=== PATIENT | male | born 1970 | race Caucasian/White ===

== ENCOUNTER 2020-11-13 14:35 | Outpatient (REF) | payer OTHER, SELFPAY | END 2020-11-13 14:36 | disposition home or self-care (01) | LOC: HO.LAB 14:35 | PROVIDERS: Visit Provider Internal Medicine | DX: Z20.822 Contact with and (suspected) exposure to COVID-19 (principal) | CPT/HCPCS: 36415; C9803; U0003 ==

== ENCOUNTER 2020-11-22 13:07 | Outpatient (REF) | payer OTHER, SELFPAY ==
[2020-11-22 13:47] LABS: MANUAL DIFF FLAG NO
[2020-11-22 14:03] LABS: Basophils Absolute Auto 0.1 X10*3/uL (0.0-0.2); Basophils Percent Auto 0.7 % (0-2); Eosinophils Absolute Auto 0.1 X10*3/uL (0.0-0.4); Eosinophils Percent Auto 1.2 % (0-4); Hematocrit 42.2 % (42-52); Hemoglobin 13.6 g/dl (14.0-18.0); Imm Gran Abs Auto 0.01 X10*3/uL (0.00-0.03); Imm Gran Pct Auto 0.1 % (0.0-0.4); Lymphocytes Percent Auto 29.1 % (20-40); Mean Corpuscular HGB Conc 32.2 g/dl (31.0-36.0); Mean Platelet Volume 12.3 fL (9.4-12.4); Monocytes Absolute Auto 0.6 X10*3/uL (0.1-1.2); Monocytes Percent Auto 8.2 % (2-11); Neutrophils Absolute Auto 4.2 X10*3/uL (2.0-8.3); Neutrophils Percent Auto 60.7 % (45-73); Platelet Count 203 X10*3/uL (160-400); Red Blood Count 4.69 X10*6/uL (4.60-5.80); Red Cell Distribution Width 13.6 % (11.0-16.0)
[2020-11-22 14:07] LABS: Glucose Urine UA NEG (NEG); Leukocyte Esterase Urine NEG (NEG); Nitrite Urine NEG (NEG); PH 5.5 (5.0-8.0); Specific Gravity - Urine >= 1.030 (1.005-1.025); Urine Blood NEG (NEG); Urine Ketones NEG (NEG); Urine Protein NEG (NEG-TRACE)
[2020-11-22 14:09] LABS: Appearance Urine CLEAR; Color Urine YELLOW
[2020-11-22 14:35] LABS: Alanine Aminotransferase 29 U/L (0-40); Albumin Level 4.3 g/dL (3.5-5.0); Alkaline Phosphatase 126 U/L (39-117); Anion Gap 14 (12-20); Aspartate Amino Transferase 24 U/L (5-37); Bilirubin Total 0.3 mg/dL (0.0-1.0); Blood Urea Nitrogen 13 mg/dL (9-16); Calcium 8.9 mg/dL (8.4-10.2); Carbon Dioxide 27 mmol/L (22-29); Chloride 102 mmol/L (96-108); Cholesterol 264 mg/dL; Estimated Glomerular Filt Rate > 60; Glucose Random 93 mg/dL (60-115); HDL Cholesterol 43 mg/dL; LDL Cholesterol Calculated 192 mg/dl; Potassium 4.8 mmol/l (3.3-5.1); Sodium 138 mmol/L (135-145); Total Protein 7.4 g/dL (6.5-8.0); Triglycerides 145 mg/dL
[2020-11-22 14:40] LABS: Reflex LDLD? No
[2020-11-22 14:59] LABS: Prostate Specific Antigen 0.69 ng/mL (<0.05-4.0); Vitamin D 25-OH Total 19.1 ng/mL (>30)
== END 2020-11-22 13:08 | disposition home or self-care (01) ==
LOC: HO.LAB 13:07
PROVIDERS: PCP Internal Medicine; Visit Provider Internal Medicine
DX: Z00.00 Encounter for general adult medical examination without abnormal findings (principal); E78.00 Pure hypercholesterolemia, unspecified; E55.9 Vitamin D deficiency, unspecified
CPT/HCPCS: 36415; 80053; 80061; 81003; 82306; 84153; 85025

== ENCOUNTER 2020-12-09 17:37 | Outpatient (REF) | payer OTHER, SELFPAY | END 2020-12-09 17:38 | disposition home or self-care (01) | LOC: HO.LAB 17:37 | PROVIDERS: Visit Provider Internal Medicine | DX: Z20.822 Contact with and (suspected) exposure to COVID-19 (principal) | CPT/HCPCS: 36415; C9803; U0003; U0005 ==

== ENCOUNTER 2021-05-23 13:33 | Outpatient (REF) | payer OTHER, SELFPAY ==
[2021-05-23 14:18] LABS: Alanine Aminotransferase 16 U/L (0-40); Albumin Level 4.4 g/dL (3.5-5.0); Alkaline Phosphatase 86 U/L (39-117); Aspartate Amino Transferase 24 U/L (5-37); Bilirubin Direct 0.2 mg/dL (0.0-0.5); Bilirubin Total 0.5 mg/dL (0.0-1.0); Cholesterol 206 mg/dL; HDL Cholesterol 48 mg/dL; LDL Cholesterol Calculated 146 mg/dl; Total Protein 6.6 g/dL (6.5-8.0); Triglycerides 62 mg/dL
[2021-05-23 15:46] LABS: Reflex LDLD? No
== END 2021-05-23 13:34 | disposition home or self-care (01) ==
LOC: HO.LNP 13:33
PROVIDERS: Visit Provider Internal Medicine
DX: E78.00 Pure hypercholesterolemia, unspecified (principal)
CPT/HCPCS: 80061; 80076

== ENCOUNTER 2022-02-02 11:01 | Outpatient (REF) | payer OTHER, SELFPAY ==
[2022-02-02 11:05] LABS: MANUAL DIFF FLAG NO
[2022-02-02 11:33] LABS: Basophils Absolute Auto 0.1 X10*3/uL (0.0-0.2); Basophils Percent Auto 0.9 % (0-2); Eosinophils Absolute Auto 0.1 X10*3/uL (0.0-0.4); Eosinophils Percent Auto 1.5 % (0-4); Hematocrit 45.8 % (42.0-52.0); Hemoglobin 14.7 g/dl (14.0-18.0); Imm Gran Abs Auto 0.01 X10*3/uL (0.00-0.03); Imm Gran Pct Auto 0.2 % (0.0-0.4); Lymphocytes Absolute Auto 1.6 X10*3/uL (1.2-4.9); Lymphocytes Percent Auto 24.9 % (20-40); Mean Corpuscular HGB Conc 32.1 g/dl (31.0-36.0); Mean Corpuscular Hemoglobin 29.3 pg (27.0-33.0); Mean Corpuscular Volume 91.4 fL (80.0-98.0); Mean Platelet Volume 12.5 fL (9.4-12.4); Monocytes Absolute Auto 0.6 X10*3/uL (0.1-1.2); Monocytes Percent Auto 8.4 % (2-11); Neutrophils Absolute Auto 4.2 x10*3/uL (2.0-8.3); Neutrophils Percent Auto 64.1 % (45-73); Platelet Count 220 X10*3/uL (160-400); Red Blood Count 5.01 X10*6/uL (4.60-5.80); Red Cell Distribution Width 13.3 % (11.0-16.0); White Blood Count 6.5 X10*3/uL (4.8-10.8)
[2022-02-02 11:40] LABS: Appearance Urine CLEAR; Color Urine YELLOW; Glucose Urine UA NEG (NEG); Leukocyte Esterase Urine NEG (NEG); Nitrite Urine NEG (NEG); PH 5.5 (5.0-8.0); Specific Gravity - Urine >= 1.030 (1.005-1.025); Urine Blood NEG (NEG); Urine Ketones NEG (NEG); Urine Protein NEG (NEG-TRACE)
[2022-02-02 11:48] LABS: Alanine Aminotransferase 24 U/L (0-40); Albumin Level 4.4 g/dL (3.5-5.0); Alkaline Phosphatase 66 U/L (39-117); Anion Gap 11 (12-20); Aspartate Amino Transferase 26 U/L (5-37); Bilirubin Total 0.8 mg/dL (0.0-1.0); Blood Urea Nitrogen 18 mg/dL (9-16); Calcium 9.6 mg/dL (8.4-10.2); Carbon Dioxide 27 mmol/L (22-29); Chloride 104 mmol/L (96-108); Cholesterol 202 mg/dL; Estimated Glomerular Filt Rate > 60; Glucose Random 110 mg/dL (60-115); HDL Cholesterol 51 mg/dL; LDL Cholesterol Calculated 139 mg/dl; Potassium 4.2 mmol/L (3.3-5.1); Sodium 138 mmol/L (135-145); Total Protein 7.4 g/dL (6.5-8.0); Triglycerides 64 mg/dL
[2022-02-02 12:03] LABS: PSA,Total (Free>4and<10) 0.63 ng/mL (0.00-4.00); Vitamin D 25-OH Total 27.8 ng/mL (>30)
== END 2022-02-02 11:02 | disposition home or self-care (01) ==
LOC: HO.LNP 11:01
PROVIDERS: Visit Provider Internal Medicine
DX: Z00.00 Encounter for general adult medical examination without abnormal findings (principal); Z12.5 Encounter for screening for malignant neoplasm of prostate; E55.9 Vitamin D deficiency, unspecified; E78.00 Pure hypercholesterolemia, unspecified
CPT/HCPCS: 80053; 80061; 81003; 82306; 84153; 85025

== ENCOUNTER 2022-06-15 15:48 | Emergency (ER) | payer OTHER, SELFPAY ==
--- NOTE | ~2022-06-15 | US_ITS ---
EXAMINATION: US VENOUS ULTRASOUND WITH DOPPLER LOWER EXTREMITY, LEFT CLINICAL INFORMATION: Left lower leg pain and cramping. COMPARISON: None TECHNIQUE: Ultrasound of the deep veins is performed from the hip to the calf with compression sonography and color and pulse Doppler assessment. Spectral analysis with color-flow imaging is performed. FINDINGS: There is normal venous compression and respiratory variation and augmented flow. The visualized common femoral vein, superficial femoral vein, profunda femoral vein, popliteal vein, and the trifurcation region shows no evidence of deep venous thrombosis. There is no significant popliteal fossa cyst. There is occlusive thrombus in the superficial saphenous vein in the left thigh. If the patient's symptoms persist, followup ultrasound in 5 days 7 days might be of value to exclude proximal propagation from a non-visualized calf vein. US/US venous duplex LE LT IMPRESSION: 1. No DVT demonstrated in the left lower extremity. 2. Occlusive thrombus in the superficial saphenous vein in the thigh. Superficial thrombophlebitis.
[2022-06-15 17:34] VITALS: BP 160/86; PULSE 60; RESP 18; TEMP 37.2; O2SAT 100; BMI 22.5
[2022-06-15 17:45] LABS: MANUAL DIFF FLAG NO
[2022-06-15 17:48] LABS: Basophils Absolute Auto 0.1 X10*3/uL (0.0-0.2); Basophils Percent Auto 0.8 % (0-2); Eosinophils Absolute Auto 0.1 X10*3/uL (0.0-0.4); Eosinophils Percent Auto 0.9 % (0-4); Hematocrit 44.2 % (42.0-52.0); Hemoglobin 14.7 g/dl (14.0-18.0); Imm Gran Abs Auto 0.03 X10*3/uL (0.00-0.03); Imm Gran Pct Auto 0.3 % (0.0-0.4); Lymphocytes Absolute Auto 1.9 X10*3/uL (1.2-4.9); Lymphocytes Percent Auto 21.6 % (20-40); Mean Corpuscular HGB Conc 33.3 g/dl (31.0-36.0); Mean Corpuscular Hemoglobin 29.5 pg (27.0-33.0); Mean Corpuscular Volume 88.8 fL (80.0-98.0); Mean Platelet Volume 11.9 fL (9.4-12.4); Monocytes Absolute Auto 0.6 X10*3/uL (0.1-1.2); Monocytes Percent Auto 7.1 % (2-11); Neutrophils Absolute Auto 6.1 x10*3/uL (2.0-8.3); Neutrophils Percent Auto 69.3 % (45-73); Platelet Count 200 X10*3/uL (160-400); Red Blood Count 4.98 X10*6/uL (4.60-5.80); Red Cell Distribution Width 13.5 % (11.0-16.0); White Blood Count 8.8 X10*3/uL (4.8-10.8)
[2022-06-15 17:52] LABS: Prothrombin Time 11.3 SEC (10.0-13.1)
[2022-06-15 18:06] LABS: Alanine Aminotransferase 24 U/L (0-40); Albumin Level 4.5 g/dL (3.5-5.0); Alkaline Phosphatase 71 U/L (39-117); Anion Gap 13 (12-20); Aspartate Amino Transferase 25 U/L (5-37); Bilirubin Total 0.4 mg/dL (0.0-1.0); Blood Urea Nitrogen 17 mg/dL (9-16); Calcium 9.3 mg/dL (8.4-10.2); Carbon Dioxide 28 mmol/L (22-29); Chloride 103 mmol/L (96-108); Estimated Glomerular Filt Rate > 60; Glucose Random 103 mg/dL (60-115); Potassium 4.4 mmol/L (3.3-5.1); Sodium 140 mmol/L (135-145); Total Protein 7.5 g/dL (6.5-8.0)
--- NOTE | 2022-06-15 19:42 | ED_ITS ---
HPI - Extremity Problem General Chief complaint: Extremity Problem Stated complaint: ?Left Leg Clot Time Seen by Provider: 06/15/22 18:55 Source: patient Mode of arrival: ambulatory History of Present Illness HPI Narrative: 52-year-old male with no significant past medical history presenting to the ED complaining left lower extremity cramping and palpable lump x1 week. Contacted PCP who instructed patient to come to the ED. Denies cigarette smoking, recent travel, long car ride/plane rides, history of clots, bleeding disorders/coagu lopathy, SOB/CP MD Complaint: extremity pain Onset (ago): week(s) Related Data Allergies Allergy/AdvReac Type Severity Reaction Status Date / Time No Known Allergies Allergy Verified 06/15/22 17:32 Review of Systems Review of Systems: Constitutional: No Fever, No Chills ENT/Mouth: No Ear Pain, No Nasal Congestion, No sore throat, No Rhinorrhea, No Swallowing Difficulty Cardiovascular: No Chest Pain, No SOB Respiratory: No Cough, No Sputum, No Wheezing Gastrointestinal: No Nausea, No Vomiting, No Diarrhea, No Constipation, No Abdominal pain Genitourinary: No Dysuria, No Urinary Incontinence/retention Musculoskeletal: + LLE cramping, No Myalgias, No Joint Swelling Skin: No Skin Lesions, No rash Neuro: No Weakness, No Numbness, No Paresthesias Yes all other systems are reviewed and are negative Constitutional: Constitutional: Reports as per [facility] Past Medical History Attestation statement: The following information was validated with the patient. Social History Social History Advance Directives: No Advance Directives Information Provided: No Physical Exam Vital Signs: Vital Signs: Last Vital Signs Temp 98.9 F 06/15/22 17:34 Pulse 60 06/15/22 17:34 Resp 18 06/15/22 17:34 BP 160/86 H 06/15/22 17:34 Pulse Ox 100 06/15/22 17:34 O2 Del Method 06/15/22 17:34 BMI result Body Mass Index 22.5 Const: General: cooperative, healthy appearing and no acute distress Orientation/consciousness: patient oriented x3 Limitations: no limitations HEENT: Head: Yes normal to inspection and Yes atraumatic Ears: hearing grossly normal bilaterally General nose exam: Normal external nose present Face and sinus: Yes normal facial exam Eyes: General: appearance normal, both eyes and all related structures EOM: EOMs intact bilaterally Neck: Neck: Yes normal visual inspection and Yes no meningeal signs Resp: Effort & Inspection: normal respiratory effort and no respiratory distress Auscultation: clear to auscultation bilaterally Cardio: Rate: regular rate Heart sounds: S1 normal heart sound present and S2 normal heart sound present GI: Inspection: Yes normal to inspection Skin: Rashes: no rashes Wounds: no wounds Neuro: General: patient oriented x3, tone normal and no meningeal signs Gait exam (Neuro): Normal gait present Extrem: Other: No appreciable lower extremity edema/swelling. + small palpable superficial thrombus to left lower extremity medial aspect below knee. Neurovascular intact distally. No streaking/ecchymosis Course Course Course Narrative: US venous duplex LE LT IMPRESSION: ? 1. No DVT demonstrated in the left lower extremity. 2. Occlusive thrombus in the superficial saphenous vein in the thigh. Superficial thrombophlebitis. -labs unremarkable Results discussed with patient including worrisome signs and symptoms and strict return precautions, and when to return to the emergency department. They verbal ized understanding and feel safe for discharge at this time. MDM - Extremity (Nontraumatic) MDM Narrative Medical decision making narrative: 52-year-old male with no significant past medical history presenting to the ED complaining left lower extremity cramping and palpable lump x1 week. On exam vi yuridia signs stable, NAD, nontoxic appearing, physical exam as above. Concern for DVT versus superficial thrombophlebitis. Low concern for CHF or infection Plan: Labs, venous duplex ultrasound Differential Diagnosis Differential diagnosis: Likely cellulitis, superficial thrombophlebitis, lower extremity edema and deep vein thrombosis of lower extremity Medical Records Attestation: I reviewed the patient's medical records. Lab Data Attestation: I reviewed the patient's lab results. Result diagrams: 06/15/22 17:39 06/15/22 17:39 Labs: Lab Results 06/15/22 06/15/22 06/15/22 Range/Units 17:39 17:39 17:39 WBC 8.8 (4.8-10.8) X10*3/uL RBC 4.98 (4.60-5.80) X10*6/uL Hgb 14.7 (14.0-18.0) g/dl Hct 44.2 (42.0-52.0) % MCV 88.8 (80.0-98.0) fL MCH 29.5 (27.0-33.0) pg MCHC 33.3 (31.0-36.0) g/dl RDW 13.5 (11.0-16.0) % Plt Count 200 (160-400) X10*3/uL MPV 11.9 (9.4-12.4) fL Immature Gran % (Auto) 0.3 (0.0-0.4) % Neut % (Auto) 69.3 (45-73) % Lymph % (Auto) 21.6 (20-40) % Morrill % (Auto) 7.1 (2-11) % Eos % (Auto) 0.9 (0-4) % Baso % (Auto) 0.8 (0-2) % Lymph # (Auto) 1.9 (1.2-4.9) X10*3/uL Morrill # (Auto) 0.6 (0.1-1.2) X10*3/uL Eos # (Auto) 0.1 (0.0-0.4) X10*3/uL Baso # (Auto) 0.1 (0.0-0.2) X10*3/uL Abs Immat Gran (auto) 0.03 (0.00-0.03) X10*3/uL Absolute Neuts (auto) 6.1 (2.0-8.3) x10*3/uL Absolute Nucleated RBC 0.000 (0.0-0.012) X10*3/uL Nucleated RBC % (auto) 0.0 (0.0-0.2) /100WBC PT 11.3 (10.0-13.1) SEC INR 1.0 (0.9-1.1) Sodium 140 (135-145) mmol/L Potassium 4.4 (3.3-5.1) mmol/L Chloride 103 (96-108) mmol/L Carbon Dioxide 28 (22-29) mmol/L Anion Gap 13 (12-20) BUN 17 H (9-16) mg/dL Creatinine 0.87 (0.5-1.4) mg/dL Estim Creat Clear Calc 116.0 Estimated GFR > 60 Random Glucose 103 (60-115) mg/dL Calcium 9.3 (8.4-10.2) mg/dL Total Bilirubin 0.4 (0.0-1.0) mg/dL AST 25 (5-37) U/L ALT 24 (0-40) U/L Alkaline Phosphatase 71 (39-117) U/L Total Protein 7.5 (6.5-8.0) g/dL Albumin 4.5 (3.5-5.0) g/dL Discharge Plan Discharge Clinical Impression: Superficial thrombophlebitis Patient Disposition: Home, Self-Care Instructions: Superficial Thrombophlebitis (ED) Additional Instructions: You have a superficial vein thrombus in her thigh. This is called superficial thrombophlebitis Recommend wearing compression stockings, apply heat, elevate your legs, take NSAIDs like Motrin/ibuprofen If symptoms persist we recommend follow-up ultrasound in 5-7 days. Preseptal follow-up with her doctor. If area begins look infected, is red, increasing swelling or your shortness of breath return to the ED Referrals: Bhargav Joe MD [Primary Care Provider] - 5 days
== END 2022-06-15 19:57 | disposition home or self-care (01) ==
PROVIDERS: Physician Assistant; Emergency Provider Internal Medicine; PCP Internal Medicine
DX: I80.02 Phlebitis and thrombophlebitis of superficial vessels of left lower extremity (principal); M79.662 Pain in left lower leg
CPT/HCPCS: 36415; 80053; 85025; 85610; 93971; 99283; 99284

== ENCOUNTER 2023-05-13 11:27 | Outpatient (REF) | payer OTHER, MEDICAID, SELFPAY ==
[2023-05-13 11:30] LABS: MANUAL DIFF FLAG NO
[2023-05-13 13:00] LABS: Basophils Absolute Auto 0.1 X10*3/uL (0.0-0.2); Basophils Percent Auto 0.9 % (0-2); Eosinophils Absolute Auto 0.2 X10*3/uL (0.0-0.4); Eosinophils Percent Auto 2.9 % (0-4); Hematocrit 44.5 % (42.0-52.0); Hemoglobin 14.4 g/dl (14.0-18.0); Imm Gran Abs Auto 0.03 X10*3/uL (0.00-0.03); Imm Gran Pct Auto 0.4 % (0.0-0.4); Lymphocytes Absolute Auto 2.4 X10*3/uL (1.2-4.9); Lymphocytes Percent Auto 29.6 % (20-40); Mean Corpuscular HGB Conc 32.4 g/dl (31.0-36.0); Mean Corpuscular Hemoglobin 29.9 pg (27.0-33.0); Mean Corpuscular Volume 92.3 fL (80.0-98.0); Mean Platelet Volume 12.4 fL (9.4-12.4); Monocytes Absolute Auto 0.8 X10*3/uL (0.1-1.2); Monocytes Percent Auto 9.3 % (2-11); Neutrophils Absolute Auto 4.6 x10*3/uL (2.0-8.3); Neutrophils Percent Auto 56.9 % (45-73); Platelet Count 214 X10*3/uL (160-400); Red Blood Count 4.82 X10*6/uL (4.60-5.80); Red Cell Distribution Width 14.2 % (11.0-16.0)
[2023-05-13 13:04] LABS: Appearance Urine Clear; Color Urine Dark Yellow; Glucose Urine UA Negative (Negative); Leukocyte Esterase Urine Negative (Negative); Nitrite Urine Negative (Negative); PH 5.5 (5.0-9.0); Urine Blood Negative (Negative); Urine Ketones Negative (Negative); Urine Protein Negative (Neg-Trace)
[2023-05-13 13:11] LABS: Bacteria Urine None Seen (None Seen); Hyaline Casts Urine 0-2 /LPF (0-2); RBC Urine 0-2 /HPF (0-2); Squamous Epithelial Cell Urine 0-2 /HPF (0-2); WBC Urine 0-5 /HPF (0-5)
[2023-05-13 13:36] LABS: Alanine Aminotransferase 31 U/L (0-40); Albumin Level 4.3 g/dL (3.5-5.0); Alkaline Phosphatase 113 U/L (39-117); Anion Gap 16 (12-20); Aspartate Amino Transferase 25 U/L (5-37); Bilirubin Total 0.4 mg/dL (0.0-1.0); Blood Urea Nitrogen 14 mg/dL (9-16); Calcium 10.2 mg/dL (8.4-10.2); Carbon Dioxide 26 mmol/L (22-29); Chloride 105 mmol/L (96-108); Cholesterol 278 mg/dL; Estimated Glomerular Filt Rate > 60; Glucose Fasting 103 mg/dL (60-99); HDL Cholesterol 45 mg/dL; LDL Cholesterol Calculated 194 mg/dl; Potassium 4.6 mmol/L (3.3-5.1); Sodium 142 mmol/L (135-145); Total Protein 7.8 g/dL (6.5-8.0); Triglycerides 198 mg/dL
[2023-05-13 13:45] LABS: Vitamin D 25-OH Total 34.9 ng/mL (>30)
== END 2023-05-13 11:28 | disposition home or self-care (01) ==
LOC: HO.LNP 11:27
PROVIDERS: Visit Provider Internal Medicine
DX: E55.9 Vitamin D deficiency, unspecified (principal); E78.00 Pure hypercholesterolemia, unspecified; Z12.5 Encounter for screening for malignant neoplasm of prostate
CPT/HCPCS: 80053; 80061; 81001; 82306; 84153; 85025

== ENCOUNTER 2023-08-20 10:55 | Outpatient (REF) | payer OTHER, SELFPAY ==
[2023-08-20 12:17] LABS: Cholesterol 254 mg/dL (<200); HDL Cholesterol 45 mg/dL (>40); LDL Cholesterol Calculated 193 mg/dL (<100); Triglycerides 80 mg/dL (<150)
[2023-08-20 12:25] LABS: Reflex LDLD? No
== END 2023-08-20 10:56 | disposition home or self-care (01) ==
LOC: HO.LNP 10:55
PROVIDERS: Visit Provider Internal Medicine
DX: E78.00 Pure hypercholesterolemia, unspecified (principal)
CPT/HCPCS: 80061

== ENCOUNTER 2024-05-18 10:52 | Outpatient (REF) | payer OTHER, SELFPAY ==
[2024-05-18 10:56] LABS: MANUAL DIFF FLAG NO
[2024-05-18 11:10] LABS: Appearance Urine Clear; Basophils Absolute Auto 0.1 X10*3/uL (0.0-0.2); Basophils Percent Auto 0.8 % (0-2); Color Urine Yellow; Eosinophils Absolute Auto 0.1 X10*3/uL (0.0-0.4); Eosinophils Percent Auto 1.3 % (0-4); Glucose Urine UA Negative (Negative); Hematocrit 44.2 % (42.0-52.0); Hemoglobin 14.1 g/dl (14.0-18.0); Imm Gran Abs Auto 0.09 X10*3/uL (0.00-0.03); Leukocyte Esterase Urine Negative (Negative); Lymphocytes Absolute Auto 2.4 X10*3/uL (1.2-4.9); Lymphocytes Percent Auto 27.3 % (20-40); Mean Corpuscular HGB Conc 31.9 g/dl (31.0-36.0); Mean Corpuscular Hemoglobin 29.3 pg (27.0-33.0); Mean Corpuscular Volume 91.7 fL (80.0-98.0); Mean Platelet Volume 10.3 fL (9.4-12.4); Monocytes Absolute Auto 0.8 X10*3/uL (0.1-1.2); Monocytes Percent Auto 9.6 % (2-11); Neutrophils Absolute Auto 5.2 x10*3/uL (2.0-8.3); Nitrite Urine Negative (Negative); Platelet Count 515 X10*3/uL (160-400); Red Blood Count 4.82 X10*6/uL (4.60-5.80); Urine Blood Negative (Negative); Urine Ketones Negative (Negative); Urine Protein Negative (Neg-Trace); White Blood Count 8.6 X10*3/uL (4.8-10.8)
[2024-05-18 11:12] LABS: Bacteria Urine None Seen (None Seen); Hyaline Casts Urine 0-2 /LPF (0-2); RBC Urine 0-2 /HPF (0-2); Squamous Epithelial Cell Urine 0-2 /HPF (0-2); WBC Urine 0-5 /HPF (0-5)
[2024-05-18 11:32] LABS: Alanine Aminotransferase 35 U/L (0-40); Albumin Level 4.1 g/dL (3.5-5.0); Alkaline Phosphatase 75 U/L (39-117); Anion Gap 14 (12-20); Aspartate Amino Transferase 23 U/L (5-37); Bilirubin Total 0.3 mg/dL (0.0-1.0); Blood Urea Nitrogen 17 mg/dL (9-16); Calcium 9.6 mg/dL (8.4-10.2); Carbon Dioxide 28 mmol/L (22-29); Chloride 100 mmol/L (96-108); Cholesterol 260 mg/dL (<200); Estimated Glomerular Filt Rate > 60; Glucose Fasting 109 mg/dL (60-99); HDL Cholesterol 34 mg/dL (>40); LDL Cholesterol Calculated 173 mg/dL (<100); Potassium 4.3 mmol/L (3.3-5.1); Sodium 138 mmol/L (135-145); Total Protein 7.8 g/dL (6.5-8.0); Triglycerides 266 mg/dL (<150)
[2024-05-18 11:40] LABS: PSA,Total (Free>4and<10) 1.21 ng/mL (0.00-4.00)
[2024-05-18 11:46] LABS: Vitamin D 25-OH Total 57.3 ng/mL (>30)
== END 2024-05-18 10:53 | disposition home or self-care (01) ==
LOC: HO.LNP 10:52
PROVIDERS: Visit Provider Internal Medicine
DX: Z00.00 Encounter for general adult medical examination without abnormal findings (principal); E55.9 Vitamin D deficiency, unspecified; E78.00 Pure hypercholesterolemia, unspecified; Z12.5 Encounter for screening for malignant neoplasm of prostate
CPT/HCPCS: 80053; 80061; 81001; 82306; 84153; 85025

== ENCOUNTER 2024-05-22 11:31 | Day surgery (SDC) | payer OTHER, SELFPAY ==
[2024-05-18 14:51] VITALS: BMI 23.5
--- NOTE | 2024-05-22 11:43 | HO.ANESPROP2 ---
FORMERLY [facility] Past Medical History Medical History Port-wine stain JAYME (obstructive sleep apnea) Psoriasis Surgical History Surgical History Hx of foot surgery Hx of knee surgery Hx of elbow surgery History of Problems with Anesthesia: No Social History Social History Patient Tobacco Use Status: Former Tobacco user Tobacco use type: Cigarette Use of substances other than those prescribed or required for medical reasons: Yes Are you DNR?: No Advance Directives: No Advance Directives Information Provided: Yes Meds Allergies Allergy/AdvReac Type Severity Reaction Status Date / Time No Known Allergies Allergy Verified 06/15/22 17:32 Active Medications: Current Medications Sodium Biphosphate/Sodium Phosphate (Sodium Phosphate,[place]-Dibasic 133 Ml Enema) 133 ml ID ONCE PRN PRN Reason: Poor Colonoscopy Prep Results Home Medications ?Medication ?Instructions ?Recorded ?Confirmed ?Last Taken ?Type aspirin 81 mg tablet,delayed 81 mg PO DAILY 05/18/24 05/18/24 Unknown History release valacyclovir 1 gram tablet 1,000 mg PO DAILY 05/18/24 05/18/24 Unknown History doxycycline monohydrate 100 mg 100 mg PO BID 05/22/24 05/22/24 05/22/24 History capsule Exam Height,Weight and Vital Signs: Height 6 ft 3 in Weight 85.275 kg Airway Mallampati Class: III TM Dist: >3cm Neck ROM: Full Loose/Missing/Broken Teeth: No Heart: RRR Lungs: CTA Assessment and Plan Assessment Anesthesia Assessment: Anesthesia Plan Discussed and Chart Reviewed Final Anesthetic Review History of Problems with Anesthesia: No NPO: Yes ASA Class: III Final Preanesthetic Review: Meds/Allgs Chart Reviewed, Consent Obtained/Reviewed and Anes Risks/Benef Reviewed Patient Risk: Intermediate Procedure Risk: Low Anesthetic Plan Anesthetic Plan: MAC: Disposition: Standard PACU
[2024-05-22 11:47] VITALS: BMI 23.2
[2024-05-22 11:55] VITALS: BP 129/64; PULSE 56; RESP 16; TEMP 37.1; O2SAT 99
[2024-05-22] MEDS: Lactated Ringers 1,000 ML 50 ML IVCONT (12:08)
--- NOTE | 2024-05-22 12:39 | PC.NURSE ---
Dr. Reyna at bedside, 24hr update documented on paper
--- NOTE | 2024-05-22 12:57 | HO.ANESPROP2 ---
[facility] Past Medical History Medical History Port-wine stain JAYME (obstructive sleep apnea) Psoriasis Surgical History Surgical History Hx of foot surgery Hx of knee surgery Hx of elbow surgery History of Problems with Anesthesia: No Social History Social History Patient Tobacco Use Status: Former Tobacco user Tobacco use type: Cigarette Use of substances other than those prescribed or required for medical reasons: Yes Are you DNR?: No Advance Directives: No Advance Directives Information Provided: Yes Meds Allergies Allergy/AdvReac Type Severity Reaction Status Date / Time No Known Allergies Allergy Verified 06/15/22 17:32 Active Medications: Current Medications Lactated Ringer's (Lr) 1,000 mls @ 50 mls/hr IVCONT .Q20H DENILSON Last Admin: 05/22/24 12:08 Dose: 50 mls/hr Sodium Biphosphate/Sodium Phosphate (Sodium Phosphate,Bullock-Dibasic 133 Ml Enema) 133 ml UT ONCE PRN PRN Reason: Poor Colonoscopy Prep Results Home Medications ?Medication ?Instructions ?Recorded ?Confirmed ?Last Taken ?Type aspirin 81 mg tablet,delayed 81 mg PO DAILY 05/18/24 05/18/24 Unknown History release valacyclovir 1 gram tablet 1,000 mg PO DAILY 05/18/24 05/18/24 Unknown History doxycycline monohydrate 100 mg 100 mg PO BID 05/22/24 05/22/24 05/22/24 History capsule Exam Height,Weight and Vital Signs: Height 6 ft 3 in Weight 84.028 kg Last Vital Signs Temp 98.7 F 05/22/24 11:55 Pulse 56 05/22/24 11:55 Resp 16 05/22/24 11:55 BP 129/64 05/22/24 11:55 Pulse Ox 99 05/22/24 11:55 O2 Del Method Room Air 05/22/24 11:55 Airway Mallampati Class: III TM Dist: >3cm Neck ROM: Full Loose/Missing/Broken Teeth: No Heart: RRR Lungs: CTA Assessment and Plan Assessment Anesthesia Assessment: Anesthesia Plan Discussed Final Anesthetic Review History of Problems with Anesthesia: No NPO: Yes ASA Class: III Final Preanesthetic Review: Meds/Allgs Chart Reviewed, Consent Obtained/Reviewed and Anes Risks/Benef Reviewed Patient Risk: Intermediate Procedure Risk: Low Anesthetic Plan Anesthetic Plan: MAC: Disposition: Standard PACU
[2024-05-22 13:50] VITALS: BP 112/62; PULSE 62; RESP 18; TEMP 36.2; O2SAT 99
--- NOTE | 2024-05-22 13:53 | PM.OP ---
Brief Operative Note Date of Service: 05/22/24 Pre-op diagnosis: Screening Post-op diagnosis: other (Diverticulosis) Procedure: Colonoscopy to the cecum and TI Surgeon: Nazario Reyna MD Anesthesia: MAC Was an Senior Private Client Advisor used for this Procedure?: No Estimated blood loss (mL): 0 Pathology: none sent Condition: stable Disposition: PACU
[2024-05-22 14:05] VITALS: BP 119/66; PULSE 60; RESP 18; TEMP 36.2; O2SAT 100
--- NOTE | 2024-05-22 14:09 | OP_ITS ---
DATE OF SERVICE: 05/22/2024 SURGEON: Nazario Reyna MD INDICATIONS: The patient presents for evaluation of colorectal cancer screening. Full consent has been obtained from him for this, including risks of bleeding and perforation. PREOPERATIVE DIAGNOSIS: Colorectal cancer screening. POSTOPERATIVE DIAGNOSIS: PROCEDURE PERFORMED: Colonoscopy to cecum and terminal ileum. ESTIMATED BLOOD LOSS: COMPLICATIONS: ANESTHESIA: Monitored anesthesia care. ASSISTANTS: SPECIMENS: POSTOPERATIVE DIAGNOSES: Colorectal cancer screening, diverticulosis, internal hemorrhoids. DESCRIPTION OF PROCEDURE: The patient was placed in the left lateral decubitus position. The digital rectal exam revealed no abnormalities. The Olympus video pediatric colonoscope was then entered into the rectum and advanced easily to the cecum. Once in the cecum, I did identify normal-appearing cecal pouch with appendiceal orifice and a normal-appearing ileocecal valve. The terminal ileum was cannulated and appeared normal. Scope was withdrawn back in the colon. The entire cecum and ileocecal valve appeared normal. The scope was then slowly withdrawn assessing all mucosal surfaces carefully. Preparation was excellent. I did not visualize any sign of polyps, colitis, nor angiodysplasias. There was a mild amount of sigmoid diverticulosis. In the rectum, scope was retroflexed, visualizing small internal hemorrhoids, but no other pathology. The rectal mucosa appeared normal. The scope was straightened and withdrawn from the patient. He tolerated the procedure well and was returned to the recovery area in stable condition. IMPRESSION: 1. Mild sigmoid diverticulosis. 2. Internal hemorrhoids. PLAN: Given today's negative exam and negative family history, I would recommend a followup colonoscopy in 10 years for screening. He will, otherwise, see me on a p.r.n. basis. MD ERIC Severino/ALEX / [phone]
== END 2024-05-22 14:45 | disposition home or self-care (01) ==
PROVIDERS: PCP Internal Medicine; Visit Provider Internal Medicine
PROC: 0DJD8ZZ Inspection of Lower Intestinal Tract, Via Natural or Artificial Opening Endoscopic (ICD-10-PCS; CPT 45378; principal; 2024-05-22 12:30)
DX: Z12.11 Encounter for screening for malignant neoplasm of colon (principal); K57.30 Diverticulosis of large intestine without perforation or abscess without bleeding; K64.8 Other hemorrhoids; L40.9 Psoriasis, unspecified; Z79.82 Long term (current) use of aspirin; Z79.899 Other long term (current) drug therapy; Z87.891 Personal history of nicotine dependence
CPT/HCPCS: 45378; J2250; J2704

== ENCOUNTER 2025-05-21 10:47 | Outpatient (REF) | payer OTHER, SELFPAY ==
[2025-05-21 10:55] LABS: MANUAL DIFF FLAG NO
[2025-05-21 11:26] LABS: Appearance Urine Clear; Glucose Urine UA Negative (Negative); PH 5.5 (5.0-9.0); Specific Gravity - Urine 1.020 (1.005-1.025)
[2025-05-21 11:28] LABS: Hematocrit 40.8 % (42.0-52.0); Hemoglobin 13.5 g/dl (14.0-18.0); Imm Gran Abs Auto 0.02 X10*3/uL (0.00-0.03); Imm Gran Pct Auto 0.3 % (0.0-0.4); Lymphocytes Absolute Auto 1.4 X10*3/uL (1.2-4.9); Mean Corpuscular HGB Conc 33.1 g/dl (31.0-36.0); Mean Corpuscular Hemoglobin 29.9 pg (27.0-33.0); Mean Corpuscular Volume 90.5 fL (80.0-98.0); NRBC Abs Auto 0.000 X10*3/uL (0.0-0.012); NRBC Pct Auto 0.0 /100WBC (0.0-0.2); Platelet Count 161 X10*3/uL (160-400); Red Blood Count 4.51 X10*6/uL (4.60-5.80); White Blood Count 5.8 X10*3/uL (4.8-10.8)
[2025-05-21 11:44] LABS: Alanine Aminotransferase 21 U/L (0-40); Albumin Level 4.0 g/dL (3.5-5.0); Alkaline Phosphatase 63 U/L (39-117); Anion Gap 9 (12-20); Aspartate Amino Transferase 24 U/L (5-37); Blood Urea Nitrogen 14 mg/dL (9-16); Calcium 8.5 mg/dL (8.4-10.2); Carbon Dioxide 27 mmol/L (22-29); Chloride 107 mmol/L (96-108); Cholesterol 218 mg/dL (<200); Estimated Glomerular Filt Rate > 60; HDL Cholesterol 47 mg/dL (>40); Potassium 4.3 mmol/L (3.3-5.1); Sodium 139 mmol/L (135-145); Total Protein 6.6 g/dL (6.5-8.0); Triglycerides 66 mg/dL (<150)
--- OUTSIDE RECORDS SUMMARY | 2025-05-21 11:56 | XMS_ITS | Data Portability ---
Author Organization [facility], [facility] Address [address] [place] [address] Assessment Encounter Date Assessment Date Assessment LastModified by Organization Details LastModified Time 01/17/2024 01/17/2024 Diagnosis: right elbow olecranon bursitis infected hardware HPI: Ty is a very pleasant 53-year-old gentleman who had an ORIF of his right elbow [place] [address] Wilson. The fracture went on to heal and he has had some ongoing issues with olecranon bursitis. He was seen last in May at which time he had olecranon bursitis. He reports that he was seen by dermatology they drained and cultures were negative she reports they cauterized it and it has been progressing nicely since then he now has had some ongoing drainage and is here today for follow-up. He Had a strep species growing in the elbow. He went to surgery for I&D and removal of hardware and 12/29/2023. The main incision is healed. He has a little bit of drainage out of the excision of the fistula. He remains on Augmentin. He tolerates it well. Past medical history: Right knee surgery, high cholesterol, sleep apnea, psoriasis Medications: Zoryve Allergies: NKDA Social history: Marijuana Family history: Diabetes and hypertension Past family, medical, social history and review of systems has been reviewed, updated and is located in the patient s chart. Examination:The patient is well appearing and in no apparent distress. Alert and oriented x3. Physical examination the right elbow reveals his incisions to be Healing well. Yuliet are removed and Steri-Strips were applied. There is no erythema and no evidence of infection. He does have some limits in range of motion of the elbow as a result of the previous fracture but reports no pain with range of motion of the elbow there is a small opening at the olecranon with some purulent drainage. Impression: Draining sinus status post ORIF right elbow fracture With removal of deep hardware Plan: I reviewed the findings with Ty at this point. He will continue on Augmentin for 6 weeks total postop. His sutures were removed and Steri-Strips were applied. He should keep this covered. He may return to work tomorrow. In 4 weeks for reevaluation. It appears his other hardware is not involved. He may start using steroid cream on his plaques. He will use TTylenol for pain. Embly speech recognition hr shared services consultant software was used to create portions of this document. An attempt at proof reading has been made to minimize errors. Please call for corrections. [email or web address] Not available 01/17/2024 13:11:39 02/17/2024 02/17/2024 Diagnosis: right elbow olecranon bursitis infected hardware HPI: Ty is a very pleasant 53-year-old gentleman who had an ORIF of his right elbow in [address] Wilson. The fracture went on to heal and he has had some ongoing issues with olecranon bursitis. He was seen last in May at which time he had olecranon bursitis. He reports that he was seen by dermatology they drained and cultures were negative she reports they cauterized it and it has been progressing nicely since then he now has had some ongoing drainage and is here today for follow-up. He Had a strep species growing in the elbow. He went to surgery for I&D and removal of hardware and 12/29/2023. The main incision is healed. He has a little bit of drainage out of the excision of the fistula. He finished his Augmentin. His elbow has been doing much better. It is not have any pain. He is working. He is happy with his result. Past medical history: Right knee surgery, high cholesterol, sleep apnea, psoriasis Medications: Zoryve Allergies: NKDA Social history: Marijuana Family history: Diabetes and hypertension Past family, medical, social history and review of systems has been reviewed, updated and is located in the patient s chart. Examination:The patient is well appearing and in no apparent distress. Alert and oriented x3. Physical examination the right elbow reveals his incisions to be Healing well. [place] are removed and Steri-Strips were applied. There is no erythema and no evidence of infection. He does have some limits in range of motion of the elbow as a result of the previous fracture but reports no pain with range of motion of the elbow. There is no sign of infection Impression: Resolved Draining sinus status post ORIF right elbow fracture With removal of deep hardware Plan: I reviewed the findings with Ty at this point. He has done very well. The wound has healed. He does not have any other symptoms. His other hardware does not appear infected. He will follow-up on a p.r.n. basis. All questions were answered. He may use Tylenol for pain. Embly speech recognition hr shared services consultant software was used to create portions of this document. An attempt at proof reading has been made to minimize errors. Please call for corrections. [email or web address] Not available 02/17/2024 12:47:40 05/19/2024 05/19/2024 Diagnosis: right elbow olecranon bursitis infected hardware HPI: Ty is a very pleasant 53-year-old gentleman who had an ORIF of his right elbow in [address] Wilson. The fracture went on to heal and he has had some ongoing issues with olecranon bursitis. He was seen last in May at which time he had olecranon bursitis. He reports that he was seen by dermatology they drained and cultures were negative she reports they cauterized it and it has been progressing nicely since then he now has had some ongoing drainage and is here today for follow-up. He Had a strep species growing in the elbow. He went to surgery for I&D and removal of hardware and 12/29/2023. The main incision is healed. He has a little bit of drainage out of the excision of the fistula. He finished his Augmentin. His elbow has been doing much better. It is not have any pain. He is working. He is happy with his result. 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 They debrided this and had drainage. He was started on doxycycline. It was improving. It has dried up again. Past medical history: Right knee surgery, high cholesterol, sleep apnea, psoriasis Medications: Zoryve Allergies: NKDA Social history: Marijuana Family history: Diabetes and hypertension Past family, medical, social history and review of systems has been reviewed, updated and is located in the patient s chart. Examination:The patient is well appearing and in no apparent distress. Alert and oriented x3. Physical examination the right elbow reveals his incisions to be Healing well. Yuliet are removed and Steri-Strips were applied. There is no erythema and no evidence of infection. He does have some limits in range of motion of the elbow as a result of the previous fracture but reports no pain with range of motion of the elbow. There is no sign of infection.. He does have a small scab on the tip of the olecranon. The operative incision is well-healed. Impression: Resolved Draining sinus status post ORIF right elbow fracture With removal of deep hardware And persistent scabbing Plan: I reviewed the findings with Ty at this point. He has done very well. The wound has healed. He does Have some new scabbing over the tip of the olecranon. I suspect this will resolve on its own. It will take more time. I will see him back in 6 weeks for reevaluation. He should finish up his doxycycline. He may continue to work. He may use Tylenol for pain. All questions were answered. If this looks worse, he may require further surgery in the future. His other hardware does not appear infected. Embly speech recognition hr shared services consultant software was used to create portions of this document. An attempt at proof reading has been made to minimize errors. Please call for corrections. [email or web address] Not available 05/19/2024 11:46:55 Plan of Treatment Reminders Order Date Submit Date Provider Last Modified By Organization Details Last Modified Time Details Appointments None recorde d. Lab None recorde d. Referral None recorde d. Procedures None recorde d. Surgeries None recorde d. Imaging XR, elbow, 3 or more view - RM 307 3V RIGHT ELBOW 024 05/19/20 24 [facility] [email or web address] [facility], [address], [place], [address], 4 09:01:56 XR, elbow, 3 or more view - 308 3V R ELBOW 024 02/17/20 24 [facility] [email or web address] [facility], [address], [address], [place], [address], 4 06:56:45 XR, elbow, 3 or more view - Room 309- 3V R Elbow- 1st PO - Pt in Room 024 01/17/20 [facility], [address], [place], [address], 4 15:57:20 Medication Orders None recorde d. Patient TargetsNo targets recorded. Patient Instructions Encounter Date Encounter Id Patient Instructions Last Modified By Organization Details Last Modified Time 01/17/2024 [id number] work status report* - PT MAY RETURN TO WORK 01/18/2024 cecelia Not available 01/24/2024 07:04:15 Reason for Referral None Reported. Results Created Date Observation Date Name Description Value Unit Range Abnormal Flag Note LastModifiedBy Organization Detail LastModifiedTime 05/19/20 24 05/19/2024 XR, elbow , 3 or more view http:/ [email or web address] ?Encry pted=s hAaTro YD8dLq bEUv6g %2BXZw aYqtaq 0bqfl% 2Fg9IQ a4ajBk vP9nXo QUaueC m3YtLR FvZlgJ JJ8mAn HZtai3 9h3733 AC0KpY nqHVqb eUC8mr 84%3D INTERFACE [facility] [address], [place], [address], 05/19/2024 09:30:48 05/19/20 24 05/19/2024 XR, elbow , 3 or more view [email or web address] ?Encry pted=s hAaTro YD8dLq bEUv6g %2BXZw aYqtaq 0bqfl% 2Fg9IQ a4ajBk vP9nXo QUaueC m3YtLR FvZlgJ JJ8mAn HZtai3 1d2657 AC0KpY nqHVqb eUC8mr 84%3D INTERFACE [facility] [address], [place], [address], 05/19/2024 09:30:50 06/30/20 24 12/07/2023 imagi ng/di agnos tic resul t No observ ation record ed. [email or web address] Not Available 06/03 16:25:22 06/30/20 24 09/21/2020 imagi ng/di agnos tic resul t No observ ation record ed. [email or web address] Not Available 06/03 16:26:02 06/30/20 24 09/30/2020 imagi ng/di agnos tic resul t No observ ation record ed. [email or web address] Not Available 06/03 16:26:07 Result Notes Documentation Provider Name and Address Organization Details Recorded Time Xr, Elbow, 3 Or More View : [email or web address] Encrypted=cvNwYgmFS2qArnM Uv6g%6LXGioQrcye5kodn%2Fg 3ZYs4byJfkO0kSbPLtvyRr8Nx TUZvErrSDW7kBtXVypc92e006 6PS2WrQrsZZnzpQN2mf26%3D Not Available [facility] 05/19/2024 09:3 0:49 Xr, Elbow, 3 Or More View : [email or web address] Encrypted=ytZfTnrLN4xJmcO Uv6g%8RYKuhWcvnz4qlmc%2Fg 4XUs6lxXevN7rHbDQftmJz5Rf KYJuUbkKNK7sWdRTfpn25c830 5EU3IePbwILgcaSF6gh40%3D Not Available [facility] 05/19/2024 09:3 0:51 Problems Name Problem SNOMED Code Status Onset Date Resolution Date Notes Provider Name and Address Organization Details Recorded Time Pain of right elbow joint 9705499000536 9109 Active 2023 OSMANISARAH cunningham [place] - [facility] 10:29:00 Closed fracture distal humerus, bicondylar (T-Y fracture) 590405527 Active 2023 Jadon Bray MD [address], [place], [place], [address], [facility] - [facility] 4 13:12:16 Pain associated with internal prosthetic device 083680247 Active 2023 Jadon Bray MD [address], [place], [place], [address], [facility] - [facility] 4 13:13:15 Problem Notes None recorded. Medical Equipment None Reported. Allergies No known drug allergies Medications Name Sig Start Date Stop Date Status Note LastModified by Organization Details LastModified Time amoxicillin 500 mg capsule TAKE 1 CAPSULE BY MOUTH TWO TIMES A DAY 02/16 completed Not Available Not Available Not Available doxycycline hyclate 100 mg capsule TAKE 1 CAPSULE BY MOUTH TWICE DAILY 01/16 completed Not Available Not Available Not Available valacyclovi r 1 gram tablet TAKE 1 TABLET BY MOUTH EVERY DAY FOR 30 DAYS active Not Available Not Available No t Available sulfamethox azole 800 mg-trimetho prim 160 mg tablet TAKE 1 TABLET BY MOUTH TWICE A DAY WITH FOOD 01/16 completed Not Available Not Available Not Available aspirin 81 mg tablet,julius yed release TAKE 1 TABLET BY MOUTH 2 TIMES A DAY. 01/16 completed Not Available Not Available Not Available doxycycline monohydrate 100 mg capsule TAKE 1 CAPSULE TWICE A DAY WITH FOOD FOR 7 DAYS active Not Available Not Available No t Available cephalexin 500 mg capsule TAKE 1 CAPSULE BY MOUTH FOUR TIMES A DAY FOR 5 DAYS 01/16 completed Not Available Not Available Not Available oxycodone 5 mg tablet TAKE 1 TABLET (5 MG TOTAL) BY MOUTH EVERY 4 (FOUR) HOURS NEEDED FOR PAIN 01/16 completed Not Available Not Available Not Available EC-Naproxen EC-Naprox en 500MG Tablet Delayed Release 11/20 completed Statu s: 'Disc ontin ued'; Not Available Not Available Not Available Zoryve 0.3 % topical cream Apply to the psoriasis areas once daily 01/16 completed Not Available Not Available Not Available Vitals Date Recorded Body height Body mass index (BMI) Body weight Provider Name and Address Organization Details Last Updated DateTime 01/17/2024 190.5 cm 25.7 kg/m2 59064.03 g OSMANI WELLS [facility] 01/17/2024 10:21:44 Date Recorded Body height Provider Name an d Address Organization Details Last Updated DateTime 02/17/2024 190.5 cm OSMANI WELLS [facility] 02/17/2024 11:10:48 Date Recorded Body height Body mass index (BMI) Body weight Provider Name and Address Organization Details Last Updated DateTime 05/19/2024 190.5 cm 25.6 kg/m2 82344.44 g OSMANI WELLS [facility] 05/19/2024 09:20:58 Social History None recorded. Functional Status None recorded. Mental Status None recorded. Family History Nothing Reported. Medical History No medical history recorded. Past Encounters Encounter ID Performer Location Encounter Start Date Encounter Closed Date Diagnosis/Indication Diagnosis SNOMED-CT Code Diagnosis ICD10 Code Diagnosis Note [id number] MD Mauri Barertt [address] [place] [address] [address] [place] [address] 01/17/2024 10:04:13 02/02/2024 15:57:20 Pain of right elbow joint 9851524397 0881216 M25.521 Closed fra cture distal humerus, bicondylar (T-Y fracture) 931617492 S42.491D Pain assoc iated with internal prosthetic device 959880276 T84.84XD [id number] MD Mauri Barrett [address] [facility] [address] [place] [address] 02/17/2024 10:30:13 03/10/2024 06:56:45 Pain of right elbow joint 1881555580 2264259 M25.521 Closed fra cture distal humerus, bicondylar (T-Y fracture) 917655521 S42.491D [id number] MD Mauri Barrett [address] [facility] [address] [place] [address] 05/19/2024 09:13:01 06/19/2024 09:01:55 Pain of right elbow joint 2415773991 9523506 M25.521 Closed fra cture distal humerus, bicondylar (T-Y fracture) 303841803 S42.491D Health Concerns Section Related Observation LastModified by Organization Detai ls LastModified Time None Recorded Concern Status LastModified by Organization Details LastModified Time None Recorded Advance Directives Directive None Recorded Payers Insurance Date Sequence Insurance Name Policy Number Policy [place] Covered Member ID [place] Member ID Guarantor Name 06/26/2024 1 [facility] [id number] 1 Ty Nicholson [id number] Ty Nicholson
--- OUTSIDE RECORDS SUMMARY | 2025-05-21 11:56 | XMS_ITS | Patient Health Record ---
Author Organization [facility] Address [address] [place] [address] Support Name Relationship Address Phone ELIANA LAO Emergency Contact [address] [place] [address] LATANYA LAO Guarantor Unknown [phone] Care Team Providers Care Pad Tufter Name Role Phone Heath RAI, Bhargav Primary Care Provider Nazario Slaughter [phone] Allergies No Known Allergies Reason For Referral No Information Medications Medication SIG (Take, Route, Frequency, Duration) Notes Start Date End Date Status Zoryve 0.3 % Apply to the psoriasis areas once daily External for 30 L400,Unavailabl e Active valACYclovir HCl 1 GM Oral for 30 Active Aspirin 81 81 MG 1 tablet Orally Once a day for 30 day(s) Active Social History Tobacco Use: Social History Observation Description Date Details (start date - stop date) Former Smoker NA - NA Tobacco Use/Smoking Question Answer Notes Patient is a former smoker How long has it been since you last smoked? 1-5 years Alcohol Screen Question Answer Notes Did you have a drink containing alcohol in the p ast year? No Points 0 Interpretation Negative Section Notes: Nonsmoker; no sig alcohol Problems Problem Type SNOMED Code ICD Code Onset Dates Problem Status W/U Status Risk Notes Problem Colon cancer screening (597853600) Colon cancer screening (Z12.11) Active confirmed Problem Pre-procedure evaluation check (293772501) Encounter for other preprocedural examination (Z01.818) Active confirmed Problem Diverticulosis o f large intestine without perforation or abscess without bleeding (K57.30) Active confirmed Encounters Encounter Location Date Provider Diagnosis [facility] Outpatient [address] [place], [place] [id number] 05/22/2024 Nazario Reyna Colon cancer scree kartik [...] hemorrhoids (ICD-10 - K64.8) Plan Of Treatment Future Test Test Name Order Date COLONOSCOPY 02/29/2024 Insurance Providers Payer Name Payer Address Payer Phone Subscriber Number Group Number Insured Name Patient Relationship to Insured Coverage Start Date Coverage End Date [facility] [address] [place] [address] [phone] [id number] LATANYA LAO Self - patient is the insured Medical (General) History Medical History History ICD Code Denies PR,DM,CVA,Lung disease,renal dise ase Psoriasis Surgical History Surgery Date(Month/Year) Elbow right 2023 Knee right 2022 Heel right 2007
--- OUTSIDE RECORDS SUMMARY | 2025-05-21 11:57 | XMS_ITS | Patient Health Record ---
Author Organization Bhargav Joe MD Address [address] [place], [place] [id number] Care Team Providers Care Duplex Trimmer Name Role Phone Bhargav Joe Primary Care Provider Allergies No Known Allergies Results Component Value Reference Range Notes Occult Blood, Stool, Guaiac Reviewed date:05/23/2024 05:03:31 PM Interpretation:Negative Performing Lab: Notes/Report: Negative Hold Lav - Possible Hematolo gy (Not yet reviewed by provider) Interpretation: Performing Lab:[facility], [address] [place] [phone] Notes/Report: Hold Lav - Possible Hematology SEE NOTE Specimen will be held untested for 8 hours. Call Hematology if testing is desired. Complete Blood Count Auto Di ff (Not yet reviewed by provider) Interpretation: Performing Lab:[facility], [address] [place] [phone] Notes/Report: White Blood Count 5.8 4.8-10.8 X10*3/uL [...] X10*3/uL NRBC Abs Auto 0.000 0.0-0.012 X10*3/uL UA ClnCatch+Micro w/rflx Cul t (Not yet reviewed by provider) Interpretation: Performing Lab:[facility], [address] [place] [phone] Notes/Report: [id number] Urine, Clean Catch Color Urine Yellow Appearance Urine Clear PH 5.5 5.0-9.0 Glucose Urine UA Negative Negative mg/dL Urine Blood Negative Negative Specific [place] - Urine 1.020 1.005-1.025 Urine Protein Negative Neg-Trace mg/dL Urine Ketones Negative Negative mg/dL Nitrite Urine Negative Negative Leukocyte Esterase Urine Negative Negative RBC Urine 0-2 0-2 /HPF WBC Urine 0-5 0-5 /HPF Squamous Epithelial Cell Urine 0-2 0-2 /HPF Bacteria Urine None Seen None Seen Hyaline Casts Urine 0-2 0-2 /LPF Reason For Referral Reason JAYME Diagnosis 1 [...] Referral Priority Routine Referral Appointment Date 09/12/2024 Medications Medication SIG (Take, Route, Frequency, Duration) Notes Start Date End Date Status valACYclovir HCl 1 GM 1 tablet Orally On ce a day for 90 days 05/18/2022 Active Vitamin D3 2000 UNIT 2 tablet Orally Onc e a day 01/07/2018 Active Tadalafil 20 MG as directed Oral onc e a day as needed for 30 days 12/27/2018 Active Zoryve 0.3 % 1 application Externally Once a day Active Silvadene 1 % 1 application to affected area Externally Once a day for 30 days 09/20/2017 Not-Taking Sildenafil Citrate 20 MG 2 tablet Orally Once a day for 30 day(s) 06/23/2018 Not-Taking Rosuvastatin Calcium 20 MG 1 tablet Orally Once a day for 30 day(s) 06/23/2018 Not-Taking Cephalexin 500 MG 1 capsule Orally Fou r times a day for 5 day(s) 05/20/2023 Active Immunizations Vaccine Route Administration Date Status Comme nts Covid Vaccine Unknown 02/09/2021 Administered [facility] a [facility] Lambert Fluarix Quadrivalent Unknown 11/19/2017 Refused Fluarix Quadrivalent Unknown 01/23/2019 Refused Fluarix Quadrivalent Unknown 11/29/2020 Refused Fluarix Quadrivalent Unknown 08/20/2023 Refused Social History Tobacco Use: Social History Observation [...] Problem Status W/U Status Risk Notes Problem 52949104 Vitamin D defici ency (E55.9) Active confirmed Problem 725634159 Erectile dysfunc tion due to diseases classified elsewhere (N52.1) Active confirmed Problem 0721757 Psoriasis (L40.9) Active confirmed Problem 12814489 Obstructive slee p apnea syndrome (G47.33) Active confirmed Problem 947868101 Erectile dysfunc tion, unspecified erectile dysfunction type (N52.9) Active confirmed Problem 548856553 Cervical disc di sease (M50.90) Active confirmed Problem 16597993 Hypercholesterol emia (E78.00) Active confirmed Problem 94395884 JAYME (obstructive sleep apnea) (G47.33) Active confirmed Problem Fasciculation of lower extremity (R25.3) Active confirmed Vital Signs Blood pressure diastolic 70 mm Hg 05/22/2024 isadora ght is down 19 pounds since 05-20-23 Height 73 in 05/22/2024 weight is down 19 pounds since 05-20-23 Blood pressure systolic 116 mm Hg 05/22/2024 weig ht is down 19 pounds since 05-20-23 Weight 187 lbs 05/22/2024 weight is down 19 pounds since 05-20-23 BMI 24.67 kg/m2 05/22/2024 weight is down 19 pounds since 05-20-23 Procedures Procedure Date Ordered Date Performed Result Body Sit e Colonoscopy, Screening 05/22/2024 05/22/2024 repeat 10y Encounters Encounter Location Date Provider Diagnosis Bhargav Joe MD [address] [place] [id number] 05/21/2025 Bhargav Joe Blood tests for rout ine general physical examination Z00.00 ; Hypercholesterolemia E78.00 ; Vitamin D deficiency E55.9 and Erectile dysfunction due to diseases classified elsewhere N52.1 Bhargav Joe MD [address] [place] [address] Drive [address] [place] [id number] 05/22/2024 Bhargav Joe JAYME (obstructive sle ep apnea) G47.33 ; Annual physical exam Z00.00 ; Hypercholesterolemia E78.00 ; Vitamin D deficiency E55.9 ; Colon cancer screening Z12.11 and Depression screening Z13.31 Bhargav Joe MD [address] [place] [address] Drive [address] [place] [id number] 10/03/2024 Bhargav Joe MD [address] [place] [address] Drive [address] [place] [id number] 03/27/2025 Bhargav Joe Assessments Encounter Date Diagnosis (ICD Code) Assessment Notes Treatment Notes Treatment Clinical Notes Section Notes 05/21/2025 Blood tests for rout ine general physical examination (ICD-10 - Z00.00) 05/22/2024 JAYME (obstructive sle ep apnea) (ICD-10 - G47.33) needs referral to sleep medicine at [facility] [place] NOT [place]EPTINGNEW PATIENTS, THE REFERRAL HAS BEEN MADE TO SLEEP MED SERVICES AT PATIENT REQUEST 05/22/2024 Annual physical exam (ICD-10 - Z00.00) l;abs reviewd and doiscussed with patient 05/21/2025 Hypercholesterolemia (ICD-10 - E78.00) 05/22/2024 Hypercholesterolemia (ICD-10 - E78.00) is going to get back on diet and recheck next year 05/21/2025 Vitamin D deficiency (ICD-10 - E55.9) 05/22/2024 Vitamin D deficiency (ICD-10 - E55.9) stable, will continue current regiment 05/21/2025 Erectile dysfunction due to diseases classified elsewhere (ICD-10 - N52.1) 05/22/2024 Colon cancer screeni ng (ICD-10 - Z12.11) guaiac negative 05/22/2024 Depression screening (ICD-10 - Z13.31) negtive screen Plan Of Treatment Pending Test Test Name Order Date MRI CERVICAL SPINE NO CONTRAST 8 Complete Blood Count Auto Diff 5 Hold Lav - Possible Hematology 5 Comprehensive [place]. Panel Fast 5 CRP High Sensitivity 05/21/2025 Lipid Panel 05/21/2025 PSA,Total (Free>4and<10) 05/21/2025 Vitamin D 25-OH Total 05/21/2025 Testosterone, Free/Total 05/21/2025 UA ClnCatch+Micro w/rflx Cult 05/21/2025 Next Appt Details Provider Name:Bhargav heart, 05/28/2025 03:30:00 PM, [address], [address], [place], [place], [phone], Insurance Providers Payer Name Payer Address Payer Phone Subscriber Number Group Number Insured Name Patient Relationship to Insured Coverage Start Date Coverage End Date [address] [facility] [phone] [id number] Ty Nicholson Self - patient is the insured Medical (General) History Medical History History ICD Code colonoscopy 2023 repeat in 10 years colonoscopy repeat 10y
[2025-05-21 12:04] LABS: PSA,Total (Free>4and<10) 0.79 ng/mL (0.00-4.00)
[2025-05-25 16:43] LABS: Testosterone, Free 71.1 pg/mL (35.0-155.0)
== END 2025-05-21 10:48 | disposition home or self-care (01) ==
LOC: HO.LNP 10:47
PROVIDERS: Visit Provider Internal Medicine
DX: Z00.00 Encounter for general adult medical examination without abnormal findings (principal); Z12.5 Encounter for screening for malignant neoplasm of prostate; E55.9 Vitamin D deficiency, unspecified; E78.00 Pure hypercholesterolemia, unspecified; N52.1 Erectile dysfunction due to diseases classified elsewhere
CPT/HCPCS: 80053; 80061; 81001; 82306; 84153; 84402; 84403; 85025; 86141

== ENCOUNTER 2025-07-04 08:48 | Outpatient (AMB) | payer OTHER, SELFPAY ==
--- OUTSIDE RECORDS SUMMARY | 2024-05-22 08:30 | XMS_ITS ---
Author Organization [facility] Address [address] [place] [address] Support Name Relationship Address Phone ELIANA LAO Emergency Contact [address] [place], [place] [id number] LATANYA LAO Guarantor Unknown [phone] Care Team Providers Care Medical Registrar Name Role Phone Heath RAI, Bhargav Primary Care Provider Nazario Slaughter [phone] Problems Problem Type SNOMED Code ICD Code Onset Dates Problem Status W/U Status Risk Notes Problem Diverticulosis o f large intestine without perforation or abscess without bleeding (K57.30) Active confirmed Encounters Encounter Location Date Provider Diagnosis [facility] [address] [place] [phone] 05/22/2024 Nazario Reyna Colon cancer scree kartik [...] Notes * LATANYA LAODOB:1970 (55 yo M)Acc No.[id number]:05/22/2024 COLON WITH MAC Patient: LATANYA ESCALANTE Provider: Judy Reyna MD :1970 A ge:53 Y S ex:Male Date:05/22/2024 Address:[address] [place] [address], [address] [id number] Pcp:Bhargav Joe MD Subjective: * Chief Complaints: [...] 0 05/22/2024 Generated for Edouard vivar/Ramona/Babsitting on: 0 07/04/2025 09:20 AM EDT
--- OUTSIDE RECORDS SUMMARY | 2024-05-22 12:00 | XMS_ITS ---
Author Organization Bhargav Joe MD Address [address] [place], [place] [phone] Care Team Providers Care Head Scorer Name Role Phone Bhargav Joe Primary Care [...] Problem Status W/U Status Risk Notes Problem [id number] JAYME (obstructive sleep apnea) (G47.33) Active confirmed Vital Signs Blood pressure systolic 116 mm Hg 05/22/20 24 Blood pressure diastolic 70 mm Hg 024 Height 73 in 05/22/2024 Weight 187 lbs 05/22/2024 BMI 24.67 kg/m2 05/22/2024 weight is down 19 pounds sin 05-20-23 Encounters Encounter Location Date Provider Diagnosis Bhargav Joe MD [address] [place] [phone] 05/22/2024 Bhargav Joe JAYME (obstructive sle ep apnea) G47.33 ; Annual physical exam Z00.00 ; Hypercholesterolemia E78.00 ; Vitamin D deficiency E55.9 ; Colon cancer screening Z12.11 and Depression screening Z13.31 Assessments Encounter Date Diagnosis (ICD Code) Assessment Notes Treatment Notes Treatment Clinical Notes Section Notes 05/22/2024 JAYME (obstructive sle ep apnea) (ICD-10 - G47.33) needs referral to [facility] medicine at [facility] IS NOT ACCEPTINGNEW PATIENTS, THE REFERRAL HAS [...] needs refe rral to sleep medicine at [facility] IS NOT ACCEPTINGNEW PATIENTS, THE REFERRAL HAS [...] Reason: Provider Name:Bhargav heart, 11/29/2025 03:00:00 PM, [address] [place] [address], [address] [place] [address], [phone], Provider Name:Bhargav heart, 05/23/2026 07:15:00 AM, [address] [place] [address], Suite [facility], [place], [place], [phone], Provider Name:Bhargav heart, 05/30/2026 02:30:00 PM, [address] [place] [address], [address] [place] [address], [phone], Progress Notes * Ty NICHOLSON MDOB:[birth year] (53 yo M)Acc No.[id number]:05/22/2024 Progress Notes Patient: Ty Smith Provider: Any Joe MD :1970 A ge:53 Y S ex:Male Date:05/22/2024 Address:[address] [place] [address], [id number] Subjective: * Chief Complaints: * A NNUAL [...] mg/dL Urine Blood Negative Negative - Specific [place] - Urine 1.020 1.005-1.025 - Urine Protein [...] Auto 0.000 0.0-0.012 - X10*3/uL L ab:Comprehensive [place]. Panel Fast (Order Date - 05/18/2024) (Collection [...] Notes: needs referral to sleep medicine at [facility] IS NOT ACCEPTINGNEW PATIENTS, THE REFERRAL HAS [...] 0 05/22/2024 Generated for Edouard vivar/Ramona/Shashank on: 0 07/04/2025 09:19 AM EDT History and Physical Notes * HPI (History [...] Total Score: 0 Interpretation and Intervention Depression Clarissae kartik Findings: Negative Follow-Up for Depression: : review [...]
--- OUTSIDE RECORDS SUMMARY | 2024-10-03 11:16 | XMS_ITS ---
Author Organization Bhargav Joe MD Address [address] [place] [phone] Care Team Providers Care Band Head Saw Operator Name Role Phone Bhargav Joe Primary Care Provider Medications Medication SIG (Take, Route, Fr equency, Duration) Notes Start Date End Date Status valACYclovir HCl 1 GM 1 tablet Orally On ce a day for 90 days 05/18/2022 Active Encounters Encounter Location Date Provider Diagnosis Bhargav Joe MD 10 [facility] [address] [place] [phone] 10/03/2024 Bhargav Joe Plan Of Treatment Medication Medication Name Sig Start Date Stop Date Notes valACYclovir HCl 1 GM 1 tablet Orally On ce a day for 90 days 05/18/2022 Next Appt Details Provider Name:Bhargav heart, 11/29/2025 03:00:00 PM, [address] [place] [address], [address] [place] [address], [phone], Provider Name:Bhargav heart, 05/23/2026 07:15:00 AM, [address] [place] [address], [address], [phone], Provider Name:Bhargav heart, 05/30/2026 02:30:00 PM, [address] [place] [address], [address], [phone], Progress Notes * Ty NICHOLSON MDOB:[birth year] (54 yo M)Acc No.[id number]:10/03/2024 Patient: Ty Smith :1970 A ge:54 Y S ex:Male Address:[address] [place] [address], [place], [address] * Refills Refill valACYclovir HCl Tablet, 1 GM, Orally, 90, 1 tablet, Once a day, 90 days, Refills=3 * true * Date: Generated for Edouard vivar/Ramona/Babsitting on: 0 07/04/2025 09:19 AM EDT
--- OUTSIDE RECORDS SUMMARY | 2025-03-27 10:37 | XMS_ITS ---
Author Organization Bhargav Joe MD Address [address] [place], [place] [phone] Care Team Providers Care Deposit Refund Clerk Name Role Phone Bhargav Joe Primary Care Provider REASON FOR VISIT RF Cialis Medications Medication SIG (Take, Route, Fr equency, Duration) Notes Start Date End Date Status Tadalafil 20 MG as directed Oral onc e a day as needed for 30 days 12/27/2018 Active Encounters Encounter Location Date Provider Diagnosis Bhargav Joe MD 10 [facility] [address] [place], [place] [phone] 03/27/2025 Bhargav Joe Plan Of Treatment Medication Medication Name Sig Start Date Stop Date Notes Tadalafil 20 MG as directed Oral onc e a day as needed for 30 days 12/27/2018 Next Appt Details Provider Name:Bhargav heart, 11/29/2025 03:00:00 PM, [address] [place] [address], Suite [facility], [place], [place], [phone], Provider Name:Bhargav heart, 05/23/2026 07:15:00 AM, [address] [place] [address], Suite [facility], [place], [place], [phone], Provider Name:Bhargav heart, 05/30/2026 02:30:00 PM, [address] [place] [address], Suite [facility], [place], [place], [phone], Progress Notes * Ty NICHOLSON MDOB:[birth year] (54 yo M)Acc No.[id number]:03/27/2025 Patient: Ty ESCALANTE :1970 A ge:54 Y S ex:Male Address:[address] [place] [address], [place], [address] * Refills Refill Tadalafil Tablet, 20 MG, Oral, 30, as directed, once a day as needed, 30 days, Refills=4 * true * Date: Generated for Edouard vivar/Ramona/Babsitting on: 0 07/04/2025 09:20 AM EDT
--- OUTSIDE RECORDS SUMMARY | 2025-05-21 03:00 | XMS_ITS ---
Author Organization Bhargav Joe MD Address [address] [place], [place] [id number] Care Team Providers Care Disulfurizer Tender Name Role Phone Bhargav Joe Primary Care Provider Results Component Value Reference Range Notes Complete Blood Count Auto Di ff Reviewed date:05/21/2025 12:41:55 PM Interpretation: Performing Lab:[facility], [address] [place] [phone] Notes/Report: White Blood Count 5.8 4.8-10.8 X10*3/uL [...] NRBC Abs Auto 0.000 0.0-0.012 X10*3/uL Comprehensive [place]. Panel Fa st Reviewed date:05/21/2025 12:42:12 PM Interpretation: Performing Lab:[address] [phone] Notes/Report: Sodium 139 135-145 mmol/L Potassium 4.3 [...] Sensitivity Reviewed date:05/25/2025 09:24:04 PM Interpretation: Performing Lab:[address] [phone] Notes/Report: CRP High Sensitivity 0.4 Reference Range [...] for Disease Control and Prevention and the [place] Heart Association. Circulation 2003; 107(3): 499-511. THIS TEST WAS PERFORMED AT: [facility] [address] [place] [phone] LAST BOLES MD Lipid Panel Reviewed date:05/21/2025 12:38:41 PM Interpretation: Performing Lab:[address] [phone] Notes/Report: Triglycerides 66 <150 mg/dL Desirable Triglyceride: [...] (Free>4and<10) Reviewed date:05/21/2025 12:37:57 PM Interpretation: Performing Lab:[facility], [address] [place] [phone] Notes/Report: PSA,Total (Free>4and<10) 0.79 0.00-4.00 ng/mL A [...] Total Reviewed date:05/21/2025 12:39:08 PM Interpretation: Performing Lab:[address] [phone] Notes/Report: Vitamin D 25-OH Total 78.7 >30 [...] Free/Total Reviewed date:05/25/2025 09:30:36 PM Interpretation: Performing Lab:[address] [phone] Notes/Report: Testosterone, Total 661 213-6889 ng/dL For additional information, please refer to http://education.Neoantigenics.Boombotix/faq/ TotalTestosteroneLCMSMSFAQ1 65 (This link is being provided for informational/ educational purposes only.) This test was developed and its analytical performance characteristics have been determined by [facility] [place], [place]. It has not been cleared or approved by the U.S. Food and Drug Administration. This assay has been validated pursuant to the CLIA regulations and is used for clinical purposes. Testosterone, Free 71.1 35.0-155.0 pg/mL This test was developed and its analytical performance characteristics have been determined by [facility] [place], [place]. It has not been cleared or approved by the U.S. Food and Drug Administration. This assay has been validated pursuant to the CLIA regulations and is used for clinical purposes. THIS TEST WAS PERFORMED AT: [facility] [address] CASIMIRO LAYNE MD,PHD UA ClnCatch+Micro w/rflx Cul t Reviewed date:05/21/2025 12:40:58 PM Interpretation: Performing Lab:[facility], [address] [place] [phone] Notes/Report: [id number] 0700 Urine, Clean Catch Color Urine Yellow Appearance Urine Clear PH 5.5 5.0-9.0 Glucose Urine UA Negative Negative mg/dL Urine Blood Negative Negative Specific [place] - Urine 1.020 1.005-1.025 Urine Protein Negative [...] Location Date Provider Diagnosis Bhargav Joe MD [address] [place] [phone] 05/21/2025 Bhargav Joe Blood tests for rout ine [...] Details Provider Name:Bhargav heart, 11/29/2025 03:00:00 PM, [address] [place] [address], [address], [phone], Provider Name:Bhargav heart, 05/23/2026 07:15:00 AM, [address] [place] [address], [phone], Provider Name:Bhargav heart, 05/30/2026 02:30:00 PM, [address] [place] [address], [address], [phone], Progress Notes * Ty NICHOLSON MDOB:[birth year] (55 yo M)Acc No.[id number]:05/21/2025 Progress Note Patient: Gisselle SANTINOGiuseppeTy Provider: Any Joe MD :1970 A ge:54 Y S ex:Male Date:05/21/2025 Address:[address] [place] [address], [id number] Subjective: * Chief Complaints: * 1 . [...] - 05/21/2025 07:00 AM) L AB: Comprehensive [place]. Panel Fast (Collection Date & Time - [...] - 05/21/2025 07:00 AM) L AB: Comprehensive [place]. Panel Fast (Collection Date & Time - [...] 0 05/21/2025 Generated for Edouard vivar/Ramona/Babsitting on: 0 07/04/2025 09:19 AM EDT
--- OUTSIDE RECORDS SUMMARY | 2025-05-28 06:30 | XMS_ITS ---
Author Organization Bhargav Joe MD Address [address] [place], [place] [phone] Care Team Providers Care Signal Constructor Name Role Phone Bhargav Joe Primary Care Provider [phone] Allergies No Known Allergies Reason For [...] kg/m2 05/28/2025 weight is down 7 pounds [facility] e 05-22-24 Encounters Encounter Location Date Provider Diagnosis Bhargav Joe MD [address] [place], [place] [phone] 05/28/2025 Bhargav Joe Annual physical exam Z00.00 [...] cpap needs referral to dr lim at [facility] Plan Of Treatment Treatment Notes Assessment Notes Annual physical exam Labs reviewed and d iscussed with patient Hypercholesterolemia is coming down on d iet JAYME (obstructive sleep apnea) is unable to use cpap needs referral to dr lim at [facility] Referrals Referral Date Details 05/28/2025 05/28/2025, JAYMEBuddy i Next Appt Details Follow Up: 6 Months, Reason: Provider Name:Bhargav heart, 11/29/2025 03:00:00 PM, [address], [address], [place], [place], [phone], Provider Name:Bhargav Stiles ier, 05/23/2026 07:15:00 AM, [address], [address], [place], [phone], Provider Name:Bhargav Stiles ier, 05/30/2026 02:30:00 PM, [address], [address], [place], [phone], Progress Notes * Ty NICHOLSON MDOB:[birth year] (54 yo M)Acc No.[id number]:05/28/2025 Progress Notes Patient: Gisselle MASTy Provider: Any Joe MD :1970 A ge:54 Y S ex:Male Date:05/28/2025 Address:[address] [place] [address], [id number] Subjective: * Chief Complaints: * A NNUAL [...] started going to gym and has a new product trainer twice a week. panic attacks went [...] mg/dL Urine Blood Negative Negative - Specific [place] - Urine 1.020 1.005-1.025 - Urine Protein [...] Auto 0.000 0.0-0.012 - X10*3/uL L ab:Comprehensive [place]. Panel Fast (Order Date - 05/21/2025) (Collection [...] cpap needs referral to dr lim at [facility] Referral To:Sammie Troy Neurology Reason:JAYME * Procedure Codes: * Follow Up: 6 Months * * Sign off status: Completed true * Provider: Any Joe MD Date: 0 05/28/2025 Generated for Edouard vivar/Ramona/Rudiransmitting on: 0 07/04/2025 09:19 AM EDT History [...] started going to gym and has a new product trainer twice a week. panic attacks went [...]
--- NOTE | 2025-07-04 08:53 | MHC.OFFVIS ---
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 Patient unable to use CPAP, not using due to feeling smothered(anxiety high and cant sleep). Witnessed apnea/snoring. Frequently using bathroom at night. Goes bed at 10pm wakes up at 6am. Waking up 2/3 times a night. Last sleep study done with SMS about 4/5 months ago. Patient states central Apnea. Allergies No Known Allergies Allergy (Verified 07/04/25 08:59) HPI Comments Details: 55 year old male here for a new pt. evaluation of central and obstructive sleep apnea. PMH: At 28 years of age he had AUD at that time, he stood up too quickly, saw floaters then passed out for 30seconds and woke up in a daze and he was shaking vigourously according to his friend who witnessed the seizure. He denies biting his tongue and urinary /bowel incontinence. He has been sober 8 years now. Never started keppra and never saw neurologist. 10/30/2024 [facility]G completed at [facility], he was unable to tolerate the cpap due to claustrophobia. He tried sitting in front of the tv and having it on his face, however this did not work for him etiher. He goes to bed at 10pm and gets up at 6am with 2 bathroom breaks a night. He had a sleep study 6 years ago and he has severe central and JAYME, he is supplied with a cpap machine. He has terrible anxiety and cluastrophobia and still unable to get acclimated to it.His pressures are low at 4cmH20 and his birthmark which lines the esophagus due to the tissue expanding in the lining he has a narrow airway and passageway for air movement. He has a deviated septum, broke his nose when he dove into a swimming pool. He is interested in Inspire. He grinds his teeth at night, no clenching of jaw, no jaw pain. He denies morning headaches. [facility] in [facility] [place] [place] <1 year ago. Labs reviewed with pt. today ldl elevated, and fasting glucose elevated. PFSH Medical History (Updated 07/05/25 @ 22:05 by Lorie Redmond PA-C) Port-wine stain JAYME (obstructive sleep apnea) Psoriasis Surgical History H/O colonoscopy Hx of foot surgery Hx of knee surgery Hx of elbow surgery Family History Father HTN (hypertension) Mother HTN (hypertension) Social History Patient Tobacco Use Status: Former Tobacco user Tobacco use type: Cigarette Physical Exam Vital Signs: Last Vital Signs Pulse 76 07/04/25 08:54 BP 124/84 07/04/25 08:54 Pulse Ox 96 07/04/25 08:54 Oxygen Delivery Method Room Air 07/04/25 08:54 BMI result Body Mass Index 22.3 Const General: cooperative, comfortable and no acute distress Nutritional Appearance: average body habitus Orientation/consciousness: patient oriented x3 HEENT Face and sinus: Yes face symmetric and Yes other (birthmark on face) Teeth and gingiva: other (mallampti score is 4) Eyes Pupils: Equal, round and reactive pupils present Neck Neck: Yes full ROM Resp Effort & Inspection: normal respiratory effort and able to speak in complete sentences Neuro General: patient oriented x3 and moves all extremities Cranial nerves: Yes Facial sensation intact/muscles of mastication intact, Yes Equal, round and reactive pupils present, Yes Normal accommodation reflex present, Yes Normal facial strength present, Yes Midline tongue present, Yes Ability to bilaterally rotate head present and Yes Ability to bilaterally elevate shoulders present Cognition (Neuro): normal cognition Gait exam (Neuro): Normal gait present Motor exam (neuro): 5/5 motor strength present throughout and Normal motor muscle tone present throughout Psych Appearance: grossly normal Mental Status: mental status grossly normal Speech and movement: Normal speech and movement present Thought process: Normal thought process present Thought content: Normal thought content present Results Reviewed Results Reviewed: PSG 10/30/2024 Assessment & Plan Assessment & Plan (1) JAYME (obstructive sleep apnea): Comment: does not use the machine. Code(s): G47.33 - Obstructive sleep apnea (adult) (pediatric) Category: Medical (2) Central sleep apnea: Code(s): G47.31 - Primary central sleep apnea Category: Medical (3) Chronic fatigue and malaise: Code(s): R53.82 - Chronic fatigue, unspecified; R53.81 - Other malaise Category: Medical (4) Anemia: Code(s): D64.9 - Anemia, unspecified Category: Medical Qualifiers: Anemia type: unspecified type Qualified Code(s): D64.9 - Anemia, unspecified (5) Excessive daytime sleepiness: Code(s): G47.19 - Other hypersomnia Category: Medical Plan JAYME and Central Sleep apnea PSG and will refer to ENT for evaluation for INspire and dise procedure if he meets critieria for inspire per psg. EEG - r/o seizure disorder labs reviewed with pt today and will r/o deficiencies with additional labs, B12 /homocysteine mma/ b6/ b1/ ferritin Orders: Orders Hemoglobin A1c 07/04/25 D64.9 - Anemia, unspecified, G47.31 - Primary central sleep apnea, G47.33 - Obstructive sleep apnea (adult) (pediatric), R53.81 - Other malaise, R53.82 - Chronic fatigue, unspecified Methylmalonic Acid 07/04/25 D64.9 - Anemia, unspecified, G47.31 - Primary central sleep apnea, G47.33 - Obstructive sleep apnea (adult) (pediatric), G47.9 - Sleep disorder, unspecified, R53.81 - Other malaise, R53.82 - Chronic fatigue, unspecified, R53.83 - Other fatigue Vitamin B1 07/04/25 D64.9 - Anemia, unspecified, G47.31 - Primary central sleep apnea, G47.33 - Obstructive sleep apnea (adult) (pediatric), R53.81 - Other malaise, R53.82 - Chronic fatigue, unspecified EEG electroencephalogram 07/04/25 D64.9 - Anemia, unspecified, G47.31 - Primary central sleep apnea, G47.33 - Obstructive sleep apnea (adult) (pediatric), R53.81 - Other malaise, R53.82 - Chronic fatigue, unspecified Ferritin 07/04/25 D64.9 - Anemia, unspecified, G47.31 - Primary central sleep apnea, G47.33 - Obstructive sleep apnea (adult) (pediatric), R53.81 - Other malaise, R53.82 - Chronic fatigue, unspecified IRON PROFILE 07/04/25 D64.9 - Anemia, unspecified, G47.31 - Primary central sleep apnea, G47.33 - Obstructive sleep apnea (adult) (pediatric), G47.9 - Sleep disorder, unspecified, R53.81 - Other malaise, R53.82 - Chronic fatigue, unspecified, R53.83 - Other fatigue Homocysteine 07/04/25 D64.9 - Anemia, unspecified, G47.31 - Primary central sleep apnea, G47.33 - Obstructive sleep apnea (adult) (pediatric), G47.9 - Sleep disorder, unspecified, R53.81 - Other malaise, R53.82 - Chronic fatigue, unspecified, R53.83 - Other fatigue Vitamin B6 07/04/25 D64.9 - Anemia, unspecified, G47.31 - Primary central sleep apnea, G47.33 - Obstructive sleep apnea (adult) (pediatric), R53.81 - Other malaise, R53.82 - Chronic fatigue, unspecified Vitamin B12 and Folate 07/04/25 D64.9 - Anemia, unspecified, G47.31 - Primary central sleep apnea, G47.33 - Obstructive sleep apnea (adult) (pediatric), R53.81 - Other malaise, R53.82 - Chronic fatigue, unspecified RT PSG in-lab sleep study Today G47.19 - Other hypersomnia, G47.33 - Obstructive sleep apnea (adult) (pediatric) Referrals Ear/Nose/Throat Referral G47.30 - Sleep apnea, unspecified, G47.31 - Primary central sleep apnea, G47.33 - Obstructive sleep apnea (adult) (pediatric) Patient Instructions: Sleep Hygiene provided: set a scheduled bedtime and wake time to help regulate the circadian rhythm and balance the release of pituitary hormones. Sleep in a dark room, temperatures below 68 degrees, and no devices n bed. Limit caffeinated products 6 hours prior to bed, and limit fluids 2-4 hours prior to bed. Gentle night yoga, diffusing essential oils, and playing soft music can be relaxing. Coding Level of Care Code New Pt Level 4 (95811) Diagnoses JAYME (obstructive sleep apnea) G47.33 Central sleep apnea G47.31 Chronic fatigue and malaise R53.82; R53.81 Anemia, unspecified type D64.9 Anemia type: unspecified type Excessive daytime sleepiness G47.19 Sleep Questionnaire Difficulty falling asleep: No (claustrophobia) Difficulty staying asleep?: Yes Number of arousals: 2-3x Snoring: Yes Witnessed apneas: Yes Gasping arousals: No Nocturia: Yes GERD: No Vivid dreams: Yes Acting out dreams: No Abnormal behavior in sleep: No Abnormal movements in sleep: No Morning headaches: No Excessive daytime sleepiness: Yes Daytime naps: Yes Restless legs: No Hallucinations: No Sleep paralysis: No Drop attacks: No Sleep Study: Yes CPAP: Yes
[2025-07-04 08:54] VITALS: BP 124/84; PULSE 76; O2SAT 96; BMI 22.3
--- OUTSIDE RECORDS SUMMARY | 2025-07-04 09:19 | XMS_ITS | Patient Health Record ---
Author Organization [facility] Address [address] [place] [address] Support Name Relationship Address Phone ELIANA LAO Emergency Contact [address] [place] [address] LATANYA LAO Guarantor Unknown [phone] Care Team Providers Care Wire Coiler Machine Operator Name Role Phone Heath RAI, Bhargav Primary Care Provider Nazario Slaughter Unavailable [phone] Allergies No Known Allergies Reason For Referral [...] Status Risk Notes Problem Colon cancer screening (691370261) Colon cancer screening (Z12.11) Active confirmed Problem Pre-procedure evaluation check (611879448) Encounter for other preprocedural examination (Z01.818) Active confirmed Problem Diverticulosis o f large intestine without perforation or abscess without bleeding (K57.30) Active confirmed Plan Of Treatment Future Test Test Name Order Date COLONOSCOPY 02/29/2024 Insurance Providers Payer Name Payer Address Payer Phone Subscriber Number Group Number Insured Name Patient Relationship to Insured Coverage Start Date Coverage End Date [facility] [address] [place] [phone] [id number] LATANYA LAO Self - patient is the insured Medical (General) History Medical History History ICD Code Denies [place],DM,CVA,Lung disease,renal dise ase Psoriasis Surgical History Surgery Date(Month/Year) Elbow right 2023 Knee right 2022 Heel right 2007
--- OUTSIDE RECORDS SUMMARY | 2025-07-04 09:19 | XMS_ITS | Encounter Summary ---
Author Organization [facility] Address [address] [place] [address] Phone Care Team Providers Care Gun Numberer Name Role Phone Bhargav Joe MD Primary Care Provider Dawit Merritt MD Unavailable [phone] Encounter Details Date Type Department Care Team (Late st Contact Info) Description 03/08/2023 Procedure Pass [facility], Ct Scan - [facility] [address] [place] [address] Social History Tobacco Use Types Packs/Day Years Used Date Smoking Tobacco: Every Day Smokeless Tobacco: Never Alcohol Use Standard Drinks/Week Comments Not Currently 0 (1 standard drink = 0.6 oz pur e alcohol) Education Answer Date Recorded Are you interested in more education? Not on christiana e 02/26/2023 Are you concerned about learning? Not on file 02/26/2023 No 02/26/2023 No 02/26/2023 Intimate Partner Violence Answer Date R ecorded Are you denied basic needs s uch as food, clothing, or medical care? No 03/08/2023 In the past 12 months have y ou been in a relationship with a person who hurts, threatens, or tries to control you? No 03/08/2023 Are you denied basic needs s uch as food, clothing, or medical care? No 03/08/2023 In the past 12 months have y ou been in a relationship with a person who hurts, threatens, or tries to control you? No 03/08/2023 Sex and Gender Information Value Date Recorded Sex Assigned at Male 09/20/2020 9:22 PM EST Legal Sex Male 9:16 PM EST Gender Identity Male 09/20/2020 9:22 PM EST Sexual Orientation Choose not to disclose 2019 9:22 PM EST documented as of this encounter Functional Status * Calculated C-SSRS Risk Score (Lifetime/Recent) Answer Date of Assessment Author No Risk Indicated 03/08/2023 8:03 AM EDT Taylor Mariscal RN * [place] Suicide Severity Rating Scale (Screener/Recent Self-Report) Question Answer Date of Assessment Author 1. Wish to be (Past 1 Month) No 023 8:03 AM EDT Taylor Mariscal RN 2. Non-Specific Active Suici truner Thoughts (Past 1 Month) No 03/08/2023 8:03 AM EDT Taylor Mariscal RN 6. Suicidal Behavior (Lifetime) No 3 8:03 AM EDT Taylor Mariscal RN documented as of this encounter Plan of Treatment Not on file documented as of this encounter Visit Diagnoses Not on filedocumented in this encounter Care Teams Gun Numberer Relationship Specialty Start Date End Date Bhargav Joe MD [address] [place] [address] Dr SHEFF[place]ELD [address] [place] [id number] PCP - General Internal Medicine 09/20/20 Dawit Merritt MD [address] [place] [address], [address] [place] [address] [email or web address] Insurance Assigned Provider 06/06/23 07/10/23 documented as of this encounter Additional Source Comments The information contained in this document represents components of the legal health record. It is not the complete legal health record.[facility]
--- OUTSIDE RECORDS SUMMARY | 2025-07-04 09:19 | XMS_ITS | Encounter Summary ---
Author Organization [facility] Address [address] [place] [address] Phone Care Team Providers Care Outplacement Consultant Name Role Phone Bhargav Joe MD Primary Care Provider Dawit Merritt MD Unavailable [phone] Encounter Details Date Type Department Care Team (Late st Contact Info) Description 03/08/2023 Procedure Pass [facility], Ct Scan - [facility] [address] [place] [address] Social History Tobacco Use Types Packs/Day Years [...] 8:03 AM EDT Taylor Mariscal RN * [place] Suicide Severity Rating Scale (Screener/Recent Self-Report) Question Answer Date of Assessment Author 1. Wish to be (Past 1 Month) No 023 8:03 AM EDT Taylor Mariscal RN 2. Non-Specific Active Suici turner Thoughts (Past 1 Month) No 03/08/2023 8:03 AM EDT Taylor Mariscal RN 6. Suicidal Behavior (Lifetime) No 3 8:03 AM EDT Taylor Mariscal RN documented as of this encounter Plan of Treatment Not on file documented as of this encounter Visit Diagnoses Not on filedocumented in this encounter Care Teams Outplacement Consultant Relationship Specialty Start Date End Date Bhargav Joe MD [address] [place] [address] Dr SHEFFIELD [address] [place] [address] PCP - General Internal Medicine 09/20/20 Dawit Merritt MD [address] [place] [address], [address] [place] [address] [email or web address] Insurance Assigned Provider 06/06/23 07/10/23 documented as of this encounter Additional Source Comments The information contained in this document represents components of the legal health record. It is not the complete legal health record.[facility]
--- OUTSIDE RECORDS SUMMARY | 2025-07-04 09:19 | XMS_ITS | Clinical Summary ---
Author Organization [facility] Address [address] [facility] [place] [address] Phone Care Team Providers Care News Director Name Role Phone Bhargav Joe MD Primary Care Provider Allergies No known active allergies Medications clobetasol (TEMOVATE) 0.05 % cream 1 application.. 02/09/2022 Active tacrolimus (PROTOPIC) 0.1 % ointment 1 application.. 02/09/2022 Active triamcinolone acetonide (KENALOG) 0.025 % lotion 1 application.. 05/18/2022 Active valACYclovir (VALTREX) 1000 MG tablet 1 tablet. 05/18/2022 Active oxyCODONE 5 MG immediate release tablet Take 1 tablet (5 mg total) by mouth every 4 (four) hours as needed for pain (specific location in comments). 30 tablet 03/15/2023 Active cephalexin (KEFLEX) 500 MG capsule Take 1 capsule (500 mg total) by mouth 4 (four) times a day. 40 capsule 03/15/2023 Active aspirin 81 MG EC tablet Take 1 tablet (81 mg total) by mouth 2 (two) times a day. 60 tablet 03/15/2023 Active Active Problems No known active problems Social History Tobacco Use Types Packs/Day Years Used Date Smoking Tobacco: Some Days Cigarettes Smokeless Tobacco: Current Tobacco Cessation:Ready to Q uit: Not Asked; Counseling Given: Not Answered Comments:On and off depending on stress stopped daily smoking 2017 Alcohol Use Standard Drinks/Week Comments Never 0 (1 standard drink = 0.6 oz pur e alcohol) sober 2016 Education Answer Date Recorded Are you interested in more education? Not on christiana e 02/26/2023 Are you concerned about learning? Not on file 02/26/2023 No 02/26/2023 No 02/26/2023 Digital Access Answer Date Recorded No 03/24/2023 No 03/24/2023 Reliable internet access at home? Not on file 03/24/2023 Device with a working camera? Not on file Intimate Partner Violence Answer Date R ecorded [...] not to disclose 2019 9:22 PM EST Last Filed Vital Signs Vital Sign Reading Time Taken Comments Blood Pressure 145/81 03/15/2023 12:56 PM EDT Pulse 70 03/15/2023 12:56 PM EDT Temperature 36.3 C (97.3 F) 03/15/2023 12:56 PM EDT Respiratory Rate 12 03/15/2023 12:56 PM EDT Oxygen Saturation 96% 03/15/2023 1:00 PM EDT Inhaled Oxygen Concentration - - Weight 90.7 kg (200 lb) 03/11/2023 10:18 AM EDT Height 182.9 cm (6') 03/11/2023 10:18 AM EDT Body Mass Index 27.12 03/11/2023 10:18 AM EDT Plan of Treatment Health Maintenance Due Date Last Done Comments Adult Td,Tdap Booster 1971 LIPID PANEL 1971 DEPRESSION SCREENING 1983 SMOKING Hx and SMOKELESS TOBACCO SCREENING 1984 HEPATITIS C SCREENING 1989 HIV ONE-TIME SCREENING (18-6 5 YEARS) 1989 PNEUMOCOCCAL VACCINES (50+ years) (1 of 2 - PCV) 1990 COLOGUARD 2016 COLONOSCOPY 2016 COLORECTAL CANCER SCREENING 2016 FIT TEST 2016 FOBT 2016 SIGMOIDOSCOPY 2016 VIRTUAL COLONOSCOPY 2016 ZOSTER VACCINES (1 of 2) 2021 COVID-19 VACCINE (2 - 2023-2 5 season) 2024 02/09/2021, 02/09/2021 SCREENING FOR DIABETES 03/12/2026 03/12/2023 HEPATITIS A VACCINES Aged Out No long er eligible based on patient's age to complete this topic HIB VACCINES Aged Out No longer eligi ble based on patient's age to complete this topic MENINGOCOCCAL VACCINES (ACWY) Aged Out No longer eligible based on patient's age to complete this topic MENINGOCOCCAL VACCINES (B) Aged Out N o longer eligible based on patient's age to complete this topic Medical Devices Implanted Type Area Laborer Salvage Device Identifier Shelf Expiration Date Model / Serial / Lot Screw Bone 60x3.5mm Compression Ss Locking Self Tapping Full Thread T15 Stardrive Recess - [id number] Implanted:Qty: 2 on 03/15/2023 by Nazario Son MD at [facility] Right: Knee [employer] 212.124 / / Screw Bone 40x3.5mm Compression Ss Locking Self Tapping Full Thread T15 Stardrive Recess - [id number] Implanted:Qty: 1 on 03/15/2023 by Nazario Son MD at [facility] Right: Knee [employer] 212.117 / / Screw Bone 50x3.5mm Compression Ss Locking Self Tapping Full Thread T15 Stardrive Recess - [id number] Implanted:Qty: 1 on 03/15/2023 by Nazario Son MD at [facility] Right: Knee [employer] 212.121 / / Screw Bone 3.5x40mm Cortex Self Tapping Fully Threaded Hex Head Ss - [id number] Implanted:Qty: 1 on 03/15/2023 by Nazario Son MD at [facility] [employer] Right: Knee [employer] 204.840 / / Screw Bone 3.5x38mm Cortex Self Tapping Fully Threaded Hex Head Ss - [id number] Implanted:Qty: 1 on 03/15/2023 by Nazario Son MD at [facility] [employer] Right: Knee [employer] 204.838 / / Screw Screw Right: Heel Screw Screw Right: Elbow Graft Bone [id number] Freeze Dried Readi Cancellous Implantable - [id number] Implanted:Qty: 1 on 03/15/2023 by Nazario Son MD at [facility] Right: Knee [facility] 03/[facility]/2026 CANBLOCK / / Tibia Plate 3.5x87mm Sm 4 Hole L Lcp Ss Variable Angle Bend Imal Right - [id number] Implanted:Qty: 1 on 03/15/2023 by Nazario Son MD at [facility] Right: Knee [employer] 02.127.210 / / Screw Self-Tapping 3.5 Va Locking Sd/70 - [id number] Implanted:Qty: 1 on 03/15/2023 by Nazario Son MD at [facility] Right: Knee [employer] 02.127.170 / / Screw Self-Tapping 3.5 Va Locking Sd/65 - [id number] Implanted:Qty: 1 on 03/15/2023 by Nazario Son MD at [facility] Right: Knee [employer] 02.127.165 / / Screw Self-Tapping 3.5 Va Locking Sd/80 - [id number] Implanted:Qty: 1 on 03/15/2023 by Nazario Son MD at [facility] Right: Knee [employer] 02.127.180 / / [place] [address] [place] [address] [facility] HMO [address] [place], [place] [address] HMO O O O Advance Directives For more information, please contact: [phone] (9AM - 5PM [place], Wednesday-Wednesday) * Full Code (Latest Code Status on File) Date Activated Date Inactivated Comments 03/15/2023 6:04 AM Question Answer Comments Code Status Confirmed With: Patient Care Teams News Director Relationship Specialty Start Date End Date Bhargav Joe MD [address] [place] [id number] PCP - General Internal Medicine 09/20/20 Additional Source Comments The information contained in this document represents components of the legal health record. It is not the complete legal health record.[facility]
--- OUTSIDE RECORDS SUMMARY | 2025-07-04 09:19 | XMS_ITS | Encounter Summary ---
Author Organization [facility] Address [address] [place] [address] Phone Care Team Providers Care Assurance Associate Name Role Phone Bhargav Joe MD Primary Care Provider Dawit Merritt MD Unavailable [phone] Encounter Details Date Type Department Care Team ([facility] st Contact Info) Description 03/15/2023 Procedure Pass [place] Admitting Dept - Virtual Department [address] [place] [address] Social History Tobacco Use Types Packs/Day Years Used Date Smoking Tobacco: Some Days Cigarettes Smokeless Tobacco: Current Comments:On and off dependin g on stress stopped daily smoking 2016 Alcohol Use Standard Drinks/Week Comments Never 0 [...] PM EST documented as of this encounter Plan of Treatment Not on file documented as of this encounter Visit Diagnoses Not on filedocumented in this encounter Care Teams Assurance Associate Relationship Specialty Start Date End Date Bhargav Joe MD [address] [place] [address] [place] [address] PCP - General Internal Medicine 09/20/20 Dawit Merritt MD [address] [place] [address], [address] [place] [address] [email or web address] Insurance Assigned Provider 06/06/23 07/10/23 documented as of this encounter Additional Source Comments The information contained in this document represents components of the legal health record. It is not the complete legal health record.[facility]
--- OUTSIDE RECORDS SUMMARY | 2025-07-04 09:19 | XMS_ITS | Patient Health Record ---
Author Organization Bhargav Joe MD Address [address] [place], [place] [address] Care Team Providers Care Chart Calculator Name Role Phone Bhargav Joe Primary Care Provider [phone] Allergies No Known Allergies Results Component Value Reference Range Notes Hold Lav - Possible Hematolo gy Reviewed date:05/21/2025 12:37:49 PM Interpretation: Performing Lab:[facility], [address] [place] [phone] Notes/Report: Hold Lav - Possible Hematology SEE NOTE Specimen will be held untested for 8 hours. Call Hematology if testing is desired. Complete Blood Count Auto Di ff Reviewed date:05/21/2025 12:41:55 PM Interpretation: Performing Lab:[facility], [address] [place] [phone] Notes/Report: White Blood Count 5.8 4.8-10.8 X10*3/uL [...] NRBC Abs Auto 0.000 0.0-0.012 X10*3/uL Comprehensive [place]. Panel Fa st Reviewed date:05/21/2025 12:42:12 PM Interpretation: Performing Lab:[facility], [address] [place] [phone] Notes/Report: Sodium 139 135-145 mmol/L Potassium 4.3 [...] Sensitivity Reviewed date:05/25/2025 09:24:04 PM Interpretation: Performing Lab:[facility], [address] [place] [phone] Notes/Report: CRP High Sensitivity 0.4 Reference Range Optimal <1.0 Lyle VELAZQUEZ et al. Endocr Pract.2017;23(Suppl 2):1-87. For ages [...] for Disease Control and Prevention and the [place] [employer]. Circulation 2003; 107(3): 499-511. THIS TEST WAS PERFORMED AT: [facility] [address] [place] [phone] LAST BOLES MD Lipid Panel Reviewed date:05/21/2025 12:38:41 PM Interpretation: Performing Lab:[facility], [address] [place] [phone] Notes/Report: Triglycerides 66 <150 mg/dL Desirable Triglyceride: [...] (Free>4and<10) Reviewed date:05/21/2025 12:37:57 PM Interpretation: Performing Lab:[address] [phone] Notes/Report: PSA,Total (Free>4and<10) 0.79 0.00-4.00 ng/mL A [...] Total Reviewed date:05/21/2025 12:39:08 PM Interpretation: Performing Lab:[address] [phone] Notes/Report: Vitamin D 25-OH Total 78.7 >30 [...] Free/Total Reviewed date:05/25/2025 09:30:36 PM Interpretation: Performing Lab:[address], [place] [address] Notes/Report: Testosterone, Total 705 390-9788 ng/dL For additional information, please refer to http://education.Audio Shack/faq/ TotalTestosteroneLCMSMSFAQ1 65 (This link is being provided for informational/ educational purposes only.) This test was developed and its analytical performance characteristics have been determined by [employer] [place] [place]. It has not been cleared or approved by the U.S. Food and Drug Administration. This assay has been validated pursuant to the CLIA regulations and is used for clinical purposes. Testosterone, Free 71.1 35.0-155.0 pg/mL This test was developed and its analytical performance characteristics have been determined by [employer] [place] [place]. It has not been cleared or approved by the U.S. Food and Drug Administration. This assay has been validated pursuant to the CLIA regulations and is used for clinical purposes. THIS TEST WAS PERFORMED AT: [facility] [address] CASIMIRO LAYNE MD,PHD [employer] w/rflx Cul t Reviewed date:05/21/2025 12:40:58 PM Interpretation: Performing Lab:[facility], [address] [place] [phone] Notes/Report: [id number] Urine, Clean Catch Color Urine Yellow Appearance Urine Clear PH 5.5 5.0-9.0 Glucose Urine UA Negative Negative mg/dL Urine Blood Negative Negative Specific Tracy - Urine 1.020 1.005-1.025 Urine Protein Negative [...] Bhargav Joe MD Referring Provider First Name Bahrgav Referring Provider Last Name Heath Referring Provider Speciality Internal M edicine Referred Provider Sammie Troy Referred Provider Specialty Neurology General Notes ShabanaGladysArely 0 05/28/2025 11:28:20 AM > patient will be calling me when referral can be faxed to office, Arely Donald 06/15/2025 03:16:40 PM > referral info faxed, Melody Moe 06/28/2025 03:25:34 PM >APPT SCHEDULEDFOR 07/04/25 @ 9AM, PATIENT AWARE Referral Priority Routine Referral Appointment Date 07/04/2025 Medications Medication SIG (Take, Route, Frequency, Duration) Notes Start Date End Date Status Silvadene 1 % 1 application to affected area Externally Once a day for 30 days 09/20/2017 Not-Taking valACYclovir HCl 1 GM 1 tablet Orally On ce a day for 90 days 05/18/2022 Active Tadalafil 20 MG as directed Oral onc e a day as needed for 30 days 12/27/2018 Active Rosuvastatin Calcium 20 MG 1 tablet Orally Once a day for 30 day(s) 06/23/2018 Not-Taking Sildenafil Citrate 20 MG 2 tablet Orally Once a day for 30 day(s) 06/23/2018 Not-Taking Zoryve 0.3 % 1 application Externally Once a day Active Vitamin D3 2000 UNIT 2 tablet Orally Onc e a day 01/07/2018 Active Immunizations Vaccine Route Administration Date Status [...] Problem Status W/U Status Risk Notes Problem 89757615 Vitamin D defici ency (E55.9) Active confirmed Problem 406119393 Erectile dysfunc tion due to diseases classified elsewhere (N52.1) Active confirmed Problem 5609521 Psoriasis (L40.9) Active confirmed Problem 09298905 Obstructive slee p apnea syndrome (G47.33) Active confirmed Problem 626723132 Erectile dysfunc tion, unspecified erectile dysfunction type (N52.9) Active confirmed Problem 758289114 Cervical disc di sease (M50.90) Active confirmed Problem 32323880 Hypercholesterol emia (E78.00) Active confirmed Problem 84414456 JAYME (obstructive sleep apnea) (G47.33) Active confirmed Problem Fasciculation of lower extremity (R25.3) Active confirmed Vital Signs Blood pressure diastolic 64 mm Hg 05/28/2025 isadora ght is down 7 pounds since 05-22-24 Height 73 in 05/28/2025 weight is down 7 pounds since 05-22-24 Blood pressure systolic 102 mm Hg 05/28/2025 weig ht is down 7 pounds since 05-22-24 Weight 180 lbs 05/28/2025 weight is down 7 pounds since 05-22-24 BMI 23.75 kg/m2 05/28/2025 weight is down 7 pounds since 05-22-24 Encounters Encounter Location Date Provider Diagnosis Bhargav Joe MD [address] [place] [phone] 05/21/2025 Bhargav Joe Blood tests for rout ine general physical examination Z00.00 ; Hypercholesterolemia E78.00 ; Vitamin D deficiency E55.9 and Erectile dysfunction due to diseases classified elsewhere N52.1 Bhargav Joe MD [address] [place] [phone] 05/28/2025 Bhargav Joe Annual physical exam Z00.00 ; Hypercholesterolemia E78.00 and JAYME (obstructive sleep apnea) G47.33 Bhargav Joe MD [address] [place] [phone] 10/03/2024 Bhargav Joe MD [address] [place] [address] Drive [address] [place] [phone] 03/27/2025 Bhargav Joe Assessments Encounter Date Diagnosis (ICD Code) Assessment Notes Treatment Notes Treatment Clinical Notes Section Notes 05/21/2025 [address] tests [address] ine general physical examination (ICD-10 - Z00.00) 05/28/2025 Annual physical exam (ICD-10 - Z00.00) Labs reviewed and discussed with patient 05/21/2025 Hypercholesterolemia (ICD-10 - E78.00) 05/28/2025 Hypercholesterolemia (ICD-10 - E78.00) is coming down on diet 05/21/2025 Vitamin D deficiency (ICD-10 - E55.9) 05/28/2025 JAYME (obstructive sle ep apnea) (ICD-10 - G47.33) is unable to use cpap needs referral to dr lim at [facility] [place] 05/21/2025 Erectile dysfunction due to diseases classified elsewhere (ICD-10 - N52.1) Plan Of Treatment Pending Test Test Name Order Date MRI CERVICAL SPINE NO CONTRAST 8 Next Appt Details Provider Name:Bhargav heart, 11/29/2025 03:00:00 PM, [address] [place] [address], [address], [phone], Provider Name:Bhargav heart, 05/23/2026 07:15:00 AM, [address] [place] [address], [place] [address], [place], [place], [phone], Provider Name:Bhargav heart, 05/30/2026 02:30:00 PM, [address] [place] [address], [address], [phone], Insurance Providers Payer Name Payer Address Payer Phone Subscriber Number Group Number Insured Name Patient Relationship to Insured Coverage Start Date Coverage End Date [facility] [address] [facility] [address] [place] [phone] [id number] Ty Nicholson Self - patient is the insured Medical (General) History Medical History History ICD Code colonoscopy 2023 repeat in 10 years colonoscopy repeat 10y
--- OUTSIDE RECORDS SUMMARY | 2025-07-04 09:20 | XMS_ITS | Encounter Summary ---
Author Organization [facility] Address [address] [facility] [facility] [address] [place] [address] Phone Care Team Providers Care Motorized Squad Captain Name Role Phone Bhargav Joe MD Primary Care Provider Dawit Merritt MD Unavailable [phone] Encounter Details Date Type Department Care Team (Late st Contact Info) Description 09/20/2020 Procedure Pass [facility], Ct Scan - [address] [address] Social History Tobacco Use Types Packs/Day Years Used Date Smoking Tobacco: Every Day Smokeless Tobacco: Never Alcohol Use Standard Drinks/Week Comments Not Currently 0 (1 standard drink = 0.6 oz pur e alcohol) Sex and Gender Information Value Date Recorded [...] on filedocumented in this encounter Care Teams Motorized Squad Captain Relationship Specialty Start Date End Date Bhargav Joe MD [address] [place] [address] [place] [address] PCP - General Internal Medicine 09/20/20 Dawit Merritt MD [address] [facility] [place] [address] [email or web address] Insurance Assigned Provider 06/06/23 07/10/23 documented as of this encounter Additional Source Comments The information contained in this document represents components of the legal health record. It is not the complete legal health record.[facility]
== END 2025-07-04 09:54 | disposition home or self-care (01) ==
LOC: HO.HSMC 08:50
PROVIDERS: PCP Internal Medicine; Visit Provider Physician Assistant Medical
DX: G47.33 Obstructive sleep apnea (adult) (pediatric) (principal); G47.31 Primary central sleep apnea; R53.82 Chronic fatigue, unspecified; R53.81 Other malaise; D64.9 Anemia, unspecified; G47.19 Other hypersomnia
CPT/HCPCS: 99204

== ENCOUNTER 2025-08-10 08:19 | Outpatient (REF) | payer OTHER, SELFPAY ==
--- OUTSIDE RECORDS SUMMARY | 2025-08-10 08:24 | XMS_ITS | Clinical Summary ---
Author Organization [facility] Address [address] [place] [address] Care Team Providers Care Operating Engineer Apprentice Name Role Phone Unavailable Primary Care Provider Unavailabl e Encounters Date Type Department Care Team Description 07/09/2025 Transcribe Orders [facility] [place] [address] [place] [address] Dawit Andre MD Primary sleep apnea of , unspecified type (Primary Dx) from Last 3 Months Social History Tobacco Use Types Packs/Day Years Used Date Smoking Tobacco: Never Assessed Sex and Gender Information Value Date Recorded Sex Assigned at Not on file Legal Sex Male 1:11 PM EDT Gender Identity Not on file Sexual Orientation Not on file Plan of Treatment Health Maintenance Due Date Last Done Comments Hepatitis C Virus Screening 1970 HIV Screening 1984 DTaP/Tdap/Td Vaccines (1 - Tdap) 1990 Hepatitis B Vaccines (1 of 3 - 19+ 3-dose series) 11/1989 Colonoscopy 2016 Pneumococcal Vaccines 50+ (1 of 1 - PCV) 2021 Zoster (Shingles) Vaccine (1 of 2) 2021 Influenza Vaccine 2025 COVID-19 Vaccine (1 - 2023-25 season) [address] [facility]
--- OUTSIDE RECORDS SUMMARY | 2025-08-10 08:24 | XMS_ITS ---
Author Name [facility] Organization Unknown Problems Problem Status Onset Date Problem Type Date of Resoluti on Source Primary sleep apnea of , unspecified type active EncounterDiagnosisAct CCT
--- NOTE | 2025-08-10 08:30 | EEG_ITS ---
Reason for Exam: G47.33 Obstuctive sleep apnea Roomed Performed:?402 History: Port-wine stain, JAYME, Psoriasis Medication: Technical description:? Photic stimulation: Completed Hyperventilation:?Completed Behavioral state: cooperative State of Consciousness: awake Skull defect: None Sedation: None Handedness: Right Duration of study:? 31min ? ? 20sec Description: This is a 16 channel EEG with an EKG lead. Patient is reported awake during the tracing. Background EEG rhythm is 10-12 hertz 5-50 microvolt posteriorly and lower amplitude fast anteriorly. Photic stimulation does not produce any significant driving. Hyperventilation is unremarkable. Cardiac lead does not reveal any significant abnormality. No sharp wave spikes or paroxysmal tendency noted. Impression: Unremarkable EEG. MTDD
== END 2025-08-10 08:20 | disposition home or self-care (01) ==
LOC: HO.NEURO 08:19
PROVIDERS: PCP Internal Medicine; Visit Provider Physician Assistant Medical
DX: G47.33 Obstructive sleep apnea (adult) (pediatric) (principal); G47.31 Primary central sleep apnea; R53.82 Chronic fatigue, unspecified; R53.81 Other malaise; D64.9 Anemia, unspecified
CPT/HCPCS: 95816

== ENCOUNTER → 2025-08-10 08:30 | Outpatient (BNV) | payer OTHER, SELFPAY | PROVIDERS: PCP Internal Medicine; Visit Provider Psychiatry & Neurology Neurology | DX: G47.33 Obstructive sleep apnea (adult) (pediatric) (principal) | CPT/HCPCS: 95816 ==

== ENCOUNTER → 2025-08-24 19:30 | Outpatient (REF) | payer OTHER, SELFPAY ==
--- OUTSIDE RECORDS SUMMARY | 2024-05-18 03:45 | XMS_ITS ---
Author Organization Bhargav Joe MD Address [address] [place], [place] [id number] Care Team Providers Care Fiberglasser Name Role Phone Bhargav Joe Primary Care Provider Results Component Value Reference Range Notes Complete Blood Count Auto Di ff Reviewed date:05/18/2024 12:45:17 PM Interpretation: Performing Lab:[facility], [address] [place] [phone] Notes/Report: White Blood Count 8.6 4.8-10.8 X10*3/uL [...] NRBC Abs Auto 0.000 0.0-0.012 X10*3/uL Comprehensive [place]. Panel Fa st Reviewed date:05/18/2024 04:35:51 PM Interpretation: Performing Lab:[facility], [address] [place] [phone] Notes/Report: Sodium 138 135-145 mmol/L Potassium 4.3 3.3-5.1 mmol/L Chloride 100 96-108 mmol/L Carbon Dioxide 28 22-29 mmol/L Anion Gap 14 12-20 Blood Urea Nitrogen 17 9-16 mg/dL Creatinine 0.79 0.5-1.4 mg/dL Estimated Glomerular Filt Rate > 60 NOTE: For -[place] individuals, multiply the result by 1.210. Chronic [...] Panel Reviewed date:05/18/2024 11:55:33 AM Interpretation: Performing Lab:[facility], [address] [place] [phone] Notes/Report: Triglycerides 266 <150 mg/dL Desirable Triglyceride: [...] (Free>4and<10) Reviewed date:05/18/2024 11:54:37 AM Interpretation: Performing Lab:[facility], [address] [place] [phone] Notes/Report: PSA,Total (Free>4and<10) 1.21 0.00-4.00 ng/mL A [...] Total Reviewed date:05/18/2024 11:55:20 AM Interpretation: Performing Lab:[facility], [address] [place] [phone] Notes/Report: Vitamin D 25-OH Total 57.3 >30 [...] t Reviewed date:05/18/2024 04:36:50 PM Interpretation: Performing Lab:[facility], [address] [place] [phone] Notes/Report: [id number] Urine, Clean Catch Color Urine Yellow Appearance Urine Clear PH 5.0 5.0-9.0 Glucose Urine UA Negative Negative mg/dL Urine Blood Negative Negative Specific [place] - Urine 1.020 1.005-1.025 Urine Protein Negative [...] Location Date Provider Diagnosis Bhargav Joe MD [address] [place] [address] [place] [phone] 05/18/2024 Bhargav Joe Blood tests for rout [...] Details Provider Name:Bhargav heart, 11/29/2025 03:00:00 PM, [address] [place] [address], [address] [place] [address], [phone], Provider Name:Bhargav heart, 05/23/2026 07:15:00 AM, [address] [place] [address], [address] [place] [address], [phone], Provider Name:Bhargav Stiles ier, 05/30/2026 02:30:00 PM, [address], [address], [place], [place], [phone], Progress Notes * Ty NICHOLSON MDOB:[birth year] (55 yo M)Acc No.[id number]:05/18/2024 Progress Note Patient: Ty ESCALANTE Provider: Any Joe MD :1970 A ge:53 Y S ex:Male Date:05/18/2024 Address:[address] [place] [address], [facility] Subjective: * Chief Complaints: * 1 . [...] - 05/18/2024 07:45 AM) L AB: Comprehensive [place]. Panel Fast (Collection Date & Time - [...] - 05/18/2024 07:45 AM) L AB: Comprehensive [place]. Panel Fast (Collection Date & Time - [...] 05/18/2024 Generated for Edouard vivar/Ramona/Shashank on: 1 09:46 PM EDT
--- OUTSIDE RECORDS SUMMARY | 2024-05-22 08:30 | XMS_ITS ---
Author Organization [facility] Address [address] [place] [address] Support Name Relationship Address Phone ELIANA LAO Emergency Contact [address] [place] [address] LATANYA LAO Guarantor Unknown [phone] Care Team Providers Care Pin Worker Name Role Phone Heath RAI, Bhargav Primary Care Provider Nazario Slaughter Unavailable [phone] Problems Problem Type SNOMED Code ICD Code Onset Dates Problem Status W/U Status Risk Notes Problem Diverticular disease of colon (692618017) Diverticulosis of large intestine without perforation or abscess without bleeding (K57.30) Active confirmed Encounters Encounter Location Date Provider Diagnosis [facility] Outpatient [address] [place] [phone] 05/22/2024 Nazario Reyna Colon cancer scree kartik [...] Notes * LATANYA LAODOB:1970 (55 yo M)Acc No.[id number]:05/22/2024 COLON WITH MAC Patient: LATANYA ESCALANTE Provider: Judy Reyna MD :1970 A ge:53 Y S ex:Male Date:05/22/2024 Address:[address] [place] [address] [facility] Pcp:Bhargav Joe MD Subjective: * Chief Complaints: * * Medical History: Objective: * Vitals: Assessment: * Assessment: 1. C olon cancer screening - Z12.11 (Primary) 2 . D iverticulosis of large intestine without perforation or abscess without bleeding - K57.30 3 . O ther hemorrhoids - K64.8 Plan: * Treatment: * Procedure Codes: 4 5378 DIAGNOSTIC COLONOSCOPY * * The named appointment provid er may or may not be the originator of this progress note, and it is not deemed complete until electronically signed by the appointment provider. Sign off status: Pending * Provider: Judy Reyna MD Date: 0 05/22/2024 Generated for Edouard vivar/Ramona/Babsitting on: 09:46 PM EDT
--- OUTSIDE RECORDS SUMMARY | 2024-05-22 12:00 | XMS_ITS ---
Author Organization Bhargav Joe MD Address [address] [place], [place] [phone] Care Team Providers Care Director Process Engineering Name Role Phone Bhargav Joe Primary Care [...] Problem Status W/U Status Risk Notes Problem [id number] JAYME (obstructive sleep apnea) (G47.33) Active confirmed Vital Signs Blood pressure systolic 116 mm Hg 05/22/20 24 Blood pressure diastolic 70 mm Hg 024 Height 73 in 05/22/2024 Weight 187 lbs 05/22/2024 BMI 24.67 kg/m2 05/22/2024 weight is down 19 pounds sin 05-20-23 Encounters Encounter Location Date Provider Diagnosis Bhargav Joe MD [address] [place] [phone] 05/22/2024 Bhargav Joe JAYME (obstructive sle ep apnea) G47.33 ; Annual physical exam Z00.00 ; Hypercholesterolemia E78.00 ; Vitamin D deficiency E55.9 ; Colon cancer screening Z12.11 and Depression screening Z13.31 Assessments Encounter Date Diagnosis (ICD Code) Assessment Notes Treatment Notes Treatment Clinical Notes Section Notes 05/22/2024 JAYME (obstructive sle ep apnea) (ICD-10 - G47.33) needs referral to sleep medicine at [facility] IS NOT ACCEPTINGNEW PATIENTS, THE [...] needs refe rral to sleep medicine at [facility] IS NOT ACCEPTINGNEW PATIENTS, THE [...] Reason: Provider Name:Bhargav heart, 11/29/2025 03:00:00 PM, [address] [place] [address], [address] [place] [address], [phone], Provider Name:Bhargav heart, 05/23/2026 07:15:00 AM, [address] [place] [address], Suite [facility], [place], [place], [phone], Provider Name:Bhargav heart, 05/30/2026 02:30:00 PM, [address] [place] [address], [address] [place] [address], [phone], Progress Notes * Ty NICHOLSON MDOB:[birth year] (53 yo M)Acc No.[id number]:05/22/2024 Progress Notes Patient: Ty Smith Provider: Any Joe MD :1970 A ge:53 Y S ex:Male Date:05/22/2024 Address:[address] [place] [address], [facility] Subjective: * Chief Complaints: * A NNUAL [...] mg/dL Urine Blood Negative Negative - Specific [place] - Urine 1.020 1.005-1.025 - Urine Protein [...] Auto 0.000 0.0-0.012 - X10*3/uL L ab:Comprehensive [place]. Panel Fast (Order Date - 05/18/2024) (Collection [...] Notes: needs referral to sleep medicine at [facility] IS NOT ACCEPTINGNEW PATIENTS, THE [...] 05/22/2024 Generated for Edouard vivar/Ramona/Shashank on: 1 09:46 PM EDT History and Physical Notes * HPI [...]
--- OUTSIDE RECORDS SUMMARY | 2024-10-03 11:16 | XMS_ITS ---
Author Organization Bhargav Joe MD Address [address] [place] [phone] Care Team Providers Care Bottler Name Role Phone Bhargav Joe Primary Care Provider [phone] Medications Medication SIG (Take, Route, Fr equency, Duration) Notes Start Date End Date Status valACYclovir HCl 1 GM 1 tablet Orally On ce a day for 90 days 05/18/2022 Active Encounters Encounter Location Date Provider Diagnosis Bhargav Joe MD 10 [facility] [address] [place] [phone] 10/03/2024 Bhargav Joe Plan Of Treatment Medication Medication Name Sig Start Date Stop Date Notes valACYclovir HCl 1 GM 1 tablet Orally On ce a day for 90 days 05/18/2022 Next Appt Details Provider Name:Bhargav heart, 11/29/2025 03:00:00 PM, [address] [place] [address], [address] [place] [address], [phone], Provider Name:Bhargav heart, 05/23/2026 07:15:00 AM, [address] [place] [address], [address], [phone], Provider Name:Bhargav heart, 05/30/2026 02:30:00 PM, [address] [place] [address], [address], [phone], Progress Notes * Ty NICHOLSON MDOB:[birth year] (54 yo M)Acc No.[id number]:10/03/2024 Patient: Ty Smith :1970 A ge:54 Y S ex:Male Address:[address] [place] [address], [place], [address] * Refills Refill valACYclovir HCl Tablet, 1 GM, Orally, 90, 1 tablet, Once a day, 90 days, Refills=3 * true * Date: Generated for Edouard vivar/Ramona/Babsitting on: 09:46 PM EDT
--- OUTSIDE RECORDS SUMMARY | 2025-03-27 10:37 | XMS_ITS ---
Author Organization Bhargav Joe MD Address [address] [place], [place] [phone] Care Team Providers Care Women'S Garment Fitter Name Role Phone Bhargav Joe Primary Care Provider REASON FOR VISIT RF Cialis Medications Medication SIG (Take, Route, Fr equency, Duration) Notes Start Date End Date Status Tadalafil 20 MG as directed Oral onc e a day as needed for 30 days 12/27/2018 Active Encounters Encounter Location Date Provider Diagnosis Bhargav Joe MD 10 [facility] [address] [place], [place] [phone] 03/27/2025 Bhargav Joe Plan Of Treatment Medication Medication Name Sig Start Date Stop Date Notes Tadalafil 20 MG as directed Oral onc e a day as needed for 30 days 12/27/2018 Next Appt Details Provider Name:Bhargav heart, 11/29/2025 03:00:00 PM, [address] [place] [address], Suite [facility], [place], [place], [phone], Provider Name:Bhargav heart, 05/23/2026 07:15:00 AM, [address] [place] [address], Suite [facility], [place], [place], [phone], Provider Name:Bhargav heart, 05/30/2026 02:30:00 PM, [address] [place] [address], Suite [facility], [place], [place], [phone], Progress Notes * Ty NICHOLSON MDOB:[birth year] (54 yo M)Acc No.[id number]:03/27/2025 Patient: Ty ESCALANTE :1970 A ge:54 Y S ex:Male Address:[address] [place] [address], [place], [address] * Refills Refill Tadalafil Tablet, 20 MG, Oral, 30, as directed, once a day as needed, 30 days, Refills=4 * true * Date: Generated for Edouard vivar/Ramona/Babsitting on: 09:46 PM EDT
--- OUTSIDE RECORDS SUMMARY | 2025-05-21 03:00 | XMS_ITS ---
Author Organization Bhargav Joe MD Address [address] [place], [place] [id number] Care Team Providers Care Lunch Wagon Operator Name Role Phone Bhargav Joe Primary Care Provider [phone] Results Component Value Reference Range Notes Complete Blood Count Auto Di ff Reviewed date:05/21/2025 12:41:55 PM Interpretation: Performing Lab:[facility], [address] [place] [phone] Notes/Report: White Blood Count 5.8 4.8-10.8 X10*3/uL [...] NRBC Abs Auto 0.000 0.0-0.012 X10*3/uL Comprehensive [place]. Panel Fa st Reviewed date:05/21/2025 12:42:12 PM Interpretation: Performing Lab:[address] [address] Notes/Report: Sodium 139 135-145 mmol/L Potassium 4.3 [...] Sensitivity Reviewed date:05/25/2025 09:24:04 PM Interpretation: Performing Lab:[address] [phone] Notes/Report: CRP High Sensitivity 0.4 Reference Range [...] for Disease Control and Prevention and the [place] Heart Association. Circulation 2003; 107(3): 499-511. THIS TEST WAS PERFORMED AT: [facility] [address] [place] [phone] LAST BOLES MD Lipid Panel Reviewed date:05/21/2025 12:38:41 PM Interpretation: Performing Lab:[address] [phone] Notes/Report: Triglycerides 66 <150 mg/dL Desirable Triglyceride: [...] (Free>4and<10) Reviewed date:05/21/2025 12:37:57 PM Interpretation: Performing Lab:[facility], [address] [place] [phone] Notes/Report: PSA,Total (Free>4and<10) 0.79 0.00-4.00 ng/mL A [...] Total Reviewed date:05/21/2025 12:39:08 PM Interpretation: Performing Lab:[address] [phone] Notes/Report: Vitamin D 25-OH Total 78.7 >30 [...] Free/Total Reviewed date:05/25/2025 09:30:36 PM Interpretation: Performing Lab:[address] [phone] Notes/Report: Testosterone, Total 204 858-5093 ng/dL For additional information, please refer to http://education.Booxmedia.BCM Solutions/faq/ TotalTestosteroneLCMSMSFAQ1 65 (This link is being provided for informational/ educational purposes only.) This test was developed and its analytical performance characteristics have been determined by [facility] [place], [place]. It has not been cleared or approved by the U.S. Food and Drug Administration. This assay has been validated pursuant to the CLIA regulations and is used for clinical purposes. Testosterone, Free 71.1 35.0-155.0 pg/mL This test was developed and its analytical performance characteristics have been determined by [facility] [place], [place]. It has not been cleared or approved by the U.S. Food and Drug Administration. This assay has been validated pursuant to the CLIA regulations and is used for clinical purposes. THIS TEST WAS PERFORMED AT: [facility] [address] CASIMIRO LAYNE MD,PHD UA ClnCatch+Micro w/rflx Cul t Reviewed date:05/21/2025 12:40:58 PM Interpretation: Performing Lab:[facility], [address] [place] [phone] Notes/Report: [id number] 0700 Urine, Clean Catch Color Urine Yellow Appearance Urine Clear PH 5.5 5.0-9.0 Glucose Urine UA Negative Negative mg/dL Urine Blood Negative Negative Specific [place] - Urine 1.020 1.005-1.025 Urine Protein Negative [...] Location Date Provider Diagnosis Bhargav Joe MD [address] [place] [phone] 05/21/2025 Bhargav Joe Blood tests for rout [...] Details Provider Name:Bhargav heart, 11/29/2025 03:00:00 PM, [address] [place] [address], [address], [phone], Provider Name:Bhargav heart, 05/23/2026 07:15:00 AM, [address] [place] [address], [phone], Provider Name:Bhargav heart, 05/30/2026 02:30:00 PM, [address] [place] [address], [address], [phone], Progress Notes * Ty NICHOLSON MDOB:[birth year] (55 yo M)Acc No.[id number]:05/21/2025 Progress Note Patient: Gisselle SANTINOGiuseppeTy Provider: Any Joe MD :1970 A ge:54 Y S ex:Male Date:05/21/2025 Address:[address] [place] [address], [id number] Subjective: * Chief Complaints: * 1 . [...] - 05/21/2025 07:00 AM) L AB: Comprehensive [place]. Panel Fast (Collection Date & Time - [...] - 05/21/2025 07:00 AM) L AB: Comprehensive [place]. Panel Fast (Collection Date & Time - [...] 05/21/2025 Generated for Edouard vivar/Ramona/Babsitting on: 1 09:46 PM EDT
--- OUTSIDE RECORDS SUMMARY | 2025-05-28 06:30 | XMS_ITS ---
Author Organization Bhargav Joe MD Address [address] [place], [place] [phone] Care Team Providers Care High School Chemistry Teacher Name Role Phone Bhargav Joe Primary Care Provider Allergies No Known Allergies Reason For Referral [...] kg/m2 05/28/2025 weight is down 7 pounds [facility] e 05-22-24 Encounters Encounter Location Date Provider Diagnosis Bhargav Joe MD [address] [place], [place] [phone] 05/28/2025 Bhargav Joe Annual physical exam Z00.00 [...] cpap needs referral to dr lim at [facility] Plan Of Treatment Treatment Notes Assessment Notes Annual physical exam Labs reviewed and d iscussed with patient Hypercholesterolemia is coming down on d iet JAYME (obstructive sleep apnea) is unable to use cpap needs referral to dr lim at [facility] Referrals Referral Date Details 05/28/2025 05/28/2025, JAYMEBuddy i Next Appt Details Follow Up: 6 Months, Reason: Provider Name:Bhargav heart, 11/29/2025 03:00:00 PM, [address], [address], [place], [place], [phone], Provider Name:Bhargav Stiles ier, 05/23/2026 07:15:00 AM, [address], [address], [place], [phone], Provider Name:Bhargav Sitles ier, 05/30/2026 02:30:00 PM, [address], [address], [place], [phone], Progress Notes * Ty NICHOLSON MDOB:[birth year] (54 yo M)Acc No.[id number]:05/28/2025 Progress Notes Patient: Gisselle MASTy Provider: Any Joe MD :1970 A ge:54 Y S ex:Male Date:05/28/2025 Address:[address] [place] [address], [id number] Subjective: * Chief Complaints: * A NNUAL [...] started going to gym and has a associate trainer twice a week. panic attacks went [...] mg/dL Urine Blood Negative Negative - Specific [place] - Urine 1.020 1.005-1.025 - Urine Protein [...] Auto 0.000 0.0-0.012 - X10*3/uL L ab:Comprehensive [place]. Panel Fast (Order Date - 05/21/2025) (Collection [...] cpap needs referral to dr lim at [facility] Referral To:Sammie Troy Neurology Reason:JAYME * Procedure Codes: * Follow Up: 6 Months * * Sign off status: Completed true * Provider: Any Joe MD Date: 0 05/28/2025 Generated for Edouard vivar/Ramona/Rudiransmitting on: 1 09:45 PM EDT History and Physical Notes * [...] started going to gym and has a associate trainer twice a week. panic attacks went [...]
--- OUTSIDE RECORDS SUMMARY | 2025-07-30 10:14 | XMS_ITS ---
Author Organization Bhargav Joe MD Address [address] [place] [phone] Care Team Providers Care Keno Manager Name Role Phone Bhargav Joe Primary Care Provider [phone] Reason For Referral Reason erectile dysfunstion Diagnosis 1 Erectile dysfunction , unspecified erectile dysfunction type (N52.9) Referral Organization Bhargav Jeo MD Referring Provider First Name Bhargav Referring [...] Location Date Provider Diagnosis Bhargav Joe MD [address] [place] [address] [place] [phone] 07/30/2025 Bhargav Joe Plan Of Treatment Referrals Referral Date Details 08/02/2025 08/02/2025, erectile dysfunstion, Trey Gillette Next Appt Details Provider Name:Bhargav heart, 11/29/2025 03:00:00 PM, [address] [place] [address], [address] [place] [address], [phone], Provider Name:Bhargav heart, 05/23/2026 07:15:00 AM, [address] [place] [address], [address], [phone], Provider Name:Bhargav Stiles ier, 05/30/2026 02:30:00 PM, [address], [address], [place], [phone], Progress Notes * Ty NICHOLSON MDOB:[birth year] (55 yo M)Acc No.[id number]:07/30/2025 Patient: Gisselle DEGiuseppeTy :1970 A ge:55 Y S ex:Male Address:[address] [place] [address], [facility], [place], [address] Subjective: * Chief Complaints: * U rologist referral * Medical History: * Surgical History: * Hospitalization/Major Diagno stic Procedure: * Medications: Objective: * Vitals: * Physical Examination: Assessment: Plan: * Treatment: * Procedure Codes: * true * Date: Generated for Reginaldoi cb/Ramona/eTransmitting on: 09:45 PM EDT Consultation Request Notes Referral Date Referring Provider Referred Provider Not es 08/02/2025 Bhargav Joe Alexander erectil e dysfunstion
--- OUTSIDE RECORDS SUMMARY | 2025-08-24 21:45 | XMS_ITS | Data Portability ---
Author Organization [facility], [facility] Address [address] [place] [address] Assessment Encounter Date Assessment Date Assessment LastModified [...] plaques. He will use TTylenol for pain. [employer] speech recognition exercise equipment repair technician software was used to create portions of [...] reveals his incisions to be Healing well. Maitland are removed and Steri-Strips were applied. There [...] answered. He may use Tylenol for pain. [employer] speech recognition exercise equipment repair technician software was used to create portions of [...] with his result. He went to the black top paver operator this week and they noted a scab [...] His other hardware does not appear infected. [employer] speech recognition exercise equipment repair technician software was used to create portions of [...] ELBOW 024 05/19/[address] [facility] [address] [facility], [address], [place], [address], 4 09:01:56 XR, elbow, 3 or more view - 308 3V R ELBOW 024 02/17/[address] [facility] Office, [address], [address], [place], [address], 4 06:56:45 XR, elbow, 3 or more view - Room 309- 3V R Elbow- 1st PO - Pt in Room 024 01/17/20 [facility], [address], [place], [address], 4 15:57:20 Medication Orders None recorde d. Patient TargetsNo targets recorded. Patient Instructions Encounter Date Encounter Id Patient Instructions Last Modified By Organization Details Last Modified Time 01/17/2024 [id number] work status report* - PT MAY RETURN [...] a4ajBk vP9nXo QUaueC m3YtLR FvZlgJ JJ8mAn HZtai3 2l5886 AC0KpY nqHVqb eUC8mr 84%3D INTERFACE [facility] [address], [place], [address], 05/19/2024 09:30:48 05/19/20 24 05/19/2024 XR, elbow , 3 or more view http:/ [email or web address] ?Encry pted=s hAaTro YD8dLq bEUv6g %2BXZw aYqtaq 0bqfl% 2Fg9IQ a4ajBk vP9nXo QUaueC m3YtLR FvZlgJ JJ8mAn HZtai3 3a1113 AC0KpY nqHVqb eUC8mr 84%3D INTERFACE [facility] [address], [place], [address], 05/19/2024 09:30:50 06/30/20 24 12/07/2023 imagi ng/di [...] Elbow, 3 Or More View : [email or web address]? Encrypted=gqJyTumRI7jZdtG Uv6g%7SMZbxQnsuj8knir%2Fg 0ICr1yyLrgY9uCjKGowjQu6Ej YSJfVcpMRU5iZxCGdbm31z868 7LM9JqWffBMwdmNN1di60%3D Not Available [facility] 05/19/2024 09:3 0:49 Xr, Elbow, 3 Or More View : [email or web address] Encrypted=cuFqWogBC1iQjeX Uv6g%8CFDhtWwwvh6jzgd%2Fg 2FBj0huTlkJ2fUwZKlkcMw8Sm TTKzLjjLAC8hGaHUjhc14c468 8GH7JoAymJZesiHE3df62%3D Not Available [facility] 05/19/2024 09:3 0:51 Problems Name Problem SNOMED Code Status Onset Date Resolution Date Notes Provider Name and Address Organization Details Recorded Time Pain of right elbow joint 8973372870389 9109 Active 2023 OSMANISARAH cunningham [place] - [facility] 10:29:00 Closed fracture distal humerus, bicondylar (T-Y fracture) 222656174 Active 2023 Jadon Bray MD [address], [place], [place], [address], [facility] - [facility] 4 13:12:16 Pain associated with internal prosthetic device 326724894 Active 2023 Jadon Bray MD [address], [place], [place], [address], [facility] - [facility] 4 13:13:15 Problem Notes [...] Updated DateTime 01/17/2024 190.5 cm 25.7 kg/m2 60412.03 g OSMNAI WELLS [facility] 01/17/2024 10:21:44 Date Recorded Body height Provider Name an d Address Organization Details Last Updated DateTime 02/17/2024 190.5 cm OSMANI WELLS [facility] 02/17/2024 11:10:48 Date Recorded Body height Body mass index (BMI) Body weight Provider Name and Address Organization Details Last Updated DateTime 05/19/2024 190.5 cm 25.6 kg/m2 32337.44 g OSMANI WELLS [facility] 05/19/2024 09:20:58 Social History None recorded. Functional Status None recorded. Mental Status None recorded. Family History Nothing Reported. Medical History No medical history recorded. Past Encounters Encounter ID Performer Location Encounter Start Date Encounter Closed Date Diagnosis/Indication Diagnosis SNOMED-CT Code Diagnosis ICD10 Code Diagnosis IMO Codes Diagnosis Note [id number] MD Mauri Barrett [address] [facility] [address] [place] [address] 01/17/2024 10:04:13 02/02/2024 15:57:20 Pain of right elbow joint 3105747894 8544099 M25.521 Closed fra cture distal humerus, bicondylar (T-Y fracture) 252424539 S42.491D Pain assoc iated with internal prosthetic device 029335884 T84.84XD [id number] MD Mauri Barrett [address] [facility] [address] [place] [address] 02/17/2024 10:30:13 03/10/2024 06:56:45 Pain of right elbow joint 4867690159 7126878 M25.521 Closed fra cture distal humerus, bicondylar (T-Y fracture) 368299627 S42.491D [id number] MD Mauri Barrett 3rd floor [address] [place] [address] 05/19/2024 09:13:01 06/19/2024 09:01:55 Pain of right elbow joint 3776130730 1088803 M25.521 Closed fra cture distal humerus, bicondylar (T-Y fracture) 693529284 S42.491D Health Concerns Section Related Observation LastModified by Organization Detai ls LastModified Time None Recorded Concern Status LastModified by Organization Details LastModified Time None Recorded Advance Directives Directive None Recorded Payers Insurance Date Sequence Insurance Name Policy Number Policy [place] Covered Member ID [place] Member ID Guarantor Name 06/26/2024 1 [facility] [id number] Ty Nicholson [id number] Ty Nicholson
--- OUTSIDE RECORDS SUMMARY | 2025-08-24 21:45 | XMS_ITS | Patient Health Record ---
Author Organization [facility] Address [address] [place] [address] Support Name Relationship Address Phone ELIANA LAO Emergency Contact [address] [place] [address] LATANYA LAO Guarantor Unknown [phone] Care Team Providers Care Bisque Grader Name Role Phone Heath RAI, Bhargav Primary Care Provider Nazario Slaughter Unavailable [phone] Allergies No Known Allergies Reason For Referral No Information Medications Medication SIG (Take, Route, Frequency, Duration) Notes Start Date End Date Status Zoryve 0.3 % Apply to the psoriasis areas once daily External; Duration: 30 L400,Unavailabl e Active valACYclovir HCl 1 GM Oral; Duration: 30 Active Aspirin 81 81 MG 1 tablet Orally Once a day; Duration: 30 day(s) Active Social History Tobacco Use: [...] Status Risk Notes Problem Colon cancer screening (012506149) Colon cancer screening (Z12.11) Active confirmed Problem Pre-procedure evaluation check (703184665) Encounter for other preprocedural examination (Z01.818) Active confirmed Problem Diverticular disease of colon (633417593) Diverticulosis of large intestine without perforation or abscess without bleeding (K57.30) Active confirmed Plan Of Treatment Future Test Test Name Order Date COLONOSCOPY 02/29/2024 Insurance Providers Payer Name Payer Address Payer Phone Subscriber Number Group Number Insured Name Patient Relationship to Insured Coverage Start Date Coverage End Date [facility] [address] [facility] [place] [address] [id number] LATANYA LAO Self - patient is the insured Medical (General) History Medical History History ICD Code Denies IA,DM,CVA,Lung disease,renal dise ase Psoriasis Surgical History Surgery Date(Month/Year) Elbow right 2023 Knee right 2022 Heel right 2007
--- OUTSIDE RECORDS SUMMARY | 2025-08-24 21:45 | XMS_ITS | Clinical Summary ---
Author Organization [facility] Address [address] [facility] [place] [address] Phone Care Team Providers Care Electrical Estimator Name Role Phone Bhargav Joe MD Primary [...] 2016 ZOSTER VACCINES (1 of 2) 2021 INFLUENZA VACCINE (#1) 2025 COVID-19 VACCINE (2 - 2024-2 6 season) 2025 02/09/2021, 02/09/2021 SCREENING FOR DIABETES 03/12/2026 03/12/2023 RSV VACCINE (1 - 1-dose 75+ series) 2046 HEPATITIS A VACCINES Aged Out No long [...] this topic Medical Devices Implanted Type Area Public Records Researcher Device Identifier Shelf Expiration Date Model / Serial / Lot Screw Bone 60x3.5mm Compression Ss Locking Self Tapping Full Thread T15 Stardrive Recess - [id number] Implanted:Qty: 2 on 03/15/2023 by Nazario Son MD at [facility] Right: Knee [employer] 212.124 / / Screw Bone 40x3.5mm Compression Ss Locking Self Tapping Full Thread T15 Stardrive Recess - [id number] Implanted:Qty: 1 on 03/15/2023 by Nazario Son MD at [facility] Right: Knee [employer] 212.117 / / Screw Bone 50x3.5mm Compression Ss Locking Self Tapping Full Thread T15 Stardrive Recess - [id number] Implanted:Qty: 1 on 03/15/2023 by Nazario Son MD at [facility] Right: Knee [employer] 212.121 / / Screw Bone 3.5x40mm Cortex Self Tapping Fully Threaded Hex Head Ss - [id number] Implanted:Qty: 1 on 03/15/2023 by Nazario Son MD at [facility] [employer] Right: Knee [employer] 204.840 / / Screw Bone 3.5x38mm Cortex Self Tapping Fully Threaded Hex Head Ss - [id number] Implanted:Qty: 1 on 03/15/2023 by Nazario Son MD at [facility] [employer] Right: Knee [employer] 204.838 / / Screw Screw Right: Heel Screw Screw Right: Elbow Graft Bone 25v08fl Freeze Dried Readi Cancellous Implantable - [id number] Implanted:Qty: 1 on 03/15/2023 by Nazario Son MD at [facility] Right: Knee [employer] 03/02/2026 CANBLOCK / / Tibia Plate 3.5x87mm Sm 4 Hole L Lcp Ss Variable Angle Bend Imal Right - [id number] Implanted:Qty: 1 on 03/15/2023 by Nazario Son MD at [facility] Right: Knee [employer] 02.127.210 / / Screw Self-Tapping 3.5 Va Locking Sd/70 - [id number] Implanted:Qty: 1 on 03/15/2023 by Nazario Son MD at [facility] Right: Knee [employer] 02.127.170 / / Screw Self-Tapping 3.5 Va Locking Sd/65 - [id number] Implanted:Qty: 1 on 03/15/2023 by Nazario Son MD at [facility] Right: Knee [employer] 02.127.165 / / Screw Self-Tapping 3.5 Va Locking Sd/80 - [id number] Implanted:Qty: 1 on 03/15/2023 by Nazario Son MD at [facility] Right: Knee [employer] 02.127.180 / / Insurance HMO [address] [place] [address] [address] [place] [address] [place] [address] HMO [facility] HMO Advance Directives For more information, please contact: [phone] (9AM - 5PM [facility], Wednesday-Wednesday) * Full Code (Latest Code Status on File) Date Activated Date Inactivated Comments 03/15/2023 6:04 AM Question Answer Comments Code Status Confirmed With: Patient Care Teams Electrical Estimator Relationship Specialty Start Date End Date Bhargav Joe MD [address] [place] [address] PCP - General Internal Medicine 09/20/20 Additional Source Comments The information contained in this document represents components of the legal health record. It is not the complete legal health record.[facility]
--- OUTSIDE RECORDS SUMMARY | 2025-08-24 21:45 | XMS_ITS | Encounter Summary ---
Author Organization [facility] Address [address] [place] [address] Phone Care Team Providers Care Veterinary Surgeon Name Role Phone Bhargav Joe MD Primary Care Provider Dawit [place] MD Unavailable [phone] Encounter Details Date Type Department Care Team (Late st Contact Info) Description 03/08/2023 Procedure Pass [facility], Ct Scan - [facility] [address] [place] [address] Social History Tobacco Use Types Packs/Day Years [...] 8:03 AM EDT Taylor Mariscal RN * [place] Suicide Severity Rating Scale (Screener/Recent Self-Report) Question [...] on filedocumented in this encounter Care Teams Veterinary Surgeon Relationship Specialty Start Date End Date Bhargav Jeo MD [address] [place] [address] Dr [place] [address] [place] [address] PCP - General Internal Medicine 09/20/20 Dawit [place] MD [address] [place] [address], [address] [place] [address] [email or web address] Insurance Assigned Provider 06/06/23 07/10/23 documented as of this encounter Additional Source Comments The information contained in this document represents components of the legal health record. It is not the complete legal health record.[facility]
--- OUTSIDE RECORDS SUMMARY | 2025-08-24 21:45 | XMS_ITS | Encounter Summary ---
Author Organization [facility] Address [address] [place] [address] Phone Care Team Providers Care Pigment Weigher Name Role Phone Bhargav Joe MD Primary Care Provider Dawit [place] MD Unavailable Encounter Details Date Type Department Care Team (Late st Contact Info) Description 03/08/2023 Procedure Pass [facility], Ct Scan - [facility] [address] [place] [address] Social History Tobacco Use Types Packs/Day Years [...] 8:03 AM EDT Taylor Mariscal RN * [place] Suicide Severity Rating Scale (Screener/Recent Self-Report) Question [...] on filedocumented in this encounter Care Teams Pigment Weigher Relationship Specialty Start Date End Date Bhargav Joe MD [address] [place] [address] Dr [place] [address] [place] [address] PCP - General Internal Medicine 09/20/20 Dawit [place] MD [address] [place] [address], [address] [place] [address] [email or web address] Insurance Assigned Provider 06/06/23 07/10/23 documented as of this encounter Additional Source Comments The information contained in this document represents components of the legal health record. It is not the complete legal health record.[facility]
--- OUTSIDE RECORDS SUMMARY | 2025-08-24 21:46 | XMS_ITS | Encounter Summary ---
Author Organization [facility] Address [address] [place] [address] Phone Care Team Providers Care School Crossing Guard Name Role Phone Bhargav Joe MD Primary Care Provider Dawit [place] MD Unavailable [phone] Encounter Details Date Type Department Care Team ([facility] st Contact Info) Description 03/15/2023 Procedure Pass [place] Admitting Dept - Virtual Department [address] [place] [address] Social History Tobacco Use Types Packs/Day Years [...] on filedocumented in this encounter Care Teams School Crossing Guard Relationship Specialty Start Date End Date Bhargav Joe MD [address] [place] [address] [place] [address] PCP - General Internal Medicine 09/20/20 Dawit [place] MD [address] [place] [address], [address] [place] [address] [email or web address] Insurance Assigned Provider 06/06/23 07/10/23 documented as of this encounter Additional Source Comments The information contained in this document represents components of the legal health record. It is not the complete legal health record.[facility]
--- OUTSIDE RECORDS SUMMARY | 2025-08-24 21:46 | XMS_ITS | Patient Health Record ---
Author Organization Bhargav Joe MD Address [address] [place], [place] [address] Care Team Providers Care Oven Laborer Name Role Phone Bhargav Joe Primary Care Provider Allergies No Known Allergies Results Component Value Reference Range Notes Complete Blood Count Auto Di ff Reviewed date:05/21/2025 12:41:55 PM Interpretation: Performing Lab:[facility], [address] [place] [phone] Notes/Report: White Blood Count 5.8 4.8-10.8 X10*3/uL [...] NRBC Abs Auto 0.000 0.0-0.012 X10*3/uL Comprehensive Staples. Panel Fa st Reviewed date:05/21/2025 12:42:12 PM Interpretation: Performing Lab:[address] [address] Notes/Report: Sodium 139 135-145 mmol/L Potassium 4.3 [...] Sensitivity Reviewed date:05/25/2025 09:24:04 PM Interpretation: Performing Lab:[address] [address] Notes/Report: CRP High Sensitivity 0.4 Reference Range [...] may be associated with infection and inflammation. Aguila TA, Gerald GA, Trey RW, et al. Markers of inflammation and cardiovascular disease: application to clinical and public health practice: A statement for healthcare professionals from the Centers for Disease Control and Prevention and the [place] [employer]. Circulation 2003; 107(3): 499-511. THIS TEST WAS PERFORMED AT: [facility] [address] [place] [phone] LAST BOLES MD Lipid Panel Reviewed date:05/21/2025 12:38:41 PM Interpretation: Performing Lab:[address] [address] Notes/Report: Triglycerides 66 <150 mg/dL Desirable Triglyceride: [...] (Free>4and<10) Reviewed date:05/21/2025 12:37:57 PM Interpretation: Performing Lab:[facility], [address] [place] [phone] Notes/Report: PSA,Total (Free>4and<10) 0.79 0.00-4.00 ng/mL A [...] Total Reviewed date:05/21/2025 12:39:08 PM Interpretation: Performing Lab:[address] [address] Notes/Report: Vitamin D 25-OH Total 78.7 >30 [...] Free/Total Reviewed date:05/25/2025 09:30:36 PM Interpretation: Performing Lab:[address] [address] Notes/Report: Testosterone, Total 628 059-0762 ng/dL For additional information, please refer to http://education.Enigmedia.Hexoskin ([employer])/faq/ TotalTestosteroneLCMSMSFAQ1 65 (This link is being provided for informational/ educational purposes only.) This test was developed and its analytical performance characteristics have been determined by ? [place]. It has not been cleared or approved by the U.S. Food and Drug Administration. This assay has been validated pursuant to the CLIA regulations and is used for clinical purposes. Testosterone, Free 71.1 35.0-155.0 pg/mL This test was developed and its analytical performance characteristics have been determined by ? [place]. It has not been cleared or approved by the U.S. Food and Drug Administration. This assay has been validated pursuant to the CLIA regulations and is used for clinical purposes. THIS TEST WAS PERFORMED AT: [facility] [address] CASIMIRO LAYNE MD,PHD UA [employer] w/rflx Cul t Reviewed date:05/21/2025 12:40:58 PM Interpretation: Performing Lab:[facility], [address] [place] [phone] Notes/Report: [id number] 0700 Urine, Clean Catch Color Urine Yellow Appearance Urine Clear PH 5.5 5.0-9.0 Glucose Urine UA Negative Negative mg/dL Urine Blood Negative Negative Specific [place] - Urine 1.020 1.005-1.025 Urine Protein Negative Neg-Trace mg/dL Urine Ketones Negative Negative mg/dL Nitrite Urine Negative Negative Leukocyte Esterase Urine Negative Negative RBC Urine 0-2 0-2 /HPF WBC Urine 0-5 0-5 /HPF Squamous Epithelial Cell Urine 0-2 0-2 /HPF Bacteria Urine None Seen None Seen Hyaline Casts Urine 0-2 0-2 /LPF Hold Lav - Possible Hematolo gy Reviewed date:05/21/2025 12:37:49 PM Interpretation: Performing Lab:[facility], [address] [place] [phone] Notes/Report: Hold Lav - Possible Hematology SEE NOTE Specimen will be held untested for 8 hours. Call Hematology if testing is desired. Reason For Referral Reason JAYME Diagnosis 1 [...] 06/15/2025 03:16:40 PM > referral info faxed, LauraЕленаBenítez Melody A 06/28/2025 03:25:34 PM >APPT SCHEDULEDFOR 07/04/25 @ 9AM, PATIENT AWARE Referral Priority Routine Referral Appointment Date 07/04/2025 Reason erectile dysfunstion Diagnosis 1 Erectile dysfunction [...] Referral Priority Routine Referral Appointment Date 10/23/2025 Medications Medication SIG (Take, Route, Frequency, Duration) [...] nts Covid Vaccine Unknown 02/09/2021 Administered Lambert Verdin Fluarix Quadrivalent Unknown 11/19/2017 Refused Fluarix Quadrivalent [...] Problem Status W/U Status Risk Notes Problem 83897441 Vitamin D defici ency (E55.9) Active confirmed Problem 942631324 Erectile dysfunc tion due to diseases classified elsewhere (N52.1) Active confirmed Problem 0955133 Psoriasis (L40.9) Active confirmed Problem 02525201 Obstructive slee p apnea syndrome (G47.33) Active confirmed Problem 016729504 Erectile dysfunc tion, unspecified erectile dysfunction type (N52.9) Active confirmed Problem 352012698 Cervical disc di sease (M50.90) Active confirmed Problem 44009975 Hypercholesterol emia (E78.00) Active confirmed Problem 94490784 JAYME (obstructive sleep apnea) (G47.33) Active confirmed [...] Bhargav Joe MD [address] [place] [id number] 05/21/2025 Bhargav Joe Blood tests for rout ine general physical examination Z00.00 ; Hypercholesterolemia E78.00 ; Vitamin D deficiency E55.9 and Erectile dysfunction due to diseases classified elsewhere N52.1 Bhargav Joe MD [address] [place] [id number] 05/28/2025 Bhargav Joe Annual physical exam Z00.00 ; Hypercholesterolemia E78.00 and JAYME (obstructive sleep apnea) G47.33 Bhargav Joe MD [address] [place] [id number] 10/03/2024 Bhargav Joe MD [address] [place] [address] [address] [place] [id number] 03/27/2025 Bhargav Joe MD [address] [place] [address] [address] [place] [id number] 07/30/2025 Bhargav Joe Assessments Encounter Date Diagnosis (ICD [...] cpap [place] [facility] [place]/21/2025 Erectile dysfunction due to diseases classified elsewhere (ICD-10 - N52.1) Plan Of Treatment Pending Test Test Name Order Date MRI CERVICAL SPINE NO CONTRAST 8 Next Appt Details Provider Name:Bhargav heart, 11/29/2025 03:00:00 PM, [address] [place] [address], [address], [phone], Provider Name:Bhargav heart, 05/23/2026 07:15:00 AM, [address] [place] [address], [address], [phone], Provider Name:Bhargav heart, 05/30/2026 02:30:00 PM, [address] [place] [address], [address], [phone], Insurance Providers Payer Name Payer Address Payer Phone Subscriber Number Group Number Insured Name Patient Relationship to Insured Coverage Start Date Coverage End Date [facility] [address] [facility] [place] [phone] [id number] Ty Nicholson Self - patient is the insured Medical (General) History Medical History History ICD Code colonoscopy 2023 repeat in 10 years colonoscopy repeat 10y
--- OUTSIDE RECORDS SUMMARY | 2025-08-24 21:47 | XMS_ITS | Clinical Summary ---
Author Organization [facility] Address [address] [place] [address] Care Team Providers Care Core Drill Operator Helper Name Role Phone Unavailable Primary Care Provider Unavailabl e Encounters Date Type Department Care Team Description 07/09/2025 Transcribe Orders [facility] [place] [address] [place] [address] Dawit Andre MD Primary sleep [...] COVID-19 Vaccine (1 - 2023-25 season) 2025 RSV Vaccine 50 years and old er and Patients (1 - 1-dose 75+ series) 2046 Insurance [facility]
--- OUTSIDE RECORDS SUMMARY | 2025-08-24 21:47 | XMS_ITS | Encounter Summary ---
Author Organization [facility] Address [address] [place] [address] Phone Care Team Providers Care Venetian Blind Maker Name Role Phone Bhargav Joe MD Primary Care Provider Dawit Merritt MD Unavailable [phone] Encounter Details Date Type Department Care Team (Late st Contact Info) Description 09/20/2020 Procedure Pass [facility], Ct Scan - [address] [address] Social History Tobacco Use Types Packs/Day Years [...] on filedocumented in this encounter Care Teams Venetian Blind Maker Relationship Specialty Start Date End Date Bhargav Joe MD [address] [place] [address] [place] [address] PCP - General Internal Medicine 09/20/20 Dawit Merritt MD [address] [facility] [place] [address] [email or web address] Insurance Assigned Provider 06/06/23 07/10/23 documented as of this encounter Additional Source Comments The information contained in this document represents components of the legal health record. It is not the complete legal health record.[facility]
== END ==
LOC: HO.SL 19:30
PROVIDERS: PCP Internal Medicine; Visit Provider Physician Assistant Medical
DX: G47.19 Other hypersomnia (principal); G47.33 Obstructive sleep apnea (adult) (pediatric)
CPT/HCPCS: 95810

== ENCOUNTER → 2025-08-24 21:40 | Outpatient (BNV) | payer OTHER, SELFPAY | PROVIDERS: PCP Internal Medicine; Visit Provider Internal Medicine | DX: G47.33 Obstructive sleep apnea (adult) (pediatric) (principal) | CPT/HCPCS: 95810 ==

== ENCOUNTER 2025-10-23 10:24 | Outpatient (AMB) | payer OTHER, SELFPAY ==
--- OUTSIDE RECORDS SUMMARY | 2024-05-18 02:45 | XMS_ITS ---
Author Organization Bhargav Joe MD Address [address] [place], [place] [id number] Care Team Providers Care Parachute Inspector Name Role Phone Bhargav Joe Primary Care Provider [phone] Results Component Value Reference Range Notes Complete Blood Count Auto Di ff Reviewed date:05/18/2024 12:45:17 PM Interpretation: Performing Lab:[facility], [address] [place] [phone] Notes/Report: White Blood Count 8.6 4.8-10.8 X10*3/uL Red Blood Count 4.82 4.60-5.80 X10*6/uL Hemoglobin 14.1 14.0-18.0 g/dl Hematocrit 44.2 42.0-52.0 % Mean Corpuscular Volume 91.7 80.0-98.0 fL Mean Corpuscular Hemoglobin 29.3 27.0-33.0 pg Mean Corpuscular HGB Conc 31.9 31.0-36.0 g/dl Red Cell Distribution Width 15.0 11.0-16.0 % Platelet Count 515 160-400 X10*3/uL Mean Platelet Volume 10.3 9.4-12.4 fL Neutrophils Percent Auto 60.0 45-73 % Imm Gran Pct Auto 1.0 0.0-0.4 % Lymphocytes Percent Auto 27.3 20-40 % Monocytes Percent Auto 9.6 2-11 % Eosinophils Percent Auto 1.3 0-4 % Basophils Percent Auto 0.8 0-2 % NRBC Pct Auto 0.0 0.0-0.2 /100WBC Neutrophils Absolute Auto 5.2 2.0-8.3 x10*3/u L Imm Gran Abs Auto 0.09 0.00-0.03 X10*3/uL Lymphocytes Absolute Auto 2.4 1.2-4.9 X10*3/u L Monocytes Absolute Auto 0.8 0.1-1.2 X10*3/uL Eosinophils Absolute Auto 0.1 0.0-0.4 X10*3/u L Basophils Absolute Auto 0.1 0.0-0.2 X10*3/uL NRBC Abs Auto 0.000 0.0-0.012 X10*3/uL Comprehensive [place]. Panel Fa st Reviewed date:05/18/2024 04:35:51 PM Interpretation: Performing Lab:[facility], [address] [place] [phone] Notes/Report: Sodium 138 135-145 mmol/L Potassium 4.3 3.3-5.1 mmol/L Chloride 100 96-108 mmol/L Carbon Dioxide 28 22-29 mmol/L Anion Gap 14 12-20 Blood Urea Nitrogen 17 9-16 mg/dL Creatinine 0.79 0.5-1.4 mg/dL Estimated Glomerular Filt Rate > 60 NOTE: For -Citizen Of [place] individuals, multiply the result by 1.210. Chronic Kidney Disease: Estimated GFR < 60 mL/min/1.73m2 Severe Kidney Disease: Estimated GFR < 15 mL/min/1.73m2 Glucose Fasting 109 60-99 mg/dL A fasting glucose from 100-125 mg/dl is considered impaired (pre-diabetes). Calcium 9.6 8.4-10.2 mg/dL Bilirubin Total 0.3 0.0-1.0 mg/dL Aspartate Amino Transferase 23 5-37 U/L Alanine Aminotransferase 35 0-40 U/L Total Protein 7.8 6.5-8.0 g/dL Albumin Level 4.1 3.5-5.0 g/dL Alkaline Phosphatase 75 39-117 U/L Lipid Panel Reviewed date:05/18/2024 11:55:33 AM Interpretation: Performing Lab:[facility], [address] [place] [phone] Notes/Report: Triglycerides 266 <150 mg/dL Desirable Triglyceride: less than 150 mg/dL Borderline High Triglyceride 150-199 mg/dL High Triglyceride: 200-499 mg/dL Very High Triglyceride: greater than or equal to 5OO mg/dL Cholesterol 260 <200 mg/dL Desirable Cholesterol: less than 200 mg/dL Borderline High Cholesterol: 200-239 mg/dL High Cholesterol: greater than 239 mg/dL LDL Cholesterol Calculated 173 <100 mg/dL Desirable LDL: less than 100 mg/dL Near Optimal/Above Optimal LDL: 110-129 mg/dL Borderline High LDL: 130-159 mg/dL High LDL: 160-189 mg/dL Very High LDL: greater than or equal to 190 mg/dL HDL Cholesterol 34 >40 mg/dL Desirable HDL: greater than 40 mg/dL Note: This HDL assay may give artificially low results in patients with liver disease. PSA,Total (Free>4and<10) Reviewed date:05/18/2024 11:54:37 AM Interpretation: Performing Lab:[facility], [address] [place] [phone] Notes/Report: PSA,Total (Free>4and<10) 1.21 0.00-4.00 ng/mL A Free PSA was not performed: The percentage of Free PSA can be used to enhance the differentiation of prostate cancer from benign prostatic disease in subjects whose PSA levels are between 4.0 and 10.0 ng/mL. For subjects whose PSA levels are below 4.0 or above 10.0 ng/mL, the risk of prostate cancer is determined on the basis of the PSA alone. Therefore the % Free PSA is recommended only for those subjects whose PSA levels are between 4.0 and 10.0 ng/mL. PSA methodology: Villalta Alinity i Chemiluminescent Microparticle Immunoassay (CMIA) Vitamin D 25-OH Total Reviewed date:05/18/2024 11:55:20 AM Interpretation: Performing Lab:[facility], [address] [place] [phone] Notes/Report: Vitamin D 25-OH Total 57.3 >30 ng/mL Health Based Reference Values* < 20 ng/mL Deficient 20-30 ng/mL Insufficient > 30 ng/mL Sufficient *Shirley FERRARO. N Engl J Med. 2007;357:266-280 Care must be taken in interpreting Vitamin D results from different laboratories and methodologies. Published data demonstrated that results from patients undergoing hemodialysis may show a negative bias when tested with various automated 25-OH vitamin D assays when compared to LC-MS/MS. When testing samples from patients whose predominant form of Vitamin D is Vitamin D2, such as patients receiving Vitamin D2 supplementation, results that are subtherapeutic should be confirmed with another method such as LC-MS/MS. UA ClnCatch+Micro w/rflx Cul t Reviewed date:05/18/2024 04:36:50 PM Interpretation: Performing Lab:[facility], [address] [place] [phone] Notes/Report: [id number] Urine, Clean Catch Color Urine Yellow Appearance Urine Clear PH 5.0 5.0-9.0 Glucose Urine UA Negative Negative mg/dL Urine Blood Negative Negative Specific [place] - Urine 1.020 1.005-1.025 Urine Protein Negative Neg-Trace mg/dL Urine Ketones Negative Negative mg/dL Nitrite Urine Negative Negative Leukocyte Esterase Urine Negative Negative RBC Urine 0-2 0-2 /HPF WBC Urine 0-5 0-5 /HPF Squamous Epithelial Cell Urine 0-2 0-2 /HPF Bacteria Urine None Seen None Seen Hyaline Casts Urine 0-2 0-2 /LPF REASON FOR VISIT FASTING LABS Encounters Encounter Location Date Provider Diagnosis Bhargav Joe MD [address] [place] [address] [place] [phone] 05/18/2024 Bhargav Joe Blood tests for rout ine general physical examination Z00.00 ; Vitamin D deficiency E55.9 and Hypercholesterolemia E78.00 Assessments Encounter Date Diagnosis (ICD Code) Assessment Notes Treatment Notes Treatment Clinical Notes Section Notes 05/18/2024 Blood tests for rout ine general physical examination (ICD-10 - Z00.00) 05/18/2024 Vitamin D deficiency (ICD-10 - E55.9) 05/18/2024 Hypercholesterolemia (ICD-10 - E78.00) Plan Of Treatment Next Appt Details Provider Name:Bhargav heart, 11/29/2025 03:00:00 PM, [address] [place] [address], [address] [place] [address], [phone], Provider Name:Bhargav heart, 05/23/2026 07:15:00 AM, [address] [place] [address], [address] [place] [address], [phone], Provider Name:Bhargav Stiles ier, 05/30/2026 02:30:00 PM, [address], [address], [place], [place], [phone], Progress Notes * Ty NICHOLSON MDOB:[birth year] (55 yo M)Acc No.[id number]:05/18/2024 Progress Note Patient: Ty ESCALANTE Provider: Any Jeo MD :1970 A ge:53 Y S ex:Male Date:05/18/2024 Address:[address] [place] [address], [facility], [facility] Subjective: * Chief Complaints: * 1 . FASTING LABS. * Medical History: Objective: * Vitals: Assessment: * Assessment: 1. B lood tests for routine general physical examination - Z00.00 (Primary) 2 .?Vitamin D deficiency - E55.9 3 . H ypercholesterolemia - E78.00 Plan: * Treatment: 2. V itamin D deficiency L AB: Complete Blood Count Auto Diff (Collection Date & Time - 05/18/2024 07:45 AM) L AB: Comprehensive [place]. Panel Fast (Collection Date & Time - 05/18/2024 07:45 AM) L AB: Lipid Panel (Collection Date & Time - 05/18/2024 07:45 AM) L AB: PSA,Total (Free>4and<10) (Collection Date & Time - 05/18/2024 07:45 AM) L AB: Vitamin D 25-OH Total (Collection Date & Time - 05/18/2024 07:45 AM) L AB: UA ClnCatch+Micro w/rflx Cult (Collection Date & Time - 05/18/2024 07:45 AM) 3. H ypercholesterolemia L AB: Complete Blood Count Auto Diff (Collection Date & Time - 05/18/2024 07:45 AM) L AB: Comprehensive [place]. Panel Fast (Collection Date & Time - 05/18/2024 07:45 AM) L AB: Lipid Panel (Collection Date & Time - 05/18/2024 07:45 AM) L AB: PSA,Total (Free>4and<10) (Collection Date & Time - 05/18/2024 07:45 AM) L AB: Vitamin D 25-OH Total (Collection Date & Time - 05/18/2024 07:45 AM) L AB: UA ClnCatch+Micro w/rflx Cult (Collection Date & Time - 05/18/2024 07:45 AM) * Procedure Codes: 3 6415 VENIPUNCT, ROUTINE* * * The named appointment provid er may or may not be the originator of this progress note, and it is not deemed complete until electronically signed by the appointment provider. Sign off status: Pending * Provider: Any Joe MD Date: 0 05/18/2024 Generated for Edouard vivar/Ramona/Shashank on: 1 12/24/2024 11:40 AM EST
--- OUTSIDE RECORDS SUMMARY | 2024-05-22 07:30 | XMS_ITS ---
Author Organization [facility] Address [address] [place] [address] Support Name Relationship Address Phone ELIANA LAO Emergency Contact [address] [place] [address] LATANYA ALO Guarantor Unknown [phone] Care Team Providers Care Physics Teacher Name Role Phone Heath RAI, Bhargav Primary Care Provider Nazario Slaughter Unavailable [phone] Problems Problem Type SNOMED Code ICD Code Onset Dates Problem Status W/U Status Risk Notes Problem Diverticular disease of colon (640887965) Diverticulosis of large intestine without perforation or abscess without bleeding (K57.30) Active confirmed Encounters Encounter Location Date Provider Diagnosis [facility] [place] [address] [place] [phone] 05/22/2024 Nazario Reyna Colon cancer scree kartik Z12.11 ; Diverticulosis of large intestine without perforation or abscess without bleeding K57.30 and Other hemorrhoids K64.8 Assessments Encounter Date Diagnosis (ICD Code) Assessment Notes Treatment Notes Treatment Clinical Notes Section Notes 05/22/2024 Colon cancer screening (ICD-10 - Z12.11) 05/22/2024 Diverticulosis of large intestine without perforation or abscess without bleeding (ICD-10 - K57.30) 05/22/2024 Other hemorrhoids (ICD-10 - K64.8) Plan Of Treatment No Information Progress Notes * LATANYA LAODOB:1970 (55 yo M)Acc No.[id number]:05/22/2024 COLON WITH MAC Patient: LATANYA ESCALANTE Provider: Judy Reyna MD :1970 A ge:53 Y S ex:Male Date:05/22/2024 Address:[address] [place] [address] [facility] Pcp:Bhargav Joe MD Assessment: * Assessment: 1. C olon cancer screening - Z12.11 (Primary) 2 . D iverticulosis of large intestine without perforation or abscess without bleeding - K57.30 3 . O ther hemorrhoids - K64.8 Plan: * Procedure Codes: 4 5378 DIAGNOSTIC COLONOSCOPY Billing Information: * Procedure Codes: 10656 DIAGNOSTIC COLONOSCOPY. * The named appointment provid er may or may not be the originator of this progress note, and it is not deemed complete until electronically signed by the appointment provider. Sign off status: Pending * Provider: Judy Reyna MD Date: 0 05/22/2024 Generated for Edouard vivar/Ramona/Babsitting on: 12/24/2024 11:40 AM EST
--- OUTSIDE RECORDS SUMMARY | 2024-05-22 11:00 | XMS_ITS ---
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 Name Role Phone Bhargav Joe Primary Care Provider Allergies No Known Allergies Results Component Value Reference Range Notes Occult Blood, Stool, Guaiac Reviewed date:05/23/2024 05:03:31 PM Interpretation:Negative Performing Lab: Notes/Report: Negative Reason For Referral Reason JAYME Diagnosis 1 JAYME (obstructive sle ep apnea) (G47.33) Referral Organization Bhargav Joe MD Referring Provider First Name Bhargav Referring Provider Last Name Heath Referring Provider Speciality Internal M edicine Referred Provider Sleep Medicine, Serv ices Referred Provider Specialty Sleep Medici ne General Notes Melody Moe 06/08/2024 11:07:04 AM EDT > PER SLEEP MED SERVICES KAVITHA IS SCHEDULED FOR Sep AT 2:45PM Referral Priority Routine Referral Appointment Date 09/12/2024 REASON FOR VISIT ANNUAL EXAM Medications Medication SIG (Take, Route, Frequency, Duration) Notes Start Date End Date Status valACYclovir HCl 1 GM 1 tablet Orally On ce a day for 90 days 05/18/2022 Active Rosuvastatin Calcium 20 MG 1 tablet Orally Once a day for 30 day(s) 06/23/2018 Not-Taking Tadalafil 20 MG as directed Oral Onc e a day for 30 days 12/27/2018 Not-Taking Sildenafil Citrate 20 MG 2 tablet Orally Once a day for 30 day(s) 06/23/2018 Not-Taking Silvadene 1 % 1 application to affected area Externally Once a day for 30 days 09/20/2017 Not-Taking Zoryve 0.3 % 1 application Externally Once a day Active Vitamin D3 2000 UNIT 2 tablet Orally Onc e a day 01/07/2018 Active Cephalexin 500 MG 1 capsule Orally Fou r times a day for 5 day(s) 05/20/2023 Active Social History Tobacco Use: Social History Observation Description Date Details (start date - stop date) Former Smoker NA - NA Tobacco Use/Smoking Question Answer Notes Patient is a former smoker How long has it been since y ou last smoked? 5-10 years Additional Findings: Tobacco Non-User Fo rmer smoker, currently using no form of tobacco Alcohol Screen Question Answer Notes Did you have a drink containing alcohol in the p ast year? No Points 0 Interpretation Negative Problems Problem Type SNOMED Code ICD Code Onset Dates Problem Status W/U Status Risk Notes Problem [id number] JAYME (obstructive sleep apnea) (G47.33) Active confirmed Vital Signs Blood pressure systolic 116 mm Hg 05/22/20 24 Blood pressure diastolic 70 mm Hg 024 Height 73 in 05/22/2024 Weight 187 lbs 05/22/2024 BMI 24.67 kg/m2 05/22/2024 weight is down 19 pounds sin 05-20-23 Encounters Encounter Location Date Provider Diagnosis Bhargav Joe MD [address] [place] [phone] 05/22/2024 Bhargav Joe JAYME (obstructive sle ep apnea) G47.33 ; Annual physical exam Z00.00 ; Hypercholesterolemia E78.00 ; Vitamin D deficiency E55.9 ; Colon cancer screening Z12.11 and Depression screening Z13.31 Assessments Encounter Date Diagnosis (ICD Code) Assessment Notes Treatment Notes Treatment Clinical Notes Section Notes 05/22/2024 JAYME (obstructive sle ep apnea) (ICD-10 - G47.33) needs referral [place] [facility] [place] [place] NOT [place]NEW PATIENTS, THE REFERRAL HAS BEEN MADE TO SLEEP MED SERVICES AT PATIENT REQUEST 05/22/2024 Annual physical exam (ICD-10 - Z00.00) l;abs reviewd and doiscussed with patient 05/22/2024 Hypercholesterolemia (ICD-10 - E78.00) is going to get back on diet and recheck next year 05/22/2024 Vitamin D deficiency (ICD-10 - E55.9) stable, will continue current regiment 05/22/2024 Colon cancer screeni ng (ICD-10 - Z12.11) guaiac negative 05/22/2024 Depression screening (ICD-10 - Z13.31) negtive screen Plan Of Treatment Medication Medication Name Sig Start Date Stop Date Notes Vitamin D3 2000 UNIT 2 tablet Orally Once a day 01/07/2018 Treatment Notes Assessment Notes JAYME (obstructive sleep apnea) needs refe rral to [place] medicine [place] [facility] [place] [place] NOT ACCEPTINGNEW PATIENTS, THE REFERRAL HAS BEEN MADE TO SLEEP MED SERVICES AT PATIENT REQUEST Annual physical exam l;abs reviewd and d oiscussed with patient Hypercholesterolemia is going to get ludmila k on diet and recheck next year Vitamin D deficiency stable, will contin ue current regiment Colon cancer screening guaiac negative Depression screening negtive screen Referrals Referral Date Details 05/22/2024 05/22/2024, JAYME, Ser vices Sleep Medicine Next Appt Details Follow Up: 1 Year, Reason: Provider Name:Bhargav heart, 11/29/2025 03:00:00 PM, [address] [place] [address], [address] [place] [address], [phone], Provider Name:Bhargav heart, 05/23/2026 07:15:00 AM, [address] [place] [address], Suite [facility], [place], [place], [phone], Provider Name:Bhargav heart, 05/30/2026 02:30:00 PM, [address] [place] [address], [address] [place] [address], [phone], Progress Notes * Ty NICHOLSON MDOB:[birth year] (53 yo M)Acc No.[id number]:05/22/2024 Progress Notes Patient: Ty Smith Provider: Any Joe MD :1970 A ge:53 Y S ex:Male Date:05/22/2024 Address:[address] [place] [address], [id number] Subjective: * Chief Complaints: * A NNUAL EXAM * HPI: D epression Screening: PHQ-9 L ittle interest or pleasure in doing things N ot at all, F eeling down, depressed, or hopeless N ot at all, T rouble falling or staying asleep, or sleeping too much N ot at all, F eeling tired or having little energy N ot at all, P oor appetite or overeating N ot at all, F eeling bad about yourself or that you are a failure, or have let yourself or your family down N ot at all, T rouble concentrating on things, such as reading the newspaper or watching television N ot at all, M oving or speaking so slowly that other people could have noticed; or the opposite, being so fidgety or restless that you have been moving around a lot more than usual N ot at all, T houghts that you would be better off or of hurting yourself in some way N ot at all, T otal Score 0 . I nterpretation and Intervention D epression Screening Findings N egative, F ollow-Up for Depression : review of PHQ-9 found negative result, no follow-up needed. patient is a 53 yo male here for annual visit with review of recent labs and follow up of chronic issues. had to have his elbow hardware taken out due to infection in joint. C ommunication Needs: Communication Needs D oes the patient have a hearing impairment N o, D oes the patient have a vision impairment? Y es, I f yes, what is the vision impairment? G lasses, D oes the patient have a cognition impairment? N o. S INOCENTE Questions: SDOH Questions I n the past year have you been worried about losing housing? N o, I n the past year have you or any family members you live with been unable to get any of the following when it was really needed? Check all that apply: N one. * ROS: G eneral/Constitutional: Patient denies f atigue, headache. C hange in appetite?denies. C hills d enies. F ever d enies. O phthalmologic: Blurred vision d enies. D ischarge d enies. P ain d enies. E NT: Patient denies d ecreased sense of smell, any loss of taste, sore throat. D ecreased hearing d enies. S ore throat d enies. S wollen glands?denies. E ndocrine: Cold intolerance d enies. E xcessive thirst d enies. H eat intolerance d enies. W eight loss d enies. R espiratory: Cough d enies. S hortness of breath at rest d enies. S hortness of breath with exertion d enies. W heezing d enies. C ardiovascular: Chest pain at rest d enies. C hest pain with exertion?denies. I rregular heartbeat d enies. S hortness of breath d enies. ? G astrointestinal: Abdominal pain d enies. C hange in bowel habits d enies. D iarrhea d enies. N ausea d enies. R ectal bleeding d enies. V omiting d enies . G enitourinary: Blood in urine d enies. D ifficulty urinating d enies. F requent urination d enies. M usculoskeletal: Patient denies m uscle aches. P ainful joints d enies. W eakness d enies. P eripheral Vascular: Patient denies r ed and blue toes. S kin: Dry skin d enies. I tching d enies. D enies?Mole(s), changes in moles, new moles or any lesions of concern. D enies P hotosensitivity. R mar d enies. N eurologic: Dizziness d enies. F ainting d enies. H eadache?denies. * Medical History: * Surgical History: * Hospitalization/Major Diagno stic Procedure: * Family History: F ather: alive 75 yrs, diagnosed with Hypertension. M other: alive 74 yrs, diagnosed with Hypertension. 1 sister(s) . . Denies mental health/substance abuse family history, Denies mental health/substance abuse family history, No pertinent family medical history, Denies mental health/substance abuse family history, Denies mental health/substance abuse family history. * Social History: T obacco Use: T obacco Use/Smoking P atient is a f ormer smoker, H ow long has it been since you last smoked? 5 -10 years, A dditional Findings: Tobacco Non-User F ormer smoker, currently using no form of tobacco. D rugs/Alcohol: A lcohol Screen D id you have a drink containing alcohol in the past year? N o, P oints 0 , I nterpretation N egative. M iscellaneous: C affeine: yes, frequency:, 1-2 cups per day. no Children. Community involvements: yes. Exercise: yes, gym once a week walking and biking. Home smoke detector use: yes. Housing: renting. Living with: significant other. Occupation: weeks/months/years, works full-time. Pets: none. no Travel outside of the [place]. * Medications: T akingZoryve 0.3 % Cream 1 application Externally Once a dayCephalexin 500 MG Capsule 1 capsule Orally Four times a dayVitamin D3 2000 UNIT Tablet 2 tablet Orally Once a dayvalACYclovir HCl 1 GM Tablet 1 tablet Orally Once a dayTaking Zoryve 0.3 % Cream 1 application Externally Once a dayTaking Cephalexin 500 MG Capsule 1 capsule Orally Four times a dayTaking Vitamin D3 2000 UNIT Tablet 2 tablet Orally Once a dayTaking valACYclovir HCl 1 GM Tablet 1 tablet Orally Once a dayNot- Taking/PRNRosuvastatin Calcium 20 MG Tablet 1 tablet Orally Once a dayTadalafil 20 MG Tablet as directed Oral Once a daySildenafil Citrate 20 MG Tablet 2 tablet Orally Once a daySilvadene 1 % Cream 1 application to affected area Externally Once a dayNot-Taking/PRN Rosuvastatin Calcium 20 MG Tablet 1 tablet Orally Once a dayNot-Taking/PRN Tadalafil 20 MG Tablet as directed Oral Once a dayNot-Taking/PRN Sildenafil Citrate 20 MG Tablet 2 tablet Orally Once a dayNot-Taking/PRN Silvadene 1 % Cream 1 application to affected area Externally Once a dayDiscontinuedTacrolimus 0.1 % Ointment 1 application Externally Once a dayClobetasol Propionate 0.05 % Cream 1 application Externally Twice a dayMedication List reviewed and reconciled with the patientDiscontinued Tacrolimus 0.1 % Ointment 1 application Externally Once a dayDiscontinued Clobetasol Propionate 0.05 % Cream 1 application Externally Twice a dayMedication List reviewed and reconciled with the patient * Allergies: N .K.D.A.yes[Allergies Verified] Objective: * Vitals: H t: 73, Wt:187, BMI:24.67, BP:116/70 weight is down 19 pounds since 05-20-23. * P ast Orders: L ab:Vitamin D 25-OH Total (Order Date - 05/18/2024) (Collection Date - 05/18/2024) Value Reference Range Vitamin D 25-OH Total 57.3 >30 - ng/mL L ab:UA ClnCatch+Micro w/rflx Cult (Order Date - 05/18/2024) (Collection Date - 05/18/2024) Value Reference Range Color Urine Yellow - Appearance Urine Clear - PH 5.0 5.0-9.0 - Glucose Urine UA Negative Negative - mg/dL Urine Blood Negative Negative - Specific [place] - Urine 1.020 1.005-1.025 - Urine Protein Negative Neg-Trace - mg/dL Urine Ketones Negative Negative - mg/dL Nitrite Urine Negative Negative - Leukocyte Esterase Urine Negative Negative - RBC Urine 0-2 0-2 - /HPF WBC Urine 0-5 0-5 - /HPF Squamous Epithelial Cell Urine 0-2 0-2 - /HP F Bacteria Urine None Seen None Seen - Hyaline Casts Urine 0-2 0-2 - /LPF L ab:Complete Blood Count Auto Diff (Order Date - 05/18/2024) (Collection Date - 05/18/2024) Value Reference Range White Blood Count 8.6 4.8-10.8 - X10*3/uL Red Blood Count 4.82 4.60-5.80 - X10*6/uL Hemoglobin 14.1 14.0-18.0 - g/dl Hematocrit 44.2 42.0-52.0 - % Mean Corpuscular Volume 91.7 80.0-98.0 - fL Mean Corpuscular Hemoglobin 29.3 27.0-33.0 - pg Mean Corpuscular HGB Conc 31.9 31.0-36.0 - g/ dl Red Cell Distribution Width 15.0 11.0-16.0 - % Platelet Count 515 H 160-400 - X10*3/uL Mean Platelet Volume 10.3 9.4-12.4 - fL Neutrophils Percent Auto 60.0 45-73 - % Imm Gran Pct Auto 1.0 H 0.0-0.4 - % Lymphocytes Percent Auto 27.3 20-40 - % Monocytes Percent Auto 9.6 2-11 - % Eosinophils Percent Auto 1.3 0-4 - % Basophils Percent Auto 0.8 0-2 - % NRBC Pct Auto 0.0 0.0-0.2 - /100WBC Neutrophils Absolute Auto 5.2 2.0-8.3 - x10* 3/uL Imm Gran Abs Auto 0.09 H 0.00-0.03 - X10*3/uL Lymphocytes Absolute Auto 2.4 1.2-4.9 - X10* 3/uL Monocytes Absolute Auto 0.8 0.1-1.2 - X10*3/ uL Eosinophils Absolute Auto 0.1 0.0-0.4 - X10* 3/uL Basophils Absolute Auto 0.1 0.0-0.2 - X10*3/ uL NRBC Abs Auto 0.000 0.0-0.012 - X10*3/uL L ab:Comprehensive [place]. Panel Fast (Order Date - 05/18/2024) (Collection Date - 05/18/2024) Value Reference Range Sodium 138 135-145 - mmol/L Bilirubin Total 0.3 0.0-1.0 - mg/dL Aspartate Amino Transferase 23 5-37 - U/L Alanine Aminotransferase 35 0-40 - U/L Total Protein 7.8 6.5-8.0 - g/dL Albumin Level 4.1 3.5-5.0 - g/dL Alkaline Phosphatase 75 39-117 - U/L Potassium 4.3 3.3-5.1 - mmol/L Chloride 100 96-108 - mmol/L Carbon Dioxide 28 22-29 - mmol/L Anion Gap 14 12-20 - Blood Urea Nitrogen 17 H 9-16 - mg/dL Creatinine 0.79 0.5-1.4 - mg/dL Estimated Glomerular Filt Rate > 60 - Glucose Fasting 109 H 60-99 - mg/dL Calcium 9.6 8.4-10.2 - mg/dL L ab:Lipid Panel (Order Date - 05/18/2024) (Collection Date - 05/18/2024) Value Reference Range Triglycerides 266 H <150 - mg/dL Cholesterol 260 H <200 - mg/dL LDL Cholesterol Calculated 173 H <100 - mg/dL HDL Cholesterol 34 L >40 - mg/dL L ab:PSA,Total (Free>4and<10) (Order Date - 05/18/2024) (Collection Date - 05/18/2024) Value Reference Range PSA,Total (Free>4and<10) 1.21 0.00-4.00 - ng/ mL * Examination: G eneral Examination: GENERAL APPEARANCE: w ell developed, well nourished, in no acute distress. HEAD: n ormocephalic, atraumatic. EYES: p upils equal, round, reactive to light and accommodation, sclera non-icteric. EARS: n ormal. ORAL CAVITY: m ucosa moist. THROAT: c lear. NECK/THYROID: n deidra supple, full range of motion, no cervical lymphadenopathy, no bruits. SKIN: w arm and dry, no suspicious lesions. HEART: r egular rate and rhythm, S1, S2 normal, no murmurs.? LUNGS: c lear to auscultation bilaterally. ABDOMEN: s oft, nontender, nondistended, bowel sounds present, normal, no organomegaly , no masses palpable. RECTAL EXAM: n ormal tone, no external hemorrhoids, no masses palpable, prostate normal, stool guaiac negative. MALE GENITOURINARY: c ircumcised, no testicular mass, testes descended bilaterally. EXTREMITIES: n o clubbing, cyanosis, or edema. NEUROLOGIC: n onfocal, motor strength normal upper and lower extremities, sensory exam intact. Assessment: * Assessment: 1. A nnual physical exam - Z00.00 (Primary) 2 . O SA (obstructive sleep apnea) - G47.33?3. H ypercholesterolemia - E78.00 4 . V itamin D deficiency - E55.9 5 . C olon cancer screening - Z12.11 6 . D epression screening - Z13.31 Plan: * Treatment: 2. O SA (obstructive sleep apnea) Notes: needs referral to [place] medicine [place] [facility] [place] [place] NOT ACCEPTINGNEW PATIENTS, THE REFERRAL HAS BEEN MADE TO SLEEP MED SERVICES AT PATIENT REQUEST. ? Referral To:Services Sleep Medicine Sleep Medicine Reason:JAYME 3. H ypercholesterolemia Notes: is going to get back on diet and recheck next year. 4. V itamin D deficiency Continue Vitamin D3 Tablet, 2000 UNIT, 2 tablet, Orally, Once a day. Notes: stable, will continue current regiment. 5. C olon cancer screening L AB: Occult Blood, Stool, Guaiac N egative Notes: guaiac negative. 6. D epression screening Notes: negtive screen. * Procedure Codes: 8 2270 TEST FOR BLOOD, FECES * Follow Up: 1 Year * * Sign off status: Completed true * Provider: Any Joe MD Date: 0 05/22/2024 Generated for Edouard vivar/Ramona/Shashank on: 1 12/24/2024 11:39 AM EST History and Physical Notes * HPI (History of Present Illness) Category Sub-Category Detail Notes Category Not es Depression Screening PHQ-9 Little inte rest or pleasure in doing things: Not at all patient is a 53 yo male here for annual visit with review of recent labs and follow up of chronic issues. had to have his elbow hardware taken out due to infection in joint Feeling down, depressed, or hopeless: No t at all Trouble falling or staying asleep, or sl eeping too much: Not at all Feeling tired or having little energy: N ot at all Poor appetite or overeating: Not at all Feeling bad about yourself o r that you are a failure, or have let yourself or your family down: Not at all Trouble concentrating on thi ngs, such as reading the newspaper or watching television: Not at all Moving or speaking so slowly that other people could have noticed; or the opposite, being so fidgety or restless that you have been moving around a lot more than usual: Not at all Thoughts that you would be b raymon off or of hurting yourself in some way: Not at all Total Score: 0 Interpretation and Intervention Depression Zamzam verdugo Findings: Negative Follow-Up for Depression: : review of PH Q-9 found negative result, no follow-up needed SDOH Questions SDOH Questions In the past year have you been worried about losing housing?: No In the past year have you or any family members you live with been unable to get any of the following when it was really needed? Check all that apply:: None Communication Needs Communication Needs Does the patient have a hearing impairment: No Does the patient have a vision impairmen t?: Yes If yes, what is the vision impairment?: Glasses Does the patient have a cognition impair ment?: No Examination Category Sub-Category Detail Notes Category Not es General Examination GENERAL APPEARANCE: well dev eloped, well nourished, in no acute distress HEAD: normocephalic, atrau matic EYES: pupils equal, round, reactive to light and accommodation, sclera non-icteric EARS: normal THROAT: clear NECK/THYROID: neck supple, full ra nge of motion, no cervical lymphadenopathy, no bruits HEART: regular rate and rhy thm, S1, S2 normal, no murmurs LUNGS: clear to auscultatio n bilaterally ABDOMEN: soft, nontender, non distended, bowel sounds present, normal, no organomegaly , no masses palpable NEUROLOGIC: nonfocal, motor stre ngth normal upper and lower extremities, sensory exam intact SKIN: warm and dry, no yael picious lesions EXTREMITIES: no clubbing, cyanosi s, or edema MALE GENITOURINARY: circumcised, no test icular mass, testes descended bilaterally RECTAL EXAM: normal tone, no exte rnal hemorrhoids, no masses palpable, prostate normal, stool guaiac negative ORAL CAVITY: mucosa moist Consultation Request Notes Referral Date Referring Provider Referred Provider Not es 05/22/2024 Bhargav Joe Sleep Medicine, Services JAYME
--- OUTSIDE RECORDS SUMMARY | 2024-10-03 10:16 | XMS_ITS ---
Author Organization Bhargav Joe MD Address [address] [place] [phone] Care Team Providers Care Reservation Agent Name Role Phone Bhargav Joe Primary Care Provider Medications Medication SIG (Take, Route, Fr equency, Duration) Notes Start Date End Date Status valACYclovir HCl 1 GM 1 tablet Orally On ce a day for 90 days 05/18/2022 Active Encounters Encounter Location Date Provider Diagnosis Bhargav Joe MD 10 [facility] [address] [place] [phone] 10/03/2024 Bhargav Joe Plan Of Treatment Medication Medication Name Sig Start Date Stop Date Notes valACYclovir HCl 1 GM 1 tablet Orally On ce a day for 90 days 05/18/2022 Next Appt Details Provider Name:Bhargav heart, 11/29/2025 03:00:00 PM, [address] [place] [address], [address] [place] [address], [phone], Provider Name:Bhargav heart, 05/23/2026 07:15:00 AM, [address] [place] [address], [address], [phone], Provider Name:Bhargav heart, 05/30/2026 02:30:00 PM, [address] [place] [address], [address], [phone], Progress Notes * Ty NICHOLSON MDOB:[birth year] (54 yo M)Acc No.[id number]:10/03/2024 Patient: Ty Smith :1970 A ge:54 Y S ex:Male Address:[address] [place] [address], [place], [address] * Refills Refill valACYclovir HCl Tablet, 1 GM, Orally, 90, 1 tablet, Once a day, 90 days, Refills=3 * true * Date: Generated for Edouard vivar/Ramona/Babsitting on: 12/24/2024 11:39 AM EST
--- OUTSIDE RECORDS SUMMARY | 2025-03-27 09:37 | XMS_ITS ---
Author Organization Bhargav Joe MD Address [address] [place], [place] [phone] Care Team Providers Care Track Dresser Name Role Phone Bhargav Joe Primary Care Provider REASON FOR VISIT RF Cialis Medications Medication SIG (Take, Route, Fr equency, Duration) Notes Start Date End Date Status Tadalafil 20 MG as directed Oral onc e a day as needed for 30 days 12/27/2018 Active Encounters Encounter Location Date Provider Diagnosis Bhargav Joe MD 10 [facility] [address] [place], [place] [phone] 03/27/2025 Bhargav Joe Plan Of Treatment Medication Medication Name Sig Start Date Stop Date Notes Tadalafil 20 MG as directed Oral onc e a day as needed for 30 days 12/27/2018 Next Appt Details Provider Name:Bhargav heart, 11/29/2025 03:00:00 PM, [address] [place] [address], Suite [facility], [place], [place], [phone], Provider Name:Bhargav heart, 05/23/2026 07:15:00 AM, [address] [place] [address], Suite [facility], [place], [place], [phone], Provider Name:Bhargav heart, 05/30/2026 02:30:00 PM, [address] [place] [address], Suite [facility], [place], [place], [phone], Progress Notes * Ty NICHOLSON MDOB:[birth year] (54 yo M)Acc No.[id number]:03/27/2025 Patient: Ty ESCALANTE :1970 A ge:54 Y S ex:Male Address:[address] [place] [address], [place], [address] * Refills Refill Tadalafil Tablet, 20 MG, Oral, 30, as directed, once a day as needed, 30 days, Refills=4 * true * Date: Generated for Edouard vivar/Ramona/Babsitting on: 12/24/2024 11:40 AM EST
--- OUTSIDE RECORDS SUMMARY | 2025-05-21 02:00 | XMS_ITS ---
Author Organization Bhargav Joe MD Address [address] [place], [place] [id number] Care Team Providers Care Swing Tender Name Role Phone Bhargav Joe Primary Care Provider [phone] Results Component Value Reference Range Notes Complete Blood Count Auto Di ff Reviewed date:05/21/2025 12:41:55 PM Interpretation: Performing Lab:[facility], [address] [place] [phone] Notes/Report: White Blood Count 5.8 4.8-10.8 X10*3/uL Red Blood Count 4.51 4.60-5.80 X10*6/uL Hemoglobin 13.5 14.0-18.0 g/dl Hematocrit 40.8 42.0-52.0 % Mean Corpuscular Volume 90.5 80.0-98.0 fL Mean Corpuscular Hemoglobin 29.9 27.0-33.0 pg Mean Corpuscular HGB Conc 33.1 31.0-36.0 g/dl Red Cell Distribution Width 13.6 11.0-16.0 % Platelet Count 161 160-400 X10*3/uL Mean Platelet Volume 12.7 9.4-12.4 fL Neutrophils Percent Auto 65.1 45-73 % Imm Gran Pct Auto 0.3 0.0-0.4 % Lymphocytes Percent Auto 23.6 20-40 % Monocytes Percent Auto 9.1 2-11 % Eosinophils Percent Auto 1.2 0-4 % Basophils Percent Auto 0.7 0-2 % NRBC Pct Auto 0.0 0.0-0.2 /100WBC Neutrophils Absolute Auto 3.8 2.0-8.3 x10*3/u L Imm Gran Abs Auto 0.02 0.00-0.03 X10*3/uL Lymphocytes Absolute Auto 1.4 1.2-4.9 X10*3/u L Monocytes Absolute Auto 0.5 0.1-1.2 X10*3/uL Eosinophils Absolute Auto 0.1 0.0-0.4 X10*3/u L Basophils Absolute Auto 0.0 0.0-0.2 X10*3/uL NRBC Abs Auto 0.000 0.0-0.012 X10*3/uL Comprehensive [place]. Panel Fa st Reviewed date:05/21/2025 12:42:12 PM Interpretation: Performing Lab:[address] [phone] Notes/Report: Sodium 139 135-145 mmol/L Potassium 4.3 3.3-5.1 mmol/L Chloride 107 96-108 mmol/L Carbon Dioxide 27 22-29 mmol/L Anion Gap 9 12-20 Blood Urea Nitrogen 14 9-16 mg/dL Creatinine 0.78 0.5-1.4 mg/dL Estimated Glomerular Filt Rate > 60 Chronic Kidney Disease: Estimated GFR < 60 mL/min/1.73m2 Severe Kidney Disease: Estimated GFR < 15 mL/min/1.73m2 Glucose Fasting 108 60-99 mg/dL A fasting glucose from 100-125 mg/dl is considered impaired (pre-diabetes). Calcium 8.5 8.4-10.2 mg/dL Bilirubin Total 0.3 0.0-1.0 mg/dL Aspartate Amino Transferase 24 5-37 U/L Alanine Aminotransferase 21 0-40 U/L Total Protein 6.6 6.5-8.0 g/dL Albumin Level 4.0 3.5-5.0 g/dL Alkaline Phosphatase 63 39-117 U/L CRP High Sensitivity Reviewed date:05/25/2025 09:24:04 PM Interpretation: Performing Lab:[address] [phone] Notes/Report: CRP High Sensitivity 0.4 Reference Range Optimal <1.0 Lyle PS et al. Endocr Pract.2017;23(Suppl 2):1-87. For ages >17 Years: hs-CRP mg/L Risk According to AHA/CDC Guidelines <1.0 Lower relative cardiovascular risk. 1.0-3.0 Average relative cardiovascular risk. 3.1-10.0 Higher relative cardiovascular risk. Consider retesting in 1 to 2 weeks to exclude a benign transient elevation in the baseline CRP value secondary to infection or inflammation. >10.0 Persistent elevation, upon retesting, may be associated with infection and inflammation. Ayla TA, Gerald GA, Trey RW, et al. Markers of inflammation and cardiovascular disease: application to clinical and public health practice: A statement for healthcare professionals from the Centers for Disease Control and Prevention and the [place] [employer] Association. Circulation 2003; 107(3): 499-511. THIS TEST WAS PERFORMED AT: [facility] [address] [place] [phone] LAST BOLES MD Lipid Panel Reviewed date:05/21/2025 12:38:41 PM Interpretation: Performing Lab:[address] [phone] Notes/Report: Triglycerides 66 <150 mg/dL Desirable Triglyceride: less than 150 mg/dL Borderline High Triglyceride 150-199 mg/dL High Triglyceride: 200-499 mg/dL Very High Triglyceride: greater than or equal to 5OO mg/dL Cholesterol 218 <200 mg/dL Desirable Cholesterol: less than 200 mg/dL Borderline High Cholesterol: 200-239 mg/dL High Cholesterol: greater than 239 mg/dL LDL Cholesterol Calculated 158 <100 mg/dL Desirable LDL: less than 100 mg/dL Near Optimal/Above Optimal LDL: 110-129 mg/dL Borderline High LDL: 130-159 mg/dL High LDL: 160-189 mg/dL Very High LDL: greater than or equal to 190 mg/dL HDL Cholesterol 47 >40 mg/dL Desirable HDL: greater than 40 mg/dL Note: This HDL assay may give artificially low results in patients with liver disease. PSA,Total (Free>4and<10) Reviewed date:05/21/2025 12:37:57 PM Interpretation: Performing Lab:[facility], [address] [place] [phone] Notes/Report: PSA,Total (Free>4and<10) 0.79 0.00-4.00 ng/mL A Free PSA was not [...] Immunoassay (CMIA) Vitamin D 25-OH Total Reviewed date:05/21/2025 12:39:08 PM Interpretation: Performing Lab:[address] [phone] Notes/Report: Vitamin D 25-OH Total 78.7 >30 ng/mL Health Based Reference Values* < 20 ng/mL Deficient 20-30 ng/mL Insufficient > 30 ng/mL Sufficient *Shirley FERRARO. N Engl J Med. 2007;357:266-280 There is no well-established upper level of normal vitamin D levels. Some laboratories use 50 ng/mL as an upper limit of normal. However, toxicity is patient-dependent and may occur at any level. Careful correlation with the patient's presentation is necessary and, if there is concern for vitamin D toxicity, treatment should be considered irrespective of the serum level. Care must be taken in interpreting Vitamin [...] confirmed with another method such as LC-MS/MS. Testosterone, Free/Total Reviewed date:05/25/2025 09:30:36 PM Interpretation: Performing Lab:[address] [address] Notes/Report: Testosterone, Total 866 448-2354 ng/dL For additional information, please refer to http://education.Winbox Technologies.TapHome/faq/ TotalTestosteroneLCMSMSFAQ1 65 (This link is being provided for informational/ educational purposes only.) This test was developed and its analytical performance characteristics have been determined by [facility] [place], [place]. It has not been cleared or approved by the U.S. Food and Drug Administration. This assay has been validated pursuant to the CLIA regulations and is used for clinical purposes. Testosterone, Free 71.1 35.0-155.0 pg/mL This test was developed and its analytical performance characteristics have been determined by [facility] [place], [place]. It has not been cleared or approved by the U.S. Food and Drug Administration. This assay has been validated pursuant to the CLIA regulations and is used for clinical purposes. THIS TEST WAS PERFORMED AT: [facility] [address] CASIMIRO LAYNE MD,PHD UA ClnCatch+Micro w/rflx Cul t Reviewed date:05/21/2025 12:40:58 PM Interpretation: Performing Lab:[facility], [address] [place] [phone] Notes/Report: [id number] Urine, Clean Catch Color Urine Yellow Appearance Urine Clear PH 5.5 5.0-9.0 Glucose Urine UA Negative Negative mg/dL Urine Blood Negative Negative Specific [place] - Urine 1.020 1.005-1.025 Urine Protein Negative Neg-Trace mg/dL Urine Ketones Negative Negative mg/dL Nitrite Urine Negative Negative Leukocyte Esterase Urine Negative Negative RBC Urine 0-2 0-2 /HPF WBC Urine 0-5 0-5 /HPF Squamous Epithelial Cell Urine 0-2 0-2 /HPF Bacteria Urine None Seen None Seen Hyaline Casts Urine 0-2 0-2 /LPF REASON FOR VISIT FASTING LABS Medications Medication SIG (Take, Route, Frequency, Duration) Notes Start Date End Date Status valACYclovir HCl 1 GM 1 tablet Orally On ce a day for 90 days 05/18/2022 Active Vitamin D3 2000 UNIT 2 tablet Orally Onc e a day 01/07/2018 Active Tadalafil 20 MG as directed Oral onc e a day as needed for 30 days 12/27/2018 Active Silvadene 1 % 1 application to affected area Externally Once a day for 30 days 09/20/2017 Not-Taking Sildenafil Citrate 20 MG 2 tablet Orally Once a day for 30 day(s) 06/23/2018 Not-Taking Zoryve 0.3 % 1 application Externally Once a day Active Rosuvastatin Calcium 20 MG 1 tablet Orally Once a day for 30 day(s) 06/23/2018 Not-Taking Cephalexin 500 MG 1 capsule Orally Fou r times a day for 5 day(s) 05/20/2023 Active Encounters Encounter Location Date Provider Diagnosis Bhargav Joe MD [address] [place] [phone] 05/21/2025 Bharagv Joe Blood tests for rout ine general physical examination Z00.00 ; Hypercholesterolemia E78.00 ; Vitamin D deficiency E55.9 and Erectile dysfunction due to diseases classified elsewhere N52.1 Assessments Encounter Date Diagnosis (ICD Code) Assessment Notes Treatment Notes Treatment Clinical Notes Section Notes 05/21/2025 Blood tests for rout ine general physical examination (ICD-10 - Z00.00) 05/21/2025 Hypercholesterolemia (ICD-10 - E78.00) 05/21/2025 Vitamin D deficiency (ICD-10 - E55.9) 05/21/2025 Erectile dysfunction due to diseases classified elsewhere (ICD-10 - N52.1) Plan Of Treatment Next Appt Details Provider Name:Bhargav heart, 11/29/2025 03:00:00 PM, [address] [place] [address], [address], [phone], Provider Name:Bhargav heart, 05/23/2026 07:15:00 AM, [address] [place] [address], [phone], Provider Name:Bhargav heart, 05/30/2026 02:30:00 PM, [address] [place] [address], [address], [phone], Progress Notes * Ty NICHOLSON MDOB:[birth year] (55 yo M)Acc No.[id number]:05/21/2025 Progress Note Patient: Gisselle SANTINOGiuseppeTy Provider: Any Joe MD :1970 A ge:54 Y S ex:Male Date:05/21/2025 Address:[address] [place] [address], [id number] Subjective: * Chief Complaints: * 1 . FASTING LABS. * Medical History: * Medications: T aking Zoryve 0.3 % Cream 1 application Externally Once a day , Taking Cephalexin 500 MG Capsule 1 capsule Orally Four times a day , Taking Vitamin D3 2000 UNIT Tablet 2 tablet Orally Once a day , Taking valACYclovir HCl 1 GM Tablet 1 tablet Orally Once a day , Taking Tadalafil 20 MG Tablet as directed Oral once a day as needed , Not-Taking/PRN Rosuvastatin Calcium 20 MG Tablet 1 tablet Orally Once a day , Not-Taking/PRN Sildenafil Citrate 20 MG Tablet 2 tablet Orally Once a day , Not-Taking/PRN Silvadene 1 % Cream 1 application to affected area Externally Once a day Objective: * Vitals: Assessment: * Assessment: 1. B lood tests for routine general physical examination - Z00.00 (Primary) 2 .?Hypercholesterolemia - E78.00 3 . V itamin D deficiency - E55.9 4 . E rectile dysfunction due to diseases classified elsewhere - N52.1 Plan: * Treatment: 2. H ypercholesterolemia L AB: Complete Blood Count Auto Diff (Collection Date & Time - 05/21/2025 07:00 AM) L AB: Comprehensive [place]. Panel Fast (Collection Date & Time - 05/21/2025 07:00 AM) L AB: CRP High Sensitivity (Collection Date & Time - 05/21/2025 07:00 AM) L AB: Lipid Panel (Collection Date & Time - 05/21/2025 07:00 AM) L AB: PSA,Total (Free>4and<10) (Collection Date & Time - 05/21/2025 07:00 AM) L AB: Vitamin D 25-OH Total (Collection Date & Time - 05/21/2025 07:00 AM) L AB: UA ClnCatch+Micro w/rflx Cult (Collection Date & Time - 05/21/2025 07:00 AM) 3. V itamin D deficiency L AB: Complete Blood Count Auto Diff (Collection Date & Time - 05/21/2025 07:00 AM) L AB: Comprehensive [place]. Panel Fast (Collection Date & Time - 05/21/2025 07:00 AM) L AB: CRP High Sensitivity (Collection Date & Time - 05/21/2025 07:00 AM) L AB: Lipid Panel (Collection Date & Time - 05/21/2025 07:00 AM) L AB: PSA,Total (Free>4and<10) (Collection Date & Time - 05/21/2025 07:00 AM) L AB: Vitamin D 25-OH Total (Collection Date & Time - 05/21/2025 07:00 AM) L AB: UA ClnCatch+Micro w/rflx Cult (Collection Date & Time - 05/21/2025 07:00 AM) 4. E rectile dysfunction due to diseases classified elsewhere L AB: CRP High Sensitivity (Collection Date & Time - 05/21/2025 07:00 AM) L AB: Testosterone, Free/Total (Collection Date & Time - 05/21/2025 07:00 AM) * Procedure Codes: 3 6415 VENIPUNCT, ROUTINE* * * The named appointment provid er may or may not be the originator of this progress note, and it is not deemed complete until electronically signed by the appointment provider. Sign off status: Pending * Provider: Any Joe MD Date: 0 05/21/2025 Generated for Edouard vivar/Ramona/Babsitting on: 1 12/24/2024 11:39 AM EST
--- OUTSIDE RECORDS SUMMARY | 2025-05-28 05:30 | XMS_ITS ---
Author Organization Bhargav Joe MD Address [address] [place], [place] [phone] Care Team Providers Care Public Relations Account Executive Name Role Phone Bhargav Joe Primary Care Provider [phone] Allergies No Known Allergies Reason For Referral Reason JAYME Diagnosis 1 JAYME (obstructive sle ep apnea) (G47.33) Referral Organization Bhargav Joe MD Referring Provider First Name Bhargav Referring Provider Last Name Heath Referring Provider Speciality Internal M edicine Referred Provider Sammie Troy Referred Provider Specialty Neurology General Notes Arely Donald 0 05/28/2025 11:28:20 AM > patient will be calling me when referral can be faxed to office, Arely Donald 06/15/2025 03:16:40 PM > referral info faxed, Melody Moe 06/28/2025 03:25:34 PM >APPT SCHEDULEDFOR 07/04/25 @ 9AM, PATIENT AWARE Referral Priority Routine Referral Appointment Date 07/04/2025 REASON FOR VISIT ANNUAL EXAM Medications Medication SIG (Take, Route, Frequency, Duration) Notes Start Date End Date Status valACYclovir HCl 1 GM 1 tablet Orally On ce a day for 90 days 05/18/2022 Active Tadalafil 20 MG as directed Oral onc e a day as needed for 30 days 12/27/2018 Active Rosuvastatin Calcium 20 MG 1 tablet Orally Once a day for 30 day(s) 06/23/2018 Not-Taking Zoryve 0.3 % 1 application Externally Once a day Active Vitamin D3 2000 UNIT 2 tablet Orally Onc e a day 01/07/2018 Active Silvadene 1 % 1 application to affected area Externally Once a day for 30 days 09/20/2017 Not-Taking Sildenafil Citrate 20 MG 2 tablet Orally Once a day for 30 day(s) 06/23/2018 Not-Taking Social History Tobacco Use: Social History Observation [...] ast year? No Points 0 Interpretation Negative Vital Signs Blood pressure systolic 102 mm Hg 05/28/20 25 Blood pressure diastolic 64 mm Hg 025 Height 73 in 05/28/2025 Weight 180 lbs 05/28/2025 BMI 23.75 kg/m2 05/28/2025 weight is down 7 pounds [facility] e 05-22-24 Encounters Encounter Location Date Provider Diagnosis Bhargav Joe MD [address] [place], [place] [phone] 05/28/2025 Bhargav Joe Annual physical exam Z00.00 ; Hypercholesterolemia E78.00 and JAYME (obstructive sleep apnea) G47.33 Assessments Encounter Date Diagnosis (ICD Code) Assessment Notes Treatment Notes Treatment Clinical Notes Section Notes 05/28/2025 Annual physical exam (ICD-10 - Z00.00) Labs reviewed and discussed with patient 05/28/2025 Hypercholesterolemia (ICD-10 - E78.00) is coming down on diet 05/28/2025 JAYME (obstructive sle ep apnea) (ICD-10 - G47.33) is unable to use cpap needs referral to dr lim at [facility] Plan Of Treatment Treatment Notes Assessment Notes Annual physical exam Labs reviewed and d iscussed with patient Hypercholesterolemia is coming down on d iet JAYME (obstructive sleep apnea) is unable to use cpap needs referral to dr lim at [facility] Referrals Referral Date Details 05/28/2025 05/28/2025, JAYMEBuddy i Next Appt Details Follow Up: 6 Months, Reason: Provider Name:Bhargav heart, 11/29/2025 03:00:00 PM, [address], [address], [place], [place], [phone], Provider Name:Bhargav Stiles ier, 05/23/2026 07:15:00 AM, [address], [address], [place], [phone], Provider Name:Bhargav Stiles ier, 05/30/2026 02:30:00 PM, [address], [address], [place], [phone], Progress Notes * Ty NICHOLSON MDOB:[birth year] (54 yo M)Acc No.[id number]:05/28/2025 Progress Notes Patient: Gisselle MASTy Provider: Any Joe MD :1970 A ge:54 Y S ex:Male Date:05/28/2025 Address:[address] [place] [address], [id number] Subjective: * Chief Complaints: * A NNUAL [...] PHQ-9 found negative result, no follow-up needed. had been having anxiety attacks in december and january. started going to gym and has a security trainer twice a week. panic attacks went away by cutting out sugar and weed. C ommunication Needs: Communication Needs D oes the patient have a hearing impairment N o, D oes the patient have a vision impairment? N o, D oes the patient have a cognition impairment? N o. F all Risk: History H ave you had any falls with injury in the past year? N o, H ave you had two or more falls in the past year? N o. S INOCENTE Questions: SDOH Questions I n the past year have you been worried about losing housing? N o, I n the past year have you or any family members you live with been unable to get any of the following when it was really needed? Check all that apply: N one. S ymptom(s): patient is a 54 yo male here for annual visit with review of recent l;abs and follow up of chronic issues. * ROS: G eneral/Constitutional: Change in appetite d enies. C hills d enies. F ever d enies. O phthalmologic: Blurred vision d enies. D ischarge d enies. P ain d enies. E NT: Decreased hearing d enies. S ore throat d enies.?Swollen glands d enies. E ndocrine: Cold intolerance d enies. E [...] F requent urination d enies. M usculoskeletal: Painful joints d enies. W eakness d enies. ? S kin: Dry skin d enies. I [...] affeine: yes, frequency:, 1-2 cups per day. Children: no. Community involvements: yes. Exercise: yes, gym twice a week walking and biking. Home smoke detector use: yes. Housing: renting. Living with: significant other. Occupation: weeks/months/years, works full-time. Pets: none. Travel outside of the [place]: no. * Medications: T akingZoryve 0.3 % Cream 1 application Externally Once a day Vitamin D3 2000 UNIT Tablet 2 tablet Orally Once a day valACYclovir HCl 1 GM Tablet 1 tablet Orally Once a day Tadalafil 20 MG Tablet as directed Oral once a day as needed Taking Zoryve 0.3 % Cream 1 application Externally Once a day Taking Vitamin D3 2000 UNIT Tablet 2 tablet Orally Once a day Taking valACYclovir HCl 1 GM Tablet 1 tablet Orally Once a day Taking Tadalafil 20 MG Tablet as directed Oral once a day as needed Not-Taking/PRNRosuvastatin Calcium 20 MG Tablet 1 tablet Orally Once a day Sildenafil Citrate 20 MG Tablet 2 tablet Orally Once a day Silvadene 1 % Cream 1 application to affected area Externally Once a day Not-Taking/PRN Rosuvastatin Calcium 20 MG Tablet 1 tablet Orally Once a day Not-Taking/PRN Sildenafil Citrate 20 MG Tablet 2 tablet Orally Once a day Not-Taking/PRN Silvadene 1 % Cream 1 application to affected area Externally Once a day * Allergies: N .K.D.A.yes[Allergies Verified] Objective: * Vitals: H t: 73, Wt: 180, BMI:23.75, BP:102/64, Wt-k.65. weight is down 7 pounds since 05-22-24. * P ast Orders: L ab:Lipid Panel (Order Date - 05/21/2025) (Collection Date & Time - 05/21/2025 07:00 AM) Value Reference Range Triglycerides 66 <150 - mg/dL Cholesterol 218 H <200 - mg/dL LDL Cholesterol Calculated 158 H <100 - mg/dL HDL Cholesterol 47 >40 - mg/dL L ab:PSA,Total (Free>4and<10) (Order Date - 05/21/2025) (Collection Date & Time - 05/21/2025 07:00 AM) Value Reference Range PSA,Total (Free>4and<10) 0.79 0.00-4.00 - ng/ mL L ab:Vitamin D 25-OH Total (Order Date - 05/21/2025) (Collection Date & Time - 05/21/2025 07:00 AM) Value Reference Range Vitamin D 25-OH Total 78.7 >30 - ng/mL L ab:UA ClnCatch+Micro w/rflx Cult (Order Date - 05/21/2025) (Collection Date & Time - 05/21/2025 07:00 AM) Value Reference Range Color Urine Yellow - Appearance Urine Clear - PH 5.5 5.0-9.0 - Glucose Urine UA Negative Negative - mg/dL Urine Blood Negative Negative - Specific [place] - Urine 1.020 1.005-1.025 - Urine Protein [...] Blood Count Auto Diff (Order Date - 05/21/2025) (Collection Date & Time - 05/21/2025 07:00 AM) Value Reference Range White Blood Count 5.8 4.8-10.8 - X10*3/uL Red Blood Count 4.51 L 4.60-5.80 - X10*6/uL Hemoglobin 13.5 L 14.0-18.0 - g/dl Hematocrit 40.8 L 42.0-52.0 - % Mean Corpuscular Volume 90.5 80.0-98.0 - fL Mean Corpuscular Hemoglobin 29.9 27.0-33.0 - pg Mean Corpuscular HGB Conc 33.1 31.0-36.0 - g/ dl Red Cell Distribution Width 13.6 11.0-16.0 - % Platelet Count 161 160-400 - X10*3/uL Mean Platelet Volume 12.7 H 9.4-12.4 - fL Neutrophils Percent Auto 65.1 45-73 - % Imm Gran Pct Auto 0.3 0.0-0.4 - % Lymphocytes Percent Auto 23.6 20-40 - % Monocytes Percent Auto 9.1 2-11 - % Eosinophils Percent Auto 1.2 0-4 - % Basophils Percent Auto 0.7 0-2 - % NRBC Pct Auto 0.0 0.0-0.2 - /100WBC Neutrophils Absolute Auto 3.8 2.0-8.3 - x10* 3/uL Imm Gran Abs Auto 0.02 0.00-0.03 - X10*3/uL Lymphocytes Absolute Auto 1.4 1.2-4.9 - X10* 3/uL Monocytes Absolute Auto 0.5 0.1-1.2 - X10*3/ uL Eosinophils Absolute Auto 0.1 0.0-0.4 - X10* 3/uL Basophils Absolute Auto 0.0 0.0-0.2 - X10*3/ uL NRBC Abs Auto 0.000 0.0-0.012 - X10*3/uL L ab:Comprehensive [place]. Panel Fast (Order Date - 05/21/2025) (Collection Date & Time - 05/21/2025 07:00 AM) Value Reference Range Sodium 139 135-145 - mmol/L Bilirubin Total 0.3 0.0-1.0 - mg/dL Aspartate Amino Transferase 24 5-37 - U/L Alanine Aminotransferase 21 0-40 - U/L Total Protein 6.6 6.5-8.0 - g/dL Albumin Level 4.0 3.5-5.0 - g/dL Alkaline Phosphatase 63 39-117 - U/L Potassium 4.3 3.3-5.1 - mmol/L Chloride 107 96-108 - mmol/L Carbon Dioxide 27 22-29 - mmol/L Anion Gap 9 L 12-20 - Blood Urea Nitrogen 14 9-16 - mg/dL Creatinine 0.78 0.5-1.4 - mg/dL Estimated Glomerular Filt Rate > 60 - Glucose Fasting 108 H 60-99 - mg/dL Calcium 8.5 8.4-10.2 - mg/dL * Examination: G eneral Examination: GENERAL APPEARANCE: [...] organomegaly , no masses palpable. RECTAL EXAM: s tool guaiac negative. MALE GENITOURINARY: c ircumcised, no testicular mass, testes descended bilaterally. EXTREMITIES: n o clubbing, cyanosis, or edema. NEUROLOGIC: n onfocal, motor strength normal upper and lower extremities, sensory exam intact. Assessment: * Assessment: 1. A nnual physical exam - Z00.00 (Primary) 2 . H ypercholesterolemia - E78.00 3 . O SA (obstructive sleep apnea) - G47.33 Plan: * Treatment: 2. H ypercholesterolemia Notes: is coming down on diet 3. O SA (obstructive sleep apnea) Notes: is unable to use cpap needs referral to dr lim at [facility] Referral To:Sammie Troy Neurology Reason:JAYME * Procedure Codes: * Follow Up: 6 Months * * Sign off status: Completed true * Provider: Any Joe MD Date: 0 05/28/2025 Generated for Edouard vivar/Ramona/eTransmitting on: 1 12/24/2024 11:38 AM EST History and Physical Notes * HPI (History of Present Illness) Category Sub-Category Detail Notes Category Not es Symptom(s) patient is a 54 yo male here for annual visit with review of recent l;abs and follow up of chronic issues Depression Screening PHQ-9 Little inte rest or pleasure in doing things: Not at all had been having anxiety attacks in december and january. started going to gym and has a security trainer twice a week. panic attacks went away by cutting out sugar and weed. Feeling down, depressed, or hopeless: No t [...] really needed? Check all that apply:: None Fall Risk History Have you had any falls with injury i n the past year?: No Have you had two or more falls in the year?: No Communication Needs Communication Needs Does the patient have a hearing impairment: No Does the patient have a vision impairmen t?: No Does the patient have a cognition impair [...] icular mass, testes descended bilaterally RECTAL EXAM: stool guaiac negativ e ORAL CAVITY: mucosa moist Consultation Request Notes Referral Date Referring Provider Referred Provider Not es 05/28/2025 Bhargav Joe Rani OSA
--- OUTSIDE RECORDS SUMMARY | 2025-07-30 09:14 | XMS_ITS ---
Author Organization Bhargav Joe MD Address [address] [place] [phone] Care Team Providers Care Will Call Order Clerk Name Role Phone Bhargav Joe Primary Care Provider Reason For Referral Reason erectile dysfunstion Diagnosis 1 Erectile dysfunction , unspecified erectile dysfunction type (N52.9) Referral Organization Bhargav Joe MD Referring Provider First Name Bhargav Referring Provider Last Name Heath Referring Provider Speciality Internal M edicine Referred Provider Trey Gillette Referred Provider Specialty Urology General Notes Arely Donald 1 09:55:56 AM >referral info faxed [phone], Arely Donald 08/10/2025 10:54:55 AM >was told patient is aware of appt Referral Priority Routine Referral Appointment Date 10/23/2025 REASON FOR VISIT Urologist referral Encounters Encounter Location Date Provider Diagnosis Bhargav Joe MD [address] [place] [address] [address] [place] [phone] 07/30/2025 Bhargav Joe Plan Of Treatment Referrals Referral Date Details 08/02/2025 08/02/2025, erectile dysfunstion, Trey Gillette Next Appt Details Provider Name:Bhargav heart, 11/29/2025 03:00:00 PM, [address] [place] [address], [address] [place] [address], [phone], Provider Name:Bhargav heart, 05/23/2026 07:15:00 AM, [address] [place] [address], [address], [phone], Provider Name:Bhargav Stiles ier, 05/30/2026 02:30:00 PM, [address], [address], [place], [phone], Progress Notes * Ty NICHOLSON MDOB:[birth year] (55 yo M)Acc No.[id number]:07/30/2025 Patient: Gisselle DEGiuseppeTy :1970 A ge:55 Y S ex:Male Address:[address] [place] [address], [facility], [place], [address] Subjective: * Chief Complaints: * U rologist referral * Medical History: * Surgical History: * Hospitalization/Major Diagno stic Procedure: * Medications: Objective: * Vitals: * Physical Examination: Assessment: Plan: * Treatment: * Procedure Codes: * true * Date: Generated for Edouard vivar/Ramona/eTransmitting on: 12/24/2024 11:39 AM EST Consultation Request Notes Referral Date Referring Provider Referred Provider Not es 08/02/2025 Bhargav Joe Alexander erectil e dysfunstion
--- NOTE | 2025-10-23 10:33 | MHC.OFFVIS ---
Intake Visit Reasons: Erectile dysfunction SET UA Intake Note: New Patient is present for Erectile Dysfunction Urology Rx:Tadalafil Blood Thinners: none NKDA Imaging completed: none Labs done 05/21/25: Total PSA 0.79, Total Testosterone 439, Fr Testosterone 71.1 Smoker :Nicotein chew Home Visitor Required: No Accompanied by: Self / Same As Patient Allergies No Known Allergies Allergy (Verified 10/23/25 10:34) HPI Comments Details: Blanca is a pleasant male. He is seen for the following urologic conditions - erectile dysfunction Known sleep apnea Smoker Prior laboratory - 12/26 T 439 FT 71 P 0.8 PFSH Medical History (Updated 10/23/25 @ 11:36 by Trey Gillette MD) Port-wine stain JAYME (obstructive sleep apnea) Psoriasis Surgical History H/O colonoscopy Hx of foot surgery Hx of knee surgery Hx of elbow surgery Family History Father HTN (hypertension) Mother HTN (hypertension) Social History Patient Tobacco Use Status: Former Tobacco user Tobacco use type: Cigarette Results AMB Urinalysis, Automated UA Leukoctes 0 Yovany/uL Last Edit by Lisa Becerril CCM on 10/23/25 11:04 UA Nitrite Negative Last Edit by Lisa Becerril [facility] on 10/23/25 11:04 UA Urobilinogen 0.2 mg/dL Last Edit by Lisa Becerril [facility] on 10/23/25 11:04 UA Protein 0 mg/dL Last Edit by Lisa Becerril [facility] on 10/23/25 11:04 UA pH 6.0 Last Edit by Lisa Becerril [facility] on 10/23/25 11:04 UA Blood 10 Tom/uL Last Edit by Lisa Becerril [facility] on 10/23/25 11:04 UA Specific [place] 1.020 Last Edit by Lisa Becerril [facility] on 10/23/25 11:04 UA Ketone Negative Last Edit by Lisa Becerril CCM on 10/23/25 11:04 UA Bilirubin 0 mg/dL Last Edit by ELIUD Petersen on 10/23/25 11:04 UA Glucose 0 mg/dL Last Edit by ELIUD Petersen on 10/23/25 11:04 Results Reviewed Results Reviewed: Laboratory Last Values Urine pH (Auto) 6.0 10/23/25 10:51 Specific [place] (Auto) 1.020 10/23/25 10:51 Urine Protein (Auto) 0 mg/dL 10/23/25 10:51 Glucose (UA)(Auto) 0 mg/dL 10/23/25 10:51 Urine Ketones (Auto) Negative 10/23/25 10:51 Urine Blood (Auto) 10 Tom/uL 10/23/25 10:51 Urine Nitrite (Auto) Negative 10/23/25 10:51 Urine Bilirubin (Auto) 0 mg/dL 10/23/25 10:51 Urine Urobilinogen (Auto) 0.2 mg/dL 10/23/25 10:51 Leukocyte Esterase (Auto) 0 Yovany/uL 10/23/25 10:51 Assessment & Plan Assessment & Plan (1) Erectile dysfunction: Code(s): N52.9 - Male erectile dysfunction, unspecified Category: Medical Orders: Orders Estrad Free (Tot Ultra + Free) Today N52.9 - Male erectile dysfunction, unspecified AMB Urinalysis Automated Today N13.8 - Other obstructive and reflux uropathy, N40.1 - Benign prostatic hyperplasia with lower urinary tract symptoms Testosterone, Free/Total Today N52.9 - Male erectile dysfunction, unspecified Lutenizing Hormone Today N52.9 - Male erectile dysfunction, unspecified Coding Diagnoses Erectile dysfunction N52.9
--- OUTSIDE RECORDS SUMMARY | 2025-10-23 11:39 | XMS_ITS | Patient Health Record ---
Author Organization Bhargav Joe MD Address [address] [place], [place] [id number] Care Team Providers Care Senior Project Leader/Team Lead Name Role Phone Bhargav Joe Primary Care Provider Allergies No Known Allergies Results Component Value Reference Range Notes Complete Blood Count Auto Di ff Reviewed date:05/21/2025 12:41:55 PM Interpretation: Performing Lab:[facility], [address] [place] [phone] Notes/Report: White Blood Count 5.8 4.8-10.8 X10*3/uL [...] NRBC Abs Auto 0.000 0.0-0.012 X10*3/uL Comprehensive [place]. Panel Fa st Reviewed date:05/21/2025 12:42:12 PM Interpretation: Performing Lab:[address] [address] Notes/Report: Sodium 139 135-145 mmol/L Potassium 4.3 [...] Sensitivity Reviewed date:05/25/2025 09:24:04 PM Interpretation: Performing Lab:[address] [address] Notes/Report: CRP High Sensitivity 0.4 Reference Range [...] for Disease Control and Prevention and the [place] [employer]. Circulation 2003; 107(3): 499-511. THIS TEST WAS PERFORMED AT: [employer] [address] [place] [phone] LAST BOLES MD Lipid Panel Reviewed date:05/21/2025 12:38:41 PM Interpretation: Performing Lab:[address] [address] Notes/Report: Triglycerides 66 <150 mg/dL Desirable Triglyceride: [...] (Free>4and<10) Reviewed date:05/21/2025 12:37:57 PM Interpretation: Performing Lab:[facility], [address] [place] [phone] Notes/Report: PSA,Total (Free>4and<10) 0.79 0.00-4.00 ng/mL A [...] Total Reviewed date:05/21/2025 12:39:08 PM Interpretation: Performing Lab:[address] [address] Notes/Report: Vitamin D 25-OH Total 78.7 >30 [...] Free/Total Reviewed date:05/25/2025 09:30:36 PM Interpretation: Performing Lab:[address] [address] Notes/Report: Testosterone, Total 952 800-8207 ng/dL For additional information, please refer to http://education.AdYapper.Logicalware/faq/ TotalTestosteroneLCMSMSFAQ1 65 (This link is being provided for informational/ educational purposes only.) This test was developed and its analytical performance characteristics have been determined by [facility] [place]. It has not been cleared or approved by the U.S. Food and Drug Administration. This assay has been validated pursuant to the CLIA regulations and is used for clinical purposes. Testosterone, Free 71.1 35.0-155.0 pg/mL This test was developed and its analytical performance characteristics have been determined by [facility] [place] [place]. It has not been cleared or approved by the U.S. Food and Drug Administration. This assay has been validated pursuant to the CLIA regulations and is used for clinical purposes. THIS TEST WAS PERFORMED AT: [employer] [address] CASIMIRO LAYNE MD,PHD [employer] w/rflx Cul t Reviewed date:05/21/2025 12:40:58 PM Interpretation: Performing Lab:[facility], [address] [place] [phone] Notes/Report: [id number] Urine, Clean Catch Color Urine Yellow Appearance Urine Clear PH 5.5 5.0-9.0 Glucose Urine UA Negative Negative mg/dL Urine Blood Negative Negative Specific [place] - Urine 1.020 1.005-1.025 Urine Protein Negative [...] gy Reviewed date:05/21/2025 12:37:49 PM Interpretation: Performing Lab:[facility], [address] [place] [phone] Notes/Report: Hold Lav - Possible Hematology SEE [...] Problem Status W/U Status Risk Notes Problem 19243697 Vitamin D defici ency (E55.9) Active confirmed Problem 744758619 Erectile dysfunc tion due to diseases classified elsewhere (N52.1) Active confirmed Problem 4126262 Psoriasis (L40.9) Active confirmed Problem 58009551 Obstructive slee p apnea syndrome (G47.33) Active confirmed Problem 904767151 Erectile dysfunc tion, unspecified erectile dysfunction type (N52.9) Active confirmed Problem 223144997 Cervical disc di sease (M50.90) Active confirmed Problem 75358459 Hypercholesterol emia (E78.00) Active confirmed Problem 28128357 JAYME (obstructive sleep apnea) (G47.33) Active confirmed [...] Bhargav Joe MD [address] [place] [id number] 05/21/2025 Bhargav Joe Blood tests for rout ine general physical examination Z00.00 ; Hypercholesterolemia E78.00 ; Vitamin D deficiency E55.9 and Erectile dysfunction due to diseases classified elsewhere N52.1 Bhargav Joe MD [address] [place] [id number] 05/28/2025 Bhargav Joe Annual physical exam Z00.00 ; Hypercholesterolemia E78.00 and JAYME (obstructive sleep apnea) G47.33 Bhargav Joe MD [address] [place] [address] Drive [address] [place] [id number] 03/27/2025 Bhargav Joe MD [address] [place] [address] Drive [address] [place] [id number] 07/30/2025 Bhargav Joe Assessments Encounter Date Diagnosis [...] cpap needs referral to dr lim at [facility] [place] 05/21/2025 Erectile dysfunction due to diseases classified elsewhere (ICD-10 - N52.1) Plan Of Treatment Pending Test Test Name Order Date MRI CERVICAL SPINE NO CONTRAST 8 Next Appt Details Provider Name:Bhargav heart, 11/29/2025 03:00:00 PM, [address] [place] [address], [address], [id number], Provider Name:Bhargav heart, 05/23/2026 07:15:00 AM, [address] [place] [address], [address], [id number], Provider Name:Bhargav heart, 05/30/2026 02:30:00 PM, [address] [place] [address], [address], [id number], Insurance Providers Payer Name Payer Address Payer Phone Subscriber Number Group Number Insured Name Patient Relationship to Insured Coverage Start Date Coverage End Date [address] [facility] [phone] [id number] Ty Nicholson Self - patient is the insured Medical (General) History Medical History History ICD Code colonoscopy 2023 repeat in 10 years colonoscopy repeat 10y
--- OUTSIDE RECORDS SUMMARY | 2025-10-23 11:39 | XMS_ITS | Clinical Summary ---
Author Organization [facility] Address [address] [place] [address] Phone Care Team Providers Care Hydro Station Supervisor Name Role Phone Bhargav Joe MD Primary [...] this topic Medical Devices Implanted Type Area Manager Process Improvement Device Identifier Shelf Expiration Date Model / Serial / Lot Screw Bone 60x3.5mm Compression Ss Locking Self Tapping Full Thread T15 Stardrive Recess - [id number] Implanted:Qty: 2 on 03/15/2023 by Nazario Son MD at [facility] Right: Knee [employer] 212.124 / / Screw Bone 40x3.5mm Compression Ss Locking Self Tapping Full Thread T15 Stardrive Recess - [id number] Implanted:Qty: 1 on 03/15/2023 by Nazario Son MD at [facility] Right: Knee [employer] 212.117 / / Screw Bone 50x3.5mm Compression Ss Locking Self Tapping Full Thread T15 Stardrive Recess - [id number] Implanted:Qty: 1 on 03/15/2023 by Nazario Son MD at [facility] Right: Knee [employer] 212.121 / / Screw Bone 3.5x40mm Cortex Self Tapping Fully Threaded Hex Head Ss - [id number] Implanted:Qty: 1 on 03/15/2023 by Nazario Son MD at [facility] [employer] Right: Knee [employer] 204.840 / / Screw Bone 3.5x38mm Cortex Self Tapping Fully Threaded Hex Head Ss - [id number] Implanted:Qty: 1 on 03/15/2023 by Nazario Son MD at [facility] [employer] Right: Knee [employer] 204.838 / / Screw Screw Right: Heel Screw Screw Right: Elbow Graft Bone 12t73qy Freeze Dried Readi Cancellous Implantable - [id number] Implanted:Qty: 1 on 03/15/2023 by Nazario Son MD at [facility] Right: Knee [employer] 03/02/2026 CANBLOCK / / Tibia Plate 3.5x87mm Sm 4 Hole L Lcp Ss Variable Angle Bend Imal Right - [id number] Implanted:Qty: 1 on 03/15/2023 by Nazario Son MD at [facility] Right: Knee [employer] 02.127.210 / / Screw Self-Tapping 3.5 Va Locking Sd/70 - [id number] Implanted:Qty: 1 on 03/15/2023 by Nazario Son MD at [facility] Right: Knee [employer] 02.127.170 / / Screw Self-Tapping 3.5 Va Locking Sd/65 - [id number] Implanted:Qty: 1 on 03/15/2023 by Nazario Son MD at [facility] Right: Knee [employer] 02.127.165 / / Screw Self-Tapping 3.5 Va Locking Sd/80 - [id number] Implanted:Qty: 1 on 03/15/2023 by Nazario Son MD at [facility] Right: Knee [employer] 02.127.180 / / Insurance HMO [address] [place], [place] [address] [address] [address] [address] [place] [address] HMO [facility] HMO Advance Directives For more information, please contact: [phone] (9AM - 5PM [facility], Wednesday-Wednesday) * Full Code (Latest Code Status on File) Date Activated Date Inactivated Comments 03/15/2023 6:04 AM Question Answer Comments Code Status Confirmed With: Patient Care Teams Hydro Station Supervisor Relationship Specialty Start Date End Date Bhargav Joe MD [address] [place] [address] PCP - General Internal Medicine 09/20/20 Additional Source Comments The information contained in this document represents components of the legal health record. It is not the complete legal health record.[facility]
--- OUTSIDE RECORDS SUMMARY | 2025-10-23 11:39 | XMS_ITS | Encounter Summary ---
Author Organization [facility] Address [address] [place] [address] Phone Care Team Providers Care Telecommunication Tower Technician Name Role Phone Bhargav Joe MD Primary Care Provider Dawit Merritt MD Unavailable [phone] Encounter Details Date Type Department Care Team (Late st Contact Info) Description 03/08/2023 Procedure Pass [facility], Ct Scan - [facility] [address] [place] [address] Social History Tobacco Use Types Packs/Day Years [...] on filedocumented in this encounter Care Teams Telecommunication Tower Technician Relationship Specialty Start Date End Date Bhargav Joe MD [address] [place] [address] Dr [place] [address] [place] [address] PCP - General Internal Medicine 09/20/20 Dawit Merritt MD [address] [place] [address], [address] [place] [address] [email or web address] Insurance Assigned Provider 06/06/23 07/10/23 documented as of this encounter Additional Source Comments The information contained in this document represents components of the legal health record. It is not the complete legal health record.[facility]
--- OUTSIDE RECORDS SUMMARY | 2025-10-23 11:39 | XMS_ITS | Encounter Summary ---
Author Organization [facility] Address [address] [place] [address] Phone Care Team Providers Care Parking Patroller Name Role Phone Bhargav Joe MD Primary Care Provider Dawit Merritt MD Unavailable [phone] Encounter Details Date Type Department Care Team ([facility] Contact Info) Description 03/15/2023 Procedure Pass [place] Admitting Dept - Virtual Department [address] [place] [address] Social History Tobacco Use Types Packs/Day Years [...] on filedocumented in this encounter Care Teams Parking Patroller Relationship Specialty Start Date End Date Bhargav Joe MD [address] [place] [address] [place] [address] PCP - General Internal Medicine 09/20/20 Dawit Merritt MD [address] [place] [address], [address] [place] [address] [email or web address] Insurance Assigned Provider 06/06/23 07/10/23 documented as of this encounter Additional Source Comments The information contained in this document represents components of the legal health record. It is not the complete legal health record.[facility]
--- OUTSIDE RECORDS SUMMARY | 2025-10-23 11:39 | XMS_ITS | Encounter Summary ---
Author Organization [facility] Address [address] [place] [address] Phone Care Team Providers Care Steel Manager Name Role Phone Bhargav Joe MD Primary Care Provider Dawit Merritt MD Unavailable [phone] Encounter Details Date Type Department Care Team (Late st Contact Info) Description 03/08/2023 Procedure Pass [facility], Ct Scan - [facility] [address] [place] [address] Social History Tobacco Use Types Packs/Day Years [...] on filedocumented in this encounter Care Teams Steel Manager Relationship Specialty Start Date End Date Bhargav Joe MD [address] [place] [address] Dr SHE[place] [address] [place] [address] PCP - General Internal Medicine 09/20/20 Dawit Merritt MD [address] [place] [address], [address] [place] [address] [email or web address] Insurance Assigned Provider 06/06/23 07/10/23 documented as of this encounter Additional Source Comments The information contained in this document represents components of the legal health record. It is not the complete legal health record.[facility]
--- OUTSIDE RECORDS SUMMARY | 2025-10-23 11:39 | XMS_ITS | Patient Health Record ---
Author Organization [facility] Address [address] [place] [address] Support Name Relationship Address Phone ELIANA LAO Emergency Contact [address] [place] [address] LATANYA LAO Guarantor Unknown [phone] Care Team Providers Care Director Of Planning Name Role Phone Heath RAI, Bhargav Primary Care Provider Nazario Slaughter Unavailable [phone] Allergies No Known Allergies Reason For Referral No Information Medications Medication SIG (Take, Route, Frequency, Duration) Notes Start Date End Date Status Zoryve 0.3 % Cream Apply to the psoriasis areas once daily External; Duration: 30 L400,Unavailabl e Active valACYclovir HCl 1 GM Tablet Oral; Duration: 30 Active Aspirin 81 81 MG Tablet Delayed Release 1 tablet Orally Once a day; Duration: 30 day(s) Active Social History Tobacco Use: Social History Observation Description Date Details (start date - stop date) Former Smoker NA - NA Social History Drugs/Alcohol: Social Info Question Answer Notes Alcohol Screen Did you have a drink containing alcohol in the past year? No Points 0 Interpretation Negative Tobacco Use: Social Info Question Answer Notes Tobacco Use/Smoking Patient is a former smoker How long has it been since you last smoked? 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 [employer] Notes: Nonsmoker; no sig alcohol Problems Problem Type SNOMED Code ICD Code Onset Dates Problem Status W/U Status Risk Notes Problem Colon cancer screening (149072311) Colon cancer screening (Z12.11) Active confirmed Problem Pre-procedure evaluation check (118800727) Encounter for other preprocedural examination (Z01.818) Active confirmed Problem Diverticular disease of colon (973352956) Diverticulosis of large intestine without perforation or abscess without bleeding (K57.30) Active confirmed Plan Of Treatment Future Test Test Name Order Date COLONOSCOPY 02/29/2024 Insurance Providers Payer Name Payer Address Payer Phone Subscriber Number Group Number Insured Name Patient Relationship to Insured Coverage Start Date Coverage End Date [facility] [address] [place] [phone] [id number] LATANYA LAO Self - patient is the insured Medical (General) History Medical History History ICD Code Denies [place],DM,CVA,Lung disease,renal dise ase Psoriasis Surgical History Surgery Date(Month/Year) Elbow right 2023 Knee right 2022 Heel right 2007
--- OUTSIDE RECORDS SUMMARY | 2025-10-23 11:40 | XMS_ITS | Encounter Summary ---
Author Organization [facility] Address [address] [place] [address] Phone Care Team Providers Care Windows Architect Name Role Phone Bhargav Joe MD Primary Care Provider Dawit Merritt MD Unavailable [phone] Encounter Details Date Type Department Care Team (Late st Contact Info) Description 09/20/2020 Procedure Pass [facility], Ct Scan - [address] [address] Social History Tobacco Use Types Packs/Day Years [...] on filedocumented in this encounter Care Teams Windows Architect Relationship Specialty Start Date End Date Bhargav Joe MD [address] [place] [address] [place] [address] PCP - General Internal Medicine 09/20/20 Dawit Merritt MD [address] [facility] [place] [address] [email or web address] Insurance Assigned Provider 06/06/23 07/10/23 documented as of this encounter Additional Source Comments The information contained in this document represents components of the legal health record. It is not the complete legal health record.[facility]
== END 2025-10-23 11:43 | disposition home or self-care (01) ==
LOC: HO.HUSH 10:25
PROVIDERS: Visit Provider Urology
DX: N40.1 Benign prostatic hyperplasia with lower urinary tract symptoms (principal); N13.8 Other obstructive and reflux uropathy

== ENCOUNTER → 2025-10-23 10:24 | Outpatient (BNVA) | payer OTHER, SELFPAY | PROVIDERS: Visit Provider Urology | DX: N52.9 Male erectile dysfunction, unspecified (principal); N40.1 Benign prostatic hyperplasia with lower urinary tract symptoms; N13.8 Other obstructive and reflux uropathy; Z79.899 Other long term (current) drug therapy | CPT/HCPCS: 81003 ==